=== PATIENT | male | born 1990 | race Caucasian/White ===

== ENCOUNTER 2016-12-12 10:23 | Inpatient (IN) | payer OTHER, SELFPAY ==
[2016-12-12] MEDS ORDERED: Ondansetron HCl/PF 4 MG/2 ML Vial ONE (10:32)
[2016-12-12 10:55] LABS: #Basophils 0.1 thou/uL (0.0-0.2); #Eosinphils 0.1 thou/uL (0.0-0.7); #Lymphocytes 2.8 thou/uL (1.20-3.40); #Monocytes 1.1 thou/uL (0.11-0.59); #Neutrophils 12.2 thou/uL (1.40-6.50); %Basophils 0.7 % (0.0-1.0); %Eosinophils 0.9 % (0.0-10.0); %Lymphocytes 17.1 % (21.0-51.0); %Monocytes 6.6 % (0.0-10.0); Hematocrit 51.8 % (42.0-52.0); Mean Platelet Volume 8.6 fL (7.4-10.4); Red Blood Cell (RBC) Count 5.68 mill/uL (4.70-6.10); White Blood Cell (WBC) Count 16.3 thou/uL (4.8-10.8)
[2016-12-12 11:18] LABS: ALT (SGPT) 25 U/L (8-55); AST (SGOT) 26 U/L (5-34); Alkaline Phosphatase 55 U/L (40-150); Anion Gap 21 mmol/L (10-20); BUN (Urea Nitrogen) 20 mg/dL (8.9-20.6); Calc. Creatinine Clearance 0 mL/min (70-130); Calcium 9.5 mg/dL (7.8-10.44); Carbon Dioxide 20 mmol/L (22-29); Chloride 98 mmol/L (98-107); Estimated GFR-MDRD 81; Globulin 3.1 g/dL (2.4-3.5); Protein, Total 7.7 g/dL (6.0-8.3)
[2016-12-12] MEDS ORDERED: Haloperidol Lactate 5 MG/ML VIAL ONE (11:38)
[2016-12-12] MEDS ORDERED: Morphine 10 MG/ML VIAL ONE (11:38)
[2016-12-12 11:50] LABS: Lactic Acid - Sepsis 1.8 mmol/L (0.5-2.2)
[2016-12-12] MEDS ORDERED: Insulin Regular 100 units/100 ml in NS IVPB SCH (12:45)
--- NOTE | 2016-12-12 12:45 | ULT ---
RIGHT UPPER QUADRANT ULTRASOUND: 12/12/2016 PROVIDED CLINICAL HISTORY: Nausea, vomiting, and abdominal pain. FINDINGS: The visualized abdominal aorta, IVC, and pancreas appear normal. The liver demonstrates no mass or intrahepatic biliary ductal dilatation. The common duct is not dilated. The gallbladder demonstrat es no stones, wall thickening, or pericholecystic fluid. The right kidney demonstrates no evidence for hydronephrosis or mass. The renal parenchyma appears echogenic which may reflect medical renal disease. IMPRESSION: 1. No evidence for an acute process. 2. Echogenic right kidney may reflect medical renal disease. POS: OFF
[2016-12-12] MEDS ORDERED: Insulin Regular 300 UNITS/3 ML VIAL ONE (13:15)
[2016-12-12] MEDS ORDERED: Calcium Carbonate 500 MG ChewTAB PO PRN (13:18)
[2016-12-12] MEDS ORDERED: Acetaminophen 325 MG TAB PO PRN (13:18)
[2016-12-12] MEDS ORDERED: hydrALAZINE 20 MG/ML VIAL SLOW IVP PRN (13:18)
[2016-12-12] MEDS ORDERED: Dextrose 5% in Water 1,000 ML IV PRN (13:18)
[2016-12-12] MEDS ORDERED: Dextrose 50% Abboject 50 ML SYRINGE SLOW IVP PRN (13:18)
--- NOTE | 2016-12-12 14:20 | HP ---
CHIEF COMPLAINT: Nausea, vomiting, and 2 episodes of blood in the vomitus. HISTORY OF PRESENT ILLNESS: This is a 26-year-old pleasant gentleman who has been nauseated and vom iting for the last 3 days. The patient denies any constipation or diarrhea. He reports that he can not eat and he has got severe abdominal pain associated with vomiting. He denies any fever, chills, diarrhea or dysuria. He admits that this has happened many times in the past. The last time was i june for which he had went to the emergency room and was given some IV fluids and pain medication a nd sent home. At that point, it resolved by itself. The patient also said that he has had multiple admits for this in the last couple of years and nobody is able to give him accurate diagnosis. He says that he does not take the Reglan, which was prescribed as one of his home medications. The tam pereira right now is going to be admitted for further evaluation and treatment of nausea, vomiting, and hematemesis. PAST MEDICAL HISTORY: Significant for diabetes mellitus, some vague history of irregular heartbeat, possibly paroxysmal atrial fibrillation. PAST SURGICAL HISTORY: None. SOCIAL HISTORY: Marijuana use, tobacco use, no alcohol use, former drug use. FAMILY HISTORY: Significant for no diabetes or high blood pressure. MEDICATIONS: Include Reglan, Lantus and Humalog, he takes about 27 units b.i.d. of Lantus. ALLERGIES: None. REVIEW OF SYSTEMS: Significant for nausea, vomiting, and hematemesis. Otherwise, fever, no chills, no headache, no appetite and latencies. No cough, no chest pain, no diarrhea, dysuria or polyuria. No memory or mood changes. No neck pain. Please note in HPI, the abdominal pain started along wi th nausea, vomiting, and is supposed to be quite severe at about 9/10 in intensity. It does not rad iate. It is generalized, not associated with food. PHYSICAL EXAMINATION: VITAL SIGNS: Blood pressure is 143/71, pulse is 72, respirations 19, satting well on room air. GENERAL: Patient is lying in bed in moderate distress because of the nausea, vomiting, abdominal pa in. HEENT: Atraumatic, normocephalic. Pupils equally round, react to light. Extraocular movements int act. Mucous membranes moist. NECK: Supple. No JVD. CHEST: Breath sounds. There are no rales or rhonchi. HEART: S1, S2. No murmurs or gallops. ABDOMEN: Soft, tenderness present, generalized. Bowel sounds are present. No rebound, no guarding . EXTREMITIES: No cyanosis, clubbing or edema. Distal pulses present. NEUROLOGIC: Alert, awake, oriented. No cranial deficits. No sensorimotor deficits. SKIN: Shows multiple tattoos. NEUROLOGICAL: Alert, awake, oriented. No cranial deficits. No sensorimotor deficits. LABORATORY DATA: Lactic acid is 1.8. Lipase is 4, potassium is 3.7, creatinine is 1.08. WBC count of 16.3, hemoglobin is 16. Gallbladder ultrasound was normal. UDS is pending. UA is pending. CT scan of the abdomen is pending. ASSESSMENT AND PLAN: 1. Nausea, vomiting with some episode of hematemesis. We will monitor H\T\H. IV Protonix b.i.d. Gastrointestinal consult and will transfuse if needed. 2. Elevated white count and hemoglobin possibly secondary to dehydration secondary to nausea, vomit ing, and poor oral intake. We will hydrate the patient and monitor the labs. 3. Nausea, vomiting, possible cause could be diabetic gastroparesis. We will follow CT scan result s. We will work with GI and further caring for that. 4. Tobacco use. The patient has been counseled marijuana use. The patient has been counseled. 5. History of drug use, stable. 6. Diabetes mellitus. We will do insulin sliding scale for now. 7. Sequential compression devices for deep venous thrombosis prophylaxis. I will work with consult ants further caring for the patient.
[2016-12-12 14:37] LABS: Prothrombin Time 14.3 SEC (12.0-14.7)
[2016-12-12 15:08] VITALS: BMI 21.8
[2016-12-12] MEDS: Sodium Chloride 0.9% 1,000 ML IV SCH (15:16)
[2016-12-12] MEDS: Ondansetron HCl/PF 4 MG/2 ML Vial IVP PRN ×2 (15:22→21:21)
[2016-12-12] MEDS: Nicotine 21 MG PATCH TD SCH (15:23)
[2016-12-12] MEDS: Morphine 10 MG/ML VIAL SLOW IVP PRN ×2 (15:27→21:21)
[2016-12-12] MEDS ORDERED: Iopamidol 370 76% 50 ML VIAL FS ONE (16:17)
[2016-12-12] MEDS ORDERED: ISOVUE-370 76%-LOCM 1 ML ONE (16:17)
--- NOTE | 2016-12-12 17:15 | CT ---
CT ABDOMEN AND PELVIS WITH IV AND ORAL CONTRAST: HISTORY: Abdominal pain. Nausea and vomiting. Constipation. FINDINGS: The lung bases are clear. The liver, spleen, kidneys, adrenal glands, and pancreas have a normal CT appearance. No enlarged lymph nodes or free fluid are apparent. Urinary bladder is incompletely d istended. 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 The appendix is not well-delineated although no inflammation is apparent. IMPRESSION: Chronic type findings are stable. No significant abnormalities are demonstrated. POS: [facility]
[2016-12-12] MEDS: HumaLOG 300 UNITS/3 ML VIAL SC PRN ×2 (17:37→20:06)
[2016-12-12 17:59] LABS: Bilirubin Negative (Negative); Blood, Urine Negative (Negative); Glucose, Urine (Dipstick) >=1000 mg/dL (Negative); Ketone, Urine 40 mg/dL (Negative); Nitrite Negative (Negative); Protein, Urine (Dipstick) Negative (Neg-Trace); Urobilinogen 0.2 mg/dL (0.2-1.0)
[2016-12-12 18:01] LABS: Bacteria/HPF None Seen HPF (None Seen); Hyaline Casts/LPF 0-3 HYALINE CAST LPF (0-3 Hyaline); RBC/HPF None Seen HPF (0-3); Squamous Epithelial None Seen HPF (0-3); WBC/HPF 0-3 HPF (0-3)
[2016-12-12 18:09] LABS: Amphetamine Not Detected (NotDetected); Methadone Not Detected (NotDetected); Methamphetamine Not Detected (NotDetected)
[2016-12-12] MEDS: Pantoprazole 40 MG VIAL IVP SCH (20:05)
[2016-12-12] MEDS ORDERED: Docusate 100 MG CAP PO SCH (21:00)
--- NOTE | 2016-12-12 21:07 | CON ---
DATE OF CONSULTATION: 12/12/2016 GI INPATIENT CONSULTATION NOTE REQUESTING PHYSICIAN: Mere Gonzalez MD REASON FOR CONSULTATION: Hematemesis. HISTORY OF PRESENT ILLNESS: Chaitanya Ross is a 26-year-old man with a history of diabetes who is on insulin. He reports multiple episodes of diabetic ketoacidosis in the past. He has had several hospital admissions here and [place] for recurrent nausea and vomiting. He reports having had EGD s in the past, unsure of the findings. I do not see any documentation of that in our system. He presented with about 3 days of nausea and vomiting, and what he thought was hematemesis. He says this came on fairly acutely after he went to a birthday and ate sushi for the first time. He start ed having severe epigastric pain and repeated emesis and has been unable to really keep anything [place] n over the past 3 days. Upon presentation, he was found to be in diabetic ketoacidosis with elevate d beta hydroxybutyrate, elevated glucose and elevated anion gap. He has been hemodynamically stable . He has had a couple more episodes of emesis and per nursing staff, there has been no evidence of hematemesis at all, no coffee grounds material, nothing red. The patient himself is really not sure whether there was blood before or not. His hemoglobin is 15.3. He was started on an IV PPI. Curr ently, he is feeling a bit better with rehydration. He had an abdominal ultrasound and a CT of the abdomen which are showing no acute processes. He denies any diarrhea or constipation, change in bow el habits, melena or hematochezia. REVIEW OF SYSTEMS: Full review of systems including constitutional, head, eyes, ears, nose, throat, GI, , cardiovascular, respiratory, musculoskeletal, and neurologic systems is negative except as noted in the HPI. PAST MEDICAL HISTORY: Diabetes type 1 with several episodes of diabetic ketoacidosis. ALLERGIES: No known drug allergies. OUTPATIENT MEDICATIONS: Lantus insulin, Humalog insulin. Reglan is on his medication list, but the patient does not take this. SOCIAL HISTORY: The patient does smoke tobacco. No alcohol abuse. He does use marijuana a few joanna es a week. FAMILY HISTORY: Noncontributory. PHYSICAL EXAMINATION: VITAL SIGNS: Temperature 97.1, pulse 92, blood pressure 108/67, 92% oxygen saturation on room air. GENERAL: A 26-year-old man lying in bed comfortably, in no acute distress. SKIN: No jaundice, no rash visible or palpable. EYES: No scleral icterus. Extraocular movements intact. ENT: Mucous membranes moist, no oral lesions. LYMPH: No submandibular, supraclavicular lymphadenopathy. THYROID: Nontender to palpation. HEART: Regular rate and rhythm. LUNGS: Clear to auscultation bilaterally. ABDOMEN: Bowel sounds present, soft, mild tenderness to the epigastrium, but no guarding, rebound t enderness, nondistended. EXTREMITIES: No peripheral edema. VESSELS: Radial pulses 2+ bilaterally. NEUROLOGICAL: Cranial nerves II-XII intact bilaterally. No focal deficits. LABORATORY STUDIES: WBC 16.3, hemoglobin 15.3, platelets 219. INR 1.1. Sodium 135, potassium 3.7, anion gap is 21, BUN 20, creatinine 1.08, glucose 278, lipase less than 4. Total bilirubin only 1. 0, alkaline phosphatase 55, AST 26, ALT 25, albumin 4.6. Lactic acid 1.8. Beta hydroxybutyrate 1.7 3. IMAGING STUDIES: Abdominal ultrasound shows normal liver, gallbladder, common bile duct and pancrea s. CT of the abdomen and pelvis demonstrates no acute findings. There are some chronic stable malr otation of the lower intestine, but again no acute findings, no bowel dilation, no inflammatory find ings, normal appearing liver and pancreas. ASSESSMENT AND PLAN: 1. Reported hematemesis. 2. Nausea and vomiting. 3. Epigastric pain. 4. Diabetic ketoacidosis. 5. Cannabis abuse. His presentation seems most consistent with diabetic ketoacidosis. This was likely set off after he probably had food poisoning a few days ago and then once he got dehydrated it became vicious cycle. It is unclear whether he really had hematemesis or not. His hemoglobin is certainly normal and th ere seems to be no evidence of that here. I do agree with the IV PPI for now. Would recommend we p roceed with EGD tomorrow to rule out peptic ulcer disease or other bleeding lesion. Other less like ly considerations would include diabetic gastroparesis versus cannabis hyperemesis syndrome. Thank you for the consultation. Please call with questions or concerns.
[2016-12-13] MEDS: Sodium Chloride 0.9% 1,000 ML IV SCH ×3 (00:41→17:29)
[2016-12-13 04:41] LABS: #Eosinphils 0.1 thou/uL (0.0-0.7); #Lymphocytes 3.7 thou/uL (1.20-3.40); #Neutrophils 7.1 thou/uL (1.40-6.50); %Basophils 0.3 % (0.0-1.0); %Eosinophils 0.7 % (0.0-10.0); %Lymphocytes 31.2 % (21.0-51.0); %Monocytes 8.1 % (0.0-10.0); Hematocrit 40.9 % (42.0-52.0); Mean Platelet Volume 9.5 fL (7.4-10.4); White Blood Cell (WBC) Count 11.8 thou/uL (4.8-10.8)
[2016-12-13 04:57] LABS: Anion Gap 9 mmol/L (10-20); BUN (Urea Nitrogen) 14 mg/dL (8.9-20.6); Calc. Creatinine Clearance 145 mL/min (70-130); Calcium 8.5 mg/dL (7.8-10.44); Carbon Dioxide 29 mmol/L (22-29); Chloride 101 mmol/L (98-107); Estimated GFR-MDRD Greater than 90
[2016-12-13] MEDS: Morphine 10 MG/ML VIAL SLOW IVP PRN ×2 (05:54→12:08)
[2016-12-13] MEDS: Ondansetron HCl/PF 4 MG/2 ML Vial IVP PRN (05:54)
[2016-12-13] MEDS: Pantoprazole 40 MG VIAL IVP SCH ×2 (07:52→20:15)
[2016-12-13] MEDS ORDERED: Morphine 4 MG/ML Carpuject ONE (09:35)
[2016-12-13] MEDS ORDERED: Insulin Regular 300 UNITS/3 ML VIAL ONE (09:56)
[2016-12-13] MEDS ORDERED: Propofol 200 MG/20 ML VIAL ONE (10:43)
--- NOTE | 2016-12-13 11:12 | OP ---
DATE OF PROCEDURE: 12/13/2016 GI ENDOSCOPY NOTE SURGEON: Peter Talbot M.D. APPRENTICESHIP REPRESENTATIVE SURGEON: None. PROCEDURE: Esophagogastroduodenoscopy, diagnostic. INDICATIONS: 1. Reported hematemesis. 2. Nausea and vomiting in the context of diabetic ketoacidosis. MEDICATIONS: See anesthesia record. FINDINGS: After discussion of the risks, benefits and alternatives of the procedure, informed conse nt was obtained and witnessed. Pre-endoscopic cardiopulmonary examination was satisfactory. DESCRIPTION OF PROCEDURE: Timeout was performed before sedation was achieved. Sedation was achieve d with anesthesia assistance in the endoscopy unit. A Pentax adult upper endoscope was placed into the oropharynx and passed through the cricopharyngeus under direct visualization. The esophageal mu cosa appeared normal throughout with a normal-appearing Z-line. There was no evidence of any Mallor y-Boyle tear or esophagitis. The endoscope was advanced into the stomach. Forward and retroflexed views of the entire gastric mucosa were obtained. The gastric mucosa appeared normal. No evidence of any old blood, active bleeding, or bleeding lesion. The endoscope was passed through the pylorus and into the first and second portions of the duodenum, which also appeared normal. The upper endo scope was then completely withdrawn and the patient allowed to recover. The patient tolerated the p rocedure well. There were no immediate post-procedure complications. IMPRESSION: Normal esophagogastroduodenoscopy. RECOMMENDATIONS: 1. Advance diet as tolerated. 2. Continue symptomatic treatment. 3. Continue with treatment of underlying metabolic disturbances. GI will sign off at this time, but please call back with questions or concerns.
--- NOTE | 2016-12-13 12:34 | PDOC.PN ---
- Subjective Encounter Start Date: 12/13/16 Encounter Start Time: 08:30 -: old records requested/rev Patient seen and examined. No new complaints. No overnight events - Objective MAR Reviewed: Yes Vital Signs & Weight: Vital Signs (12 hours) Temp Pulse Resp BP Pulse Ox 12/13/16 11:15 97.4 F L 70 16 111/64 99 12/13/16 08:00 97.9 F 76 16 96 12/13/16 07:26 97.9 F 76 16 111/64 96 12/13/16 04:09 97.8 F 63 18 98/58 L 96 I&O: 12/12/16 12/13/16 12/14/16 06:59 06:59 06:59 Intake Total 1.4 Balance 1.4 Result Diagrams: 12/13/16 03:31 12/13/16 03:31 Additional Labs: Accuchecks 12/13/16 12/13/16 12/13/16 11:25 10:58 10:28 POC Glucose 258 H 291 H 326 H 12/13/16 12/13/16 12/12/16 09:42 05:49 19:26 POC Glucose 324 H 323 H 311 H 12/12/16 12/12/16 16:19 13:19 POC Glucose 274 H 278 H Phys Exam - Physical Examination Constitutional: NAD HEENT: PERRLA, moist MMs, sclera anicteric Neck: no JVD, supple Respiratory: no wheezing, no rales, no rhonchi Cardiovascular: RRR, no significant murmur, no rub Gastrointestinal: soft, no distention, positive bowel sounds epigastric tenderness Musculoskeletal: no edema, pulses present Neurological: non-focal, normal sensation, moves all 4 limbs Psychiatric: normal affect, A&O x 3 Skin: no rash, normal turgor Dx/Plan (1) Epigastric abdominal pain Code(s): R10.13 - EPIGASTRIC PAIN Status: Acute (2) Hematemesis Code(s): K92.0 - HEMATEMESIS Status: Suspected Qualifiers: Nausea presence: with nausea Qualified Code(s): K92.0 - Hematemesis (3) Nausea & vomiting Code(s): R11.2 - NAUSEA WITH VOMITING, UNSPECIFIED Status: Acute (4) Cannabis abuse Code(s): F12.10 - CANNABIS ABUSE, UNCOMPLICATED Status: Chronic (5) Diabetes type 1, uncontrolled Code(s): E10.65 - TYPE 1 DIABETES MELLITUS WITH HYPERGLYCEMIA Status: Chronic - Plan cont current plan of care, plan discussed w/ family * egd is normal * continue advancing diet * medication reviewed as below * symptomatic treatment * consider discharge tomorrow. Review of Systems - Review of Systems Constitutional: negative: Fever, Chills, Sweats, Weakness, Malaise, Other Eyes: negative: Pain, Vision Change, Conjunctivae Inflammation, Eyelid Inflammation, Redness, Other ENT: negative: Ear Pain, Ear Discharge, Nose Pain, Nose Discharge, Nose Congestion, Mouth Pain, Mouth Swelling, Throat Pain, Throat Swelling, Other Respiratory: negative: Cough, Dry, Shortness of Breath, Hemoptysis, SOB with Excertion, Pleuritic Pain, Sputum, Wheezing Cardiovascular: negative: Chest Pain, Palpitations, Orthopnea, Paroxysmal Noc. Dyspnea, Edema, Light Headedness, Other Gastrointestinal: Nausea, Abdominal Pain. negative: Vomiting, Diarrhea, Constipation, Melena, Hematochezia, Other Genitourinary: negative: Dysuria, Frequency, Incontinence, Hematuria, Retention , Other Musculoskeletal: negative: Neck Pain, Shoulder Pain, Arm Pain, Back Pain, Hand Pain, Leg Pain, Foot Pain, Other Skin: negative: Rash, Lesions, Angelo, Bruising, Other - Medications/Allergies Allergies/Adverse Reactions: Allergies Allergy/AdvReac Type Severity Reaction Status Date / Time No Known Allergies Allergy Verified 12/12/16 15:07 Medications: Current Medications Acetaminophen (Tylenol) 650 mg PO Q4H PRN PRN Reason: Headache/Fever or Pain Calcium Carbonate (Tums) 1,000 mg PO Q4H PRN PRN Reason: Heartburn or Indigestion Dextrose/Water (Dextrose 50%) 25 gm SLOW IVP PRN PRN PRN Reason: Hypoglycemia Glucagon (Glucagon) 1 mg IM PRN PRN PRN Reason: Hypoglycemia Hydralazine HCl (Apresoline) 10 mg SLOW IVP Q4H PRN PRN Reason: Systolic BP > 180 Insulin Human Regular 100 (units/ Sodium Chloride) 101 mls @ 0 mls/hr IVPB INF CARLEE PRN Reason: Titrate Dextrose/Water (D5w) 1,000 mls @ 0 mls/hr IV .Q0M PRN; As Directed PRN Reason: Hypoglycemia Sodium Chloride (Normal Saline 0.9%) 1,000 mls @ 100 mls/hr IV .Q10H [facility] Stop: 12/14/16 13:31 Last Admin: 12/13/16 07:55 Dose: 1,000 mls Insulin Human Lispro (Humalog) 0 units SC .AGGRESSIVE SLIDING PRN PRN Reason: Aggressive Correctional Scale Last Admin: 12/12/16 20:06 Dose: 11 unit Metoclopramide HCl (Reglan) 5 mg IVP Q4H PRN PRN Reason: Nausea Morphine Sulfate (Morphine) 2 mg SLOW IVP Q4H PRN PRN Reason: Pain Stop: 12/13/16 13:54 Last Admin: 12/13/16 12:08 Dose: 2 mg Nicotine (Nicoderm Patch) 21 mg TD Q24HR [facility] Last Admin: 12/12/16 15:23 Dose: 21 mg Ondansetron HCl (Zofran) 4 mg IVP Q6H PRN PRN Reason: Nausea/Vomiting Last Admin: 12/13/16 05:54 Dose: 4 mg Pantoprazole Sodium (Protonix) 40 mg IVP BID [facility] Last Admin: 12/13/16 07:52 Dose: 40 mg Sodium Chloride (Flush - Normal Saline) 10 ml IVF PRN PRN PRN Reason: Saline Flush Last Admin: 12/12/16 20:05 Dose: 10 ml
[2016-12-13] MEDS: HumaLOG 300 UNITS/3 ML VIAL SC PRN ×2 (15:54→20:16)
[2016-12-13] MEDS: Nicotine 21 MG PATCH TD SCH (15:57)
[2016-12-13] MEDS: traMADol HCl 50 MG TAB PO PRN ×2 (16:48→22:46)
[2016-12-14] MEDS: Sodium Chloride 0.9% 1,000 ML IV SCH (01:59)
[2016-12-14 04:57] LABS: #Basophils 0.1 thou/uL (0.0-0.2); #Eosinphils 0.1 thou/uL (0.0-0.7); #Lymphocytes 2.8 thou/uL (1.20-3.40); #Monocytes 0.7 thou/uL (0.11-0.59); #Neutrophils 5.5 thou/uL (1.40-6.50); %Basophils 0.7 % (0.0-1.0); %Eosinophils 1.2 % (0.0-10.0); %Lymphocytes 30.4 % (21.0-51.0); %Monocytes 7.8 % (0.0-10.0); Hematocrit 41.7 % (42.0-52.0); Mean Platelet Volume 8.7 fL (7.4-10.4); Red Blood Cell (RBC) Count 4.53 mill/uL (4.70-6.10); White Blood Cell (WBC) Count 9.1 thou/uL (4.8-10.8)
[2016-12-14] MEDS: HumaLOG 300 UNITS/3 ML VIAL SC PRN ×2 (05:10→08:45)
[2016-12-14 05:11] LABS: Anion Gap 14 mmol/L (10-20); BUN (Urea Nitrogen) 18 mg/dL (8.9-20.6); Calc. Creatinine Clearance 120 mL/min (70-130); Calcium 8.4 mg/dL (7.8-10.44); Carbon Dioxide 22 mmol/L (22-29); Chloride 103 mmol/L (98-107); Estimated GFR-MDRD 89
[2016-12-14] MEDS: Ondansetron HCl/PF 4 MG/2 ML Vial IVP PRN ×2 (05:15→11:21)
[2016-12-14] MEDS: Metoclopramide HCl 10 MG/2 ML VIAL IVP PRN ×2 (06:19→09:32)
[2016-12-14 08:24] VITALS: BP 152/87
[2016-12-14] MEDS: Pantoprazole 40 MG VIAL IVP SCH (08:41)
[2016-12-14] MEDS ORDERED: INSULIN DETEMIR SC SCH (09:00)
[2016-12-14] MEDS ORDERED: PRE FILLED SC SCH (09:00)
[2016-12-14] MEDS ORDERED: INSULIN GLARGINE HUM REC ANLOG 27 UNIT SQ SCH (09:00)
--- NOTE | 2016-12-14 11:50 | PDOC.PN ---
- Subjective Encounter Start Date: 12/14/16 Encounter Start Time: 06:45 Subjective: c/o abd pain - Objective MAR Reviewed: Yes Vital Signs & Weight: Vital Signs (12 hours) Temp Pulse Resp BP Pulse Ox 12/14/16 08:00 99.0 F 74 16 152/87 H 99 12/14/16 04:00 98.2 F 97 20 113/63 98 12/14/16 00:00 98.5 F 77 20 115/66 95 I&O: 12/13/16 12/14/16 12/15/16 06:59 06:59 05:59 Intake Total 2031.4 4866 Output Total 600 Balance 2031.4 4266 Result Diagrams: 12/14/16 04:26 12/14/16 04:26 Additional Labs: Accuchecks 12/14/16 12/13/16 12/13/16 05:07 19:31 15:38 POC Glucose 393 H 356 H 390 H 12/13/16 11:25 POC Glucose 258 H Phys Exam - Physical Examination HEENT: PERRLA, moist MMs Neck: no JVD, supple Respiratory: no wheezing, no rales Cardiovascular: RRR, no significant murmur Gastrointestinal: soft, no distention, positive bowel sounds no rigidity or guarding Musculoskeletal: no edema, pulses present Neurological: non-focal, moves all 4 limbs Psychiatric: A&O x 3 Dx/Plan (1) Epigastric abdominal pain Code(s): R10.13 - EPIGASTRIC PAIN Status: Acute (2) Nausea & vomiting Code(s): R11.2 - NAUSEA WITH VOMITING, UNSPECIFIED Status: Acute Qualifiers: Vomiting type: unspecified (3) Cannabis abuse Code(s): F12.10 - CANNABIS ABUSE, UNCOMPLICATED Status: Chronic (4) Diabetes type 1, uncontrolled Code(s): E10.65 - TYPE 1 DIABETES MELLITUS WITH HYPERGLYCEMIA Status: Chronic Qualifiers: Diabetes mellitus complication status: with hyperglycemia Qualified Code(s) : E10.65 - Type 1 diabetes mellitus with hyperglycemia - Plan I have explained to patient that his CT and usg abdomen are normal -: EGD showed no ulcers/gastritis -: dc pt home -: pt to get his long acting insulin this am prior to dc -: has been off insulins due to npo status * .
[2016-12-14 11:55] VITALS: TEMP 98.9
--- NOTE | 2016-12-14 15:41 | DIS ---
DATE OF ADMISSION: 12/12/2016 DATE OF DISCHARGE: 12/14/2016 DISCHARGE DISPOSITION: To home. PRIMARY DISCHARGE DIAGNOSES: Hematemesis with esophagogastroduodenoscopy being normal. Epigastric pain. Multiple imaging studies, negative. Intractable nausea and vomiting. SECONDARY DISCHARGE DIAGNOSES: Diabetes mellitus type 1 and marijuana abuse. PROCEDURES DONE DURING HOSPITALIZATION: The patient has had a right upper quadrant ultrasound done, which showed no evidence of acute process. 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 No other significant abnormalities were seen. Upper endoscopy done by Dr. Peter Talbot on 12/13/2016 was normal and has had normal esophagogastroduodenoscopy. He had normal esophageal mucosa, normal appearing Z -line, gastric mucosa was normal. There was no old blood or active bleeding seen. Duodenum first and second portion appeared normal. Discharge hemoglobin and hematocrit 13 and 41, platelet count 151. PT/INR 14 and 1.1. Discharge BUN and creatinine is 18 and 1.0. Discharge serum bicarbonate is 22. Lipase was less than 4. Liver enzymes were within normal limits. Urine drug screen was positive for cannabinoids. Beta hydroxybutyrate levels were 0.46 on 2016. DISCHARGE MEDICATIONS: Patient to continue his Levemir 27 units subcu twice daily, Humalog 3 times daily before meals, Reglan p.r.n. twice daily before meals for nausea and vomiting. ALLERGIES: No known drug allergies. DISCHARGE PLAN: Patient to follow up with primary care physician in 1 week. BRIEF COURSE DURING HOSPITALIZATION: Patient initially came to ER with complaints of nausea, vomiting and 2 episodes of blood in his vomitus. He had also complained of epigastric abdominal pain. In view of this history, he was placed on Protonix and a GI consultation with Dr. Peter Talbot was requested. The patient has had upper endoscopy done, which did not reveal any acute abnormalities. He has had right upper quadrant ultrasound and a CT of the abdomen and pelvis done, none of which revealed any acute pathology to explain his epigastric pain, which was excruciating per patient. As all the imaging studies and upper endoscopy were negative with the patient's multiple hospitalizations for similar complaints, there was no organic cause found for his epigastric pain. He was counseled to stop abusing marijuana. He was also counseled regarding cessation of tobacco use. He is hemodynamically stable and will be shortly discharged home. Please see a [id number] documentation on [facility] for the day of discharge. ERMIASD
--- NOTE | 2016-12-21 16:40 | EKG ---
Test Reason : Blood Pressure : / mmHG Vent. Rate : 093 BPM Atrial Rate : 093 BPM P-R Int : 152 ms QRS Dur : 098 ms QT Int : 368 ms P-R-T Axes : 086 100 074 degrees QTc Int : 457 ms Normal sinus rhythm Biatrial enlargement Rightward axis Pulmonary disease pattern Abnormal ECG Confirmed by BRUNO COPPOLA, GABRIEL ([id number]), manager editorial YOEL PARKER ([id number]) on 12/21/2016 4:40:26 PM Referred By: Confirmed By:GABRIEL CARR MD
== END 2016-12-14 11:48 | disposition home or self-care (01) | DRG 638 ==
LOC: ERS 10:23 → T4-B 12:55
PROVIDERS: ADMIT Internal Medicine; ATTEND Internal Medicine
PROC: 0DJ08ZZ Inspection of Upper Intestinal Tract, Via Natural or Artificial Opening Endoscopic (ICD-10-PCS; principal; 2016-12-13)
DX: E10.10 Type 1 diabetes mellitus with ketoacidosis without coma (principal); K92.0 Hematemesis; I48.0 Paroxysmal atrial fibrillation; F17.210 Nicotine dependence, cigarettes, uncomplicated; E86.0 Dehydration; F12.10 Cannabis abuse, uncomplicated; R11.2 Nausea with vomiting, unspecified; Z79.4 Long term (current) use of insulin
CPT/HCPCS: 36415; 36416; 74177; 76705; 80048; 80053; 80306; 81001; 82010; 83605; 83690; 85025; 85610; 93005; 96361; 96372; 96374; 96375; A4216; C9113; J1630; J1815; J2270; J2405; J2704; J2765; J7050

== ENCOUNTER 2017-01-27 13:52 | Inpatient (IN) | payer SELFPAY ==
[2017-01-27 15:34] VITALS: BMI 21.3
[2017-01-27] MEDS ORDERED: Dextrose 5 %-0.45 % NaCl 1,000 ML IV PRN (16:35)
[2017-01-27] MEDS ORDERED: CCU Electrolyte Replacement 1 EACH IVPB ONE (16:35)
[2017-01-27] MEDS ORDERED: Ondansetron HCl/PF 4 MG/2 ML Vial IVP PRN (16:35)
[2017-01-27] MEDS ORDERED: Sodium Chloride 0.9% 1,000 ML IV PRN ×4 (16:35)
[2017-01-27] MEDS ORDERED: NS 0.9% w/ 20 MEQ KCL 1,000 ML IV PRN ×2 (16:35)
[2017-01-27] MEDS ORDERED: Metoclopramide HCl 10 MG/2 ML VIAL IVP PRN (16:35)
[2017-01-27] MEDS ORDERED: D5 1/2 NS w/20 mEq KCL 1,000 ML IV PRN (16:35)
[2017-01-27] MEDS ORDERED: cloNIDine 0.1 MG TAB PO PRN (16:35)
[2017-01-27] MEDS ORDERED: Potassium Chloride 40 MEQ in Sodium Chloride 0.9% 250 ML 250 ML IVPB PRN (17:15)
[2017-01-27] MEDS ORDERED: Potassium Chloride 40 MEQ in Premix Bag 1 BAG IVPB PRN (17:15)
[2017-01-27] MEDS ORDERED: Magnesium 2 GM/NS 0.9% 100 ML 2 GM in Premix Bag 1 BAG IVPB PRN (17:15)
[2017-01-27] MEDS ORDERED: Magnesium Oxide 400 MG TAB PO PRN ×2 (17:15)
[2017-01-27] MEDS ORDERED: Potassium Chloride 20 MEQ TAB PO PRN (17:15)
[2017-01-27] MEDS ORDERED: Potassium Phosphate 9 MMOL in Sodium Chloride 0.9% 100 ML IVPB PRN (17:15)
[2017-01-27] MEDS ORDERED: Potassium Phosphate 15 MMOL in Sodium Chloride 0.9% 250 ML 250 ML IV PRN (17:15)
[2017-01-27] MEDS ORDERED: Potassium Phosphate 12 MMOL in Sodium Chloride 0.9% 250 ML 250 ML IV PRN (17:15)
[2017-01-27] MEDS ORDERED: CCU ELECTROLYTE REPLACEMENT PROTOCOL FS PRN (17:15)
[2017-01-27 17:29] LABS: Anion Gap 13 mmol/L (10-20); BUN (Urea Nitrogen) 22 mg/dL (8.9-20.6); Calc. Creatinine Clearance 89 mL/min (70-130); Calcium 9.5 mg/dL (7.8-10.44); Carbon Dioxide 23 mmol/L (22-29); Chloride 108 mmol/L (98-107); Estimated GFR-MDRD 65
[2017-01-27 17:35] LABS: Phosphorus 1.5 mg/dL (2.3-4.7)
[2017-01-27] MEDS: Morphine 2 MG/ML SYRINGE SLOW IVP PRN ×2 (17:39→21:48)
--- NOTE | 2017-01-27 19:31 | HP ---
The patient is currently between primary care physicians and does not have one. CHIEF COMPLAINT: Nausea, vomiting, and abdominal pain. HISTORY OF PRESENT ILLNESS: Mr. Ross is a pleasant 26-year-old gentleman that has a history of fabián betes mellitus type 1. He has been diabetic for 10 years. He says that in the past 2 weeks he has b een feeling sick off and on having sweats and cold chills, but then yesterday it got extremely bad. He says that he was having severe abdominal pain and vomiting and he says that his entire body is ext remely sore to touch. He denies having any hematemesis or melena. The patient admits to vomiting a large volume. His says that it filled almost an entire trash can in almost 24 hours and his blo od sugars kept reading high and this is the reason that he came into the emergency room. He had gone to [facility] where his blood sugars were noted to be in the 700 range. He also had an elevated anion gap and he is being admitted for DKA. The patient is noted to have been in our [facility] back in December where he had an episode of abdominal pain and nausea and vomiting where he und erwent a CT scan as well as endoscopy without any significant findings. REVIEW OF SYSTEMS: Constitutional: There have been subjective fever and chills. No night sweats or weight loss. HEENT : He denies any headaches, no dizziness, no visual changes, no sore throat, rhinorrhea, neck pain, n o adenopathy. Pulmonary: No hemoptysis, no cough, no wheezing. Cardiovascular: He denies any ches t pain. There is no shortness of breath, no PND, no orthopnea. Gastrointestinal: As the history of present illness. Genitourinary: No urinary frequency, hematuria, no hesitancy. Neurologic: No fo jeffrey weakness, numbness, no seizures. Psychiatric: No symptoms of anxiety or depression. Skin and i ntegument: No skin changes, but he does say he is extremely sensitive to touch where he is basically hurting all over. PAST MEDICAL HISTORY: Significant for diabetes mellitus type 1 for 10 years. He has a history of wh at sounds like atrial fibrillation and also jumper's knee. PAST SURGICAL HISTORY: Negative. SOCIAL HISTORY: He is , has two children. He smokes about a pack of cigarettes daily. Denie s any alcohol use and occasionally uses marijuana. No other illicit drugs. FAMILY HISTORY: Significant for diabetes mellitus. ALLERGIES: No known drug allergies. CURRENT MEDICATIONS: Include NovoLog insulin on a sliding scale as well as NPH insulin 29 units twic e a day, Tylenol and tramadol. PHYSICAL EXAMINATION: GENERAL: He is alert and oriented. He appears to be in some distress. When I came into the room, t he patient was crying and his was at the bedside. HEENT: His pupils are equal, round, and reactive. Extraocular muscles are intact. Sclerae are anic teric. Throat: He has got poor dentition. NECK: There is no adenopathy, no bruits. LUNGS: Clear. There is no wheezing, no rales. CARDIOVASCULAR: He has a normal S1, S2. There is no S3 or S4. No murmurs, clicks, no rubs. ABDOMEN: Soft, it is nontender, nondistended. Positive for bowel sounds. No rebound or guarding. EXTREMITIES: There is no edema. NEUROLOGICALLY: The exam is nonfocal. LABORATORY RESULTS: The lab results from the [facility] were reviewed and he had a normal uri nalysis. The white blood cell count was 42.4, hemoglobin 14.5, hematocrit was 44.7, platelet count i s 273. Sodium was 135, potassium 3.8, chloride is 98, CO2 is 16, BUN of 32, creatinine 1.6, glucose was greater than 700. EKG was sinus tachycardia with right axis deviation, voltage criteria for LVH. Chest x-ray was reported as being negative. ASSESSMENT AND PLAN: This is a pleasant 26-year-old gentleman that presents with, 1. Acute episode of diabetic ketoacidosis. It is likely precipitated by a viral illness. He is analisa ng admitted to the [facility]. He has been placed on an insulin drip. We will place him on CCU electrolyt e replacement protocol as we expect his potassium to drop with the insulin therapy. We will also mon itor his chemistry panels periodically. Once his diabetic ketoacidosis has resolved, we will start h im back on his regular insulin dosage and titrate if needed. 2. Tobacco abuse. This was discussed here in the hospital. The need to discontinue smoking as this is extremely dangerous, especially in the setting of being diabetic, severe peripheral vascular dise ase, cancer etc., were discussed. 3. Depression. The patient says that he began becoming depressed once he was diagnosed with diabete s. There is no suicidal or homicidal ideation. We will give him a trial of Cymbalta since this may help with what appears to be some diabetic peripheral neuropathy. The potential adverse effects were described and explained to the patient and his who were at the bedside. 4. Vomiting, this could be related to cyclic vomiting from marijuana use or possibly diabetic gastro paresis and we will treat him with Reglan IV and he may benefit from a short course of Reglan orally as an outpatient. I also referred the patient in general to consider diabetic support groups, as it appears that he is not compensating well emotionally to this critical illness.
[2017-01-27] MEDS: Docusate 100 MG CAP PO SCH (20:17)
[2017-01-27] MEDS: Acetaminophen 325 MG TAB PO PRN (20:17)
[2017-01-27 21:10] LABS: Anion Gap 11 mmol/L (10-20); BUN (Urea Nitrogen) 19 mg/dL (8.9-20.6); Calc. Creatinine Clearance 108 mL/min (70-130); Calcium 8.7 mg/dL (7.8-10.44); Carbon Dioxide 24 mmol/L (22-29); Chloride 111 mmol/L (98-107); Estimated GFR-MDRD 81; Phosphorus 2.7 mg/dL (2.3-4.7)
[2017-01-28 00:54] LABS: Anion Gap 8 mmol/L (10-20); BUN (Urea Nitrogen) 17 mg/dL (8.9-20.6); Calc. Creatinine Clearance 115 mL/min (70-130); Carbon Dioxide 23 mmol/L (22-29); Chloride 110 mmol/L (98-107); Estimated GFR-MDRD 87; Phosphorus 1.9 mg/dL (2.3-4.7)
[2017-01-28] MEDS ORDERED: Metoprolol Tartrate 5 MG/5 ML VIAL IVP PRN (01:11)
[2017-01-28] MEDS ORDERED: Metoprolol Tartrate 5 MG/5 ML VIAL IVP SCH (01:15)
[2017-01-28] MEDS: Morphine 2 MG/ML SYRINGE SLOW IVP PRN ×2 (02:18→06:21)
[2017-01-28 04:55] LABS: Anion Gap 8 mmol/L (10-20); BUN (Urea Nitrogen) 15 mg/dL (8.9-20.6); Calc. Creatinine Clearance 138 mL/min (70-130); Calcium 8.6 mg/dL (7.8-10.44); Carbon Dioxide 24 mmol/L (22-29); Chloride 111 mmol/L (98-107); Estimated GFR-MDRD Greater than 90
[2017-01-28] MEDS ORDERED: Dextrose 5% in Water 1,000 ML IV PRN (08:03)
[2017-01-28] MEDS ORDERED: HumaLOG 300 UNITS/3 ML VIAL SC PRN (08:03)
[2017-01-28] MEDS ORDERED: Dextrose 50% Abboject 50 ML SYRINGE SLOW IVP PRN (08:03)
[2017-01-28] MEDS: Docusate 100 MG CAP PO SCH ×2 (08:58→20:56)
[2017-01-28] MEDS: Enoxaparin Sodium 40 MG/0.4 ML SYRINGE SC SCH (09:07)
[2017-01-28] MEDS ORDERED: NPH, Human Insulin Isophane 300 UNIT/3 ML VIAL SC SCH ×2 (10:00→16:30)
[2017-01-28] MEDS: Metoclopramide HCl 10 MG/10 ML UDCUP PO SCH ×3 (10:03→21:25)
[2017-01-28] MEDS: HumaLOG 300 UNITS/3 ML VIAL SC PRN (11:18)
[2017-01-28] MEDS: traMADol HCl 50 MG TAB PO PRN ×2 (12:08→21:56)
[2017-01-28] MEDS ORDERED: Nicotine 14 MG PATCH TOP SCH (16:00)
[2017-01-28] MEDS ORDERED: Pantoprazole 40 MG VIAL IVP SCH (17:45)
[2017-01-28] MEDS: Acetaminophen 325 MG TAB PO PRN (21:56)
[2017-01-28] MEDS: Lorazepam 0.5 MG TAB PO PRN (21:57)
[2017-01-29] MEDS: traMADol HCl 50 MG TAB PO PRN (03:55)
[2017-01-29] MEDS: Acetaminophen 325 MG TAB PO PRN ×2 (03:55→11:01)
[2017-01-29] MEDS: Lorazepam 0.5 MG TAB PO PRN ×2 (03:56→11:01)
[2017-01-29 05:40] LABS: Anion Gap 10 mmol/L (10-20); BUN (Urea Nitrogen) 10 mg/dL (8.9-20.6); Calc. Creatinine Clearance 138 mL/min (70-130); Calcium 9.2 mg/dL (7.8-10.44); Carbon Dioxide 29 mmol/L (22-29); Chloride 105 mmol/L (98-107); Estimated GFR-MDRD Greater than 90
--- NOTE | 2017-01-29 07:25 | PDOC.PN ---
- Subjective Encounter Start Date: 01/29/17 Encounter Start Time: 07:24 Mr. Garcia was seen today in follow-up for DKA. He says he feels much better today. He was able to sleep through the night Ok. He has less abdominal pain. - Objective Resuscitation Status: Resuscitation Status FULL:Full Resuscitation MAR Reviewed: Yes Vital Signs & Weight: Vital Signs (12 hours) Temp Pulse Resp BP Pulse Ox 01/29/17 04:00 98.7 F 84 20 104/62 96 01/29/17 00:40 98.7 F 97 18 117/80 94 L Weight Weight 166 lb I&O: 01/28/17 01/29/17 01/30/17 06:59 06:59 06:59 Intake Total 3902 Output Total 1450 1200 Balance 2452 -1200 Result Diagrams: 01/29/17 04:59 Additional Labs: Accuchecks 01/29/17 01/28/17 01/28/17 05:39 20:40 16:33 POC Glucose 133 H 214 H 254 H 01/28/17 01/28/17 01/28/17 15:32 11:01 10:00 POC Glucose 252 H 367 H 349 H 01/28/17 01/28/17 09:00 08:01 POC Glucose 286 H 226 H Phys Exam - Physical Examination HEENT: PERRLA Respiratory: no wheezing, no rales, no rhonchi, clear to auscultation bilateral Cardiovascular: RRR, no significant murmur, no rub Gastrointestinal: soft, non-tender, positive bowel sounds Musculoskeletal: no edema Dx/Plan (1) DKA, type 1 Code(s): E10.10 - TYPE 1 DIABETES MELLITUS WITH KETOACIDOSIS WITHOUT COMA Status: Acute (2) Cannabis abuse Code(s): F12.10 - CANNABIS ABUSE, UNCOMPLICATED Status: Chronic - Plan * DKA- Resolved * Will try to advance his diet * Blood glucose has bee stable * Possibly home later today.
--- NOTE | 2017-01-29 07:28 | PDOC.PN ---
- Subjective Encounter Start Date: 01/28/17 Encounter Start Time: 08:00 LATE ENTRY: Patient was seen in follow-up on 01/28/2017. He is feeling a little better. Still has some abdominal pain and nausea. - Objective Resuscitation Status: Resuscitation Status FULL:Full Resuscitation MAR Reviewed: Yes Vital Signs & Weight: Vital Signs (12 hours) Temp Pulse Resp BP Pulse Ox 01/29/17 04:00 98.7 F 84 20 104/62 96 01/29/17 00:40 98.7 F 97 18 117/80 94 L Weight Weight 166 lb I&O: 01/28/17 01/29/17 01/30/17 06:59 06:59 06:59 Intake Total 3902 Output Total 1450 1200 Balance 2452 -1200 Result Diagrams: 01/29/17 04:59 Additional Labs: Accuchecks 01/29/17 01/28/17 01/28/17 05:39 20:40 16:33 POC Glucose 133 H 214 H 254 H 01/28/17 01/28/17 01/28/17 15:32 11:01 10:00 POC Glucose 252 H 367 H 349 H 01/28/17 01/28/17 09:00 08:01 POC Glucose 286 H 226 H Phys Exam - Physical Examination HEENT: PERRLA Respiratory: no wheezing, no rales, no rhonchi, clear to auscultation bilateral Cardiovascular: RRR, no significant murmur, no rub Gastrointestinal: soft + epigastric tenderness no rebound or guarding Musculoskeletal: no edema Dx/Plan (1) DKA, type 1 Code(s): E10.10 - TYPE 1 DIABETES MELLITUS WITH KETOACIDOSIS WITHOUT COMA Status: Acute (2) Cannabis abuse Code(s): F12.10 - CANNABIS ABUSE, UNCOMPLICATED Status: Chronic - Plan * DKA- resolving- he will be transitioned off the Insulin drip * Advance his diet as tolerated * Smoking cessation was discussed and a nicotine patch was ordered.
[2017-01-29] MEDS ORDERED: NPH, Human Insulin Isophane 300 UNIT/3 ML VIAL SC SCH (07:30)
[2017-01-29] MEDS ORDERED: Pantoprazole 40 MG VIAL IVP SCH ×2 (09:00→21:00)
[2017-01-29] MEDS: Metoclopramide HCl 10 MG/10 ML UDCUP PO SCH ×2 (09:11→10:29)
[2017-01-29] MEDS: Docusate 100 MG CAP PO SCH (09:11)
[2017-01-29] MEDS: Enoxaparin Sodium 40 MG/0.4 ML SYRINGE SC SCH (09:12)
[2017-01-29] MEDS: HumaLOG 300 UNITS/3 ML VIAL SC PRN (12:16)
[2017-01-29 13:07] VITALS: BP 106/84; TEMP 98.6
--- NOTE | 2017-01-29 23:33 | DIS ---
DATE OF ADMISSION: 01/27/2017 DATE OF DISCHARGE: 01/29/2017 The patient currently does not have a primary care physician. DISCHARGE DISPOSITION: Home. PRIMARY DISCHARGE DIAGNOSES: 1. Diabetic ketoacidosis. 2. Diabetes mellitus type 1. 3. Nausea and vomiting, possibly from either diabetic gastroparesis or possibly cyclic vomiting synd lloyd from cannabis use. 4. Marijuana use. 5. Anxiety. 6. Depression. DISCHARGE MEDICATIONS: Include Levemir insulin 29 units twice a day, Reglan 5 mg t.i.d. as needed, N ovoLog insulin as directed, and Cymbalta 30 mg daily. CODE STATUS: FULL CODE. ALLERGIES: No known drug allergies. HOSPITAL COURSE: Mr. Ross is a pleasant 26-year-old gentleman who presented to the emergency room with nausea and vomiting and blood glucose over 700. He was found to be acidotic and was in DKA. He was admitted to the [facility] [place], started on an insulin drip and the DKA resolved overnight. He was started back on long-acting insulin as well as a sliding scale. His nausea and vomiting resolved. He also had significant degree of anxiety and depression, likely as a result of his chronic illness. This wa s discussed in detail and he was started on Cymbalta for this and this was also to help with some maida ropathic symptoms that he described as well, and after being medically stabilized, he was able to be discharged home and encouraged to have a close outpatient followup with his primary care physician.
== END 2017-01-29 17:02 | disposition home or self-care (01) | DRG 639 ==
LOC: IMCU/EMU 14:54
PROVIDERS: ADMIT Internal Medicine; ATTEND Internal Medicine
DX: E10.10 Type 1 diabetes mellitus with ketoacidosis without coma (principal); K31.84 Gastroparesis; E11.42 Type 2 diabetes mellitus with diabetic polyneuropathy; E10.43 Type 1 diabetes mellitus with diabetic autonomic (poly)neuropathy; Z79.4 Long term (current) use of insulin; R11.2 Nausea with vomiting, unspecified; F12.188 Cannabis abuse with other cannabis-induced disorder; F41.9 Anxiety disorder, unspecified; F32.9 Major depressive disorder, single episode, unspecified; F17.210 Nicotine dependence, cigarettes, uncomplicated
CPT/HCPCS: 36415; 36416; 80048; 84100; 90471; 90732; C9113; G0009; J1815; J7050

== ENCOUNTER 2017-01-30 11:21 | Emergency (ER) | payer SELFPAY ==
[2017-01-30] MEDS ORDERED: Ondansetron HCl/PF 4 MG/2 ML Vial ONE (11:34)
[2017-01-30] MEDS ORDERED: Morphine 4 MG/ML VIAL ONE (11:45)
[2017-01-30 11:47] LABS: #Basophils 0.1 thou/uL (0.0-0.2); #Eosinphils 0.1 thou/uL (0.0-0.7); #Lymphocytes 1.7 thou/uL (1.20-3.40); #Monocytes 0.7 thou/uL (0.11-0.59); #Neutrophils 8.7 thou/uL (1.40-6.50); %Basophils 0.5 % (0.0-1.0); %Eosinophils 0.6 % (0.0-10.0); %Monocytes 5.8 % (0.0-10.0); Hematocrit 45.1 % (42.0-52.0); Mean Platelet Volume 7.6 fL (7.4-10.4); Red Blood Cell (RBC) Count 4.89 mill/uL (4.70-6.10); White Blood Cell (WBC) Count 11.2 thou/uL (4.8-10.8)
[2017-01-30 12:15] LABS: Troponin I 0.022 ng/mL (< 0.028)
[2017-01-30 12:37] LABS: ALT (SGPT) 14 U/L (8-55); AST (SGOT) 12 U/L (5-34); Alkaline Phosphatase 61 U/L (40-150); Anion Gap 15 mmol/L (10-20); BUN (Urea Nitrogen) 9 mg/dL (8.9-20.6); Bilirubin, Total 1.6 mg/dL (0.2-1.2); Calc. Creatinine Clearance 0 mL/min (70-130); Calcium 10.6 mg/dL (7.8-10.44); Carbon Dioxide 25 mmol/L (22-29); Chloride 107 mmol/L (98-107); Estimated GFR-MDRD Greater than 90; Globulin 2.4 g/dL (2.4-3.5); Protein, Total 6.6 g/dL (6.0-8.3)
[2017-01-30 15:07] LABS: Bilirubin Negative (Negative); Blood, Urine Negative (Negative); Glucose, Urine (Dipstick) >=1000 mg/dL (Negative); Ketone, Urine 80 mg/dL (Negative); Nitrite Negative (Negative); Protein, Urine (Dipstick) Negative (Neg-Trace)
== END 2017-01-30 14:50 | disposition home or self-care (01) ==
LOC: ERS 11:21
DX: R07.2 Precordial pain (principal); R11.10 Vomiting, unspecified; I48.91 Unspecified atrial fibrillation; E10.9 Type 1 diabetes mellitus without complications; F41.9 Anxiety disorder, unspecified; F32.9 Major depressive disorder, single episode, unspecified; F17.210 Nicotine dependence, cigarettes, uncomplicated
CPT/HCPCS: 36416; 80053; 81003; 82010; 82553; 84484; 85025; 93005; 94760; 96361; 96374; 96375; 99406; J2270; J2405

== ENCOUNTER 2017-03-26 09:57 | Inpatient (IN) | payer SELFPAY ==
[2017-03-26 10:27] LABS: Bilirubin Negative (Negative); Blood, Urine Negative (Negative); Clarity CLEAR (Clear); Glucose, Urine (Dipstick) >=1000 mg/dL (Negative); Leukocyte Negative (Negative); Nitrite Negative (Negative); Protein, Urine (Dipstick) 30 mg/dL (Neg-Trace); Specific Gravity, Urine 1.028 (1.002-1.036); Urobilinogen 0.2 mg/dL (0.2-1.0); pH, Urine 5.5 (5.0-9.0)
[2017-03-26 10:29] LABS: Bacteria/HPF None Seen HPF (None Seen); Hyaline Casts/LPF 0-3 HYALINE CAST LPF (0-3 Hyaline); Squamous Epithelial None Seen HPF (0-3); WBC/HPF 0-3 HPF (0-3)
[2017-03-26] MEDS ORDERED: Ondansetron HCl/PF 4 MG/2 ML Vial ONE ×2 (10:31→12:02)
[2017-03-26 10:35] LABS: Hemoglobin 16.8 g/dL (14.0-18.0); Mean Corpuscular HGB CONC 33.2 g/dL (32.0-36.0); Mean Corpuscular Hemoglobin 31.1 pg (27.0-31.0); Mean Corpuscular Volume 93.5 fl (80.0-94.0); Platelet Count 260 thou/uL (130-400); RBC Distribution Width 12.7 % (11.5-14.5); Red Blood Cell (RBC) Count 5.41 mill/uL (4.70-6.10); White Blood Cell (WBC) Count 22.8 thou/uL (4.8-10.8)
[2017-03-26 10:50] LABS: Lymphocytes 5 % (21-51); MDiff Complete? YES; Monocytes 4 % (0-10); Neutrophil 85 % (42-75); Reactive Lymphocytes 6 % (0-10)
--- NOTE | 2017-03-26 10:57 | RAD ---
PORTABLE CHEST ONE VIEW: Date: 03-26-17 Time: 10:53 a.m. History: Nausea, vomiting. FINDINGS: Comparison is made with exam of 06-14-16. The heart size is normal. The lungs are expanded and clear. The bony thorax is normal. IMPRESSION: Normal exam. POS: TASHIA
[2017-03-26 10:58] LABS: ALT (SGPT) 20 U/L (8-55); AST (SGOT) 16 U/L (5-34); Albumin 5.6 g/dL (3.5-5.0); Alkaline Phosphatase 102 U/L (40-150); BUN (Urea Nitrogen) 29 mg/dL (8.9-20.6); Calc. Creatinine Clearance 0 mL/min (70-130); Chloride 90 mmol/L (98-107); Estimated GFR-MDRD 37; Globulin 3.6 g/dL (2.4-3.5); Lipase 9 U/L (8-78); Magnesium 2.8 mg/dL (1.6-2.6); Phosphorus 4.1 mg/dL (2.3-4.7); Potassium 4.6 mmol/L (3.5-5.1); Protein, Total 9.2 g/dL (6.0-8.3); Sodium 130 mmol/L (136-145)
[2017-03-26 11:03] LABS: Carbon Dioxide Less than 8 mmol/L (22-29); Glucose 578 mg/dL (70-105)
[2017-03-26] MEDS ORDERED: Insulin Regular (Human) 100 UNITS, Admixture Fee 1 EACH in Sodium Chloride 0.9% 100 ML IVPB SCH (11:15)
[2017-03-26] MEDS ORDERED: ADMIXTURE FEE IVPB SCH (11:15)
[2017-03-26] MEDS ORDERED: POTASSIUM CHLORIDE IVPB SCH (11:15)
[2017-03-26] MEDS ORDERED: SODIUM CHLORIDE IVPB SCH (11:15)
[2017-03-26] MEDS ORDERED: Insulin Regular 300 UNITS/3 ML VIAL ONE (11:32)
[2017-03-26] MEDS ORDERED: Sodium Chloride 0.9% 1,000 ML IV SCH (14:16)
[2017-03-26] MEDS ORDERED: Ondansetron HCl/PF 4 MG/2 ML Vial IVP PRN ×2 (14:16→14:22)
[2017-03-26] MEDS ORDERED: Ondansetron ODT 4 MG TAB SL PRN (14:16)
[2017-03-26] MEDS ORDERED: Acetaminophen 325 MG TAB PO PRN ×2 (14:16→14:22)
[2017-03-26] MEDS ORDERED: Nitroglycerin 0.4 MG TAB (25 Tab Bottle) SL PRN (14:22)
[2017-03-26] MEDS ORDERED: Dextrose 5 %-0.45 % NaCl 1,000 ML IV PRN (14:22)
[2017-03-26] MEDS ORDERED: NS 0.9% w/ 20 MEQ KCL 1,000 ML IV PRN ×2 (14:22)
[2017-03-26] MEDS ORDERED: Benzonatate 100 MG CAP PO PRN (14:22)
[2017-03-26] MEDS ORDERED: Diabetic Tussin 200 MG/10 ML UDCUP PO PRN (14:22)
[2017-03-26] MEDS ORDERED: Senokot 8.6 MG TAB PO PRN (14:22)
[2017-03-26] MEDS ORDERED: Mag-Al 1200 mg/1200 mg/30 ML UDCUP PO PRN (14:22)
[2017-03-26] MEDS ORDERED: cloNIDine 0.1 MG TAB PO PRN (14:22)
[2017-03-26] MEDS ORDERED: hydrALAZINE 20 MG/ML VIAL SLOW IVP PRN (14:22)
[2017-03-26] MEDS ORDERED: Sodium Chloride 0.9% 1,000 ML IV PRN ×4 (14:22)
[2017-03-26] MEDS ORDERED: Bisacodyl 5 MG TAB PO PRN (14:22)
[2017-03-26] MEDS ORDERED: Loratadine 10 MG TAB PO PRN (14:22)
[2017-03-26] MEDS ORDERED: Lorazepam 1 MG TAB PO PRN (14:22)
[2017-03-26] MEDS ORDERED: CCU Electrolyte Replacement 1 EACH IVPB SCH (14:22)
[2017-03-26 15:07] LABS: Anion Gap 25 mmol/L (10-20); BUN (Urea Nitrogen) 25 mg/dL (8.9-20.6); Calc. Creatinine Clearance 70 mL/min (70-130); Calcium 8.8 mg/dL (7.8-10.44); Carbon Dioxide 10 mmol/L (22-29); Chloride 104 mmol/L (98-107); Estimated GFR-MDRD 52; Glucose 230 mg/dL (70-105); Potassium 3.8 mmol/L (3.5-5.1); Sodium 135 mmol/L (136-145)
[2017-03-26] MEDS: D5 1/2 NS w/20 mEq KCL 1,000 ML IV PRN ×2 (15:09→23:06)
[2017-03-26] MEDS ORDERED: Sodium Bicarb 50 MEQ/50 ML Abboject 8.4% SYRINGE IVP SCH (15:15)
[2017-03-26] MEDS ORDERED: Mag-Al Plus 1200 MG/1200 MG/120 MG/30 ML UDCUP PO PRN (15:18)
[2017-03-26] MEDS ORDERED: Sodium Bicarbonate 50 MEQ in Sodium Chloride 0.45% 1,000 ML IV SCH (15:30)
[2017-03-26 16:15] LABS: Magnesium 2.5 mg/dL (1.6-2.6)
--- NOTE | 2017-03-26 16:28 | HP ---
DATE OF ADMISSION: 03/26/2017 PRIMARY CARE PHYSICIAN: Hiro Torres M.D. CHIEF COMPLAINT: Excessive vomiting, abdominal pain and generalized weakness and achiness. HISTORY OF PRESENTING ILLNESS: Mr. Ross is a 26-year-old male with known history of diabetes melli tus type 1 and episodes of DKA as recently as 01/2017, presented to the emergency room with the above -mentioned complaint. History is mainly obtained by the patient himself and electronic medical recor ds have been reviewed. The patient was admitted multiple times last year. Most recently in 01/2017 with DKA and prior to that in 12/2016 with DKA, nausea, vomiting. He actually went an EGD at that ti wi, which was unremarkable. He came to the emergency room today complaining of feeling worse for the last 6 days. He could not d escribe any inciting factors to his illness. He started to feel nauseous and then shortly after that started to vomit 6 days ago and it has progressively gotten worse. It is associated with significan t abdominal pain for the last 2 days. Unfortunately, he ran out of his short-acting insulin 2 days a go, but he was still able to use his long-acting Lantus as of last night. He also endorses some chil ls. He denies any headache, vision changes. He denies any shortness of breath or cough. He denies any fever, rhinorrhea, or sore throat. He denies any diarrhea. He denies any dysuria, frequency or urgency. He has no recent travel history. He is not sedentary. Upon presentation to the emergency room, he was quite tachycardic with a heart rate of 146. His work up showed significant anion gap metabolic acidosis as well as leukocytosis. His beta hydroxybutyrate is elevated to 15.23. His blood sugar was elevated to 576 and he has evidence of acute renal insuff iciency with BUN of 29, creatinine 2.12. Presumptive diagnosis of diabetic ketoacidosis was made and he was started on insulin drip and received 2 liters of IV fluids. Rapid swab of influenza done in the emergency room is negative. Chest x-ray does not show any evidence to suggest infiltrates. He i s now being admitted to [facility] with DKA protocol. PAST MEDICAL HISTORY: 1. Diabetes mellitus, type 1. 2. History of diabetic ketoacidosis. 3. History of atrial fibrillation in the past. 4. History of jumper's knee. PAST SURGICAL HISTORY: None. SOCIAL HISTORY: He is and has 2 children and his takes care of him. He has history of marijuana abuse, but denies any illicit drugs. He is still smoking, but he used to smoke a pack of c igarettes daily. FAMILY HISTORY: Significant for diabetes. ALLERGIES: No known medication allergies. HOME MEDICATIONS: As follows: Reglan 5 mg p.o. t.i.d. p.r.n., Levemir 29 units subcu b.i.d., Cymbal ta 30 mg daily and NovoLog 100 units as per the sliding scale. REVIEW OF SYSTEMS: The patient is complaining of significant substernal pain in the chest, which is tender to palpation. He reports that it feels like a burning sensation. It started just few minutes ago. It is not associated with any shortness of breath. The following complete review of systems w as negative, unless otherwise mentioned in the HPI or below: Constitutional: Weight loss or gain, ability to conduct usual activities. Skin: Rash, itching. Eyes: Double vision, pain. ENT/Mouth: Nose bleeding, neck stiffness, pain, tenderness. Cardiovascular: Palpitations, dyspnea on exertion, orthopnea. Respiratory: Shortness of breath, wheezing, cough, hemoptysis, fever or night sweats. Gastrointestinal: Poor appetite, abdominal pain, heartburn, nausea, vomiting, constipation, or diarr hea. Genitourinary: Urgency, frequency, dysuria, nocturia. Musculoskeletal: Pain, swelling. Neurologic/Psychiatric: Anxiety, depression. Allergy/Immunologic: Skin rash, bleeding tendency. It is negative except for those mentioned in the history and physical. LABORATORY DATA: His CBC shows WBCs 22.8 with 85% neutrophils, otherwise unremarkable. Serum chemis tries: Sodium 130, chloride 90, bicarbonate less than 8, BUN 29, creatinine 2.12, blood sugar of 578 . Magnesium high at 2.8, lipase is normal at 9, liver enzymes within normal limits, phosphorus 4.1, serum osmolality is 311. His repeat serum chemistries in about 4 hours show sodium of 135, improveme nt in bicarbonate to 10, anion gap 25, BUN 25, creatinine 1.59 with a blood sugar of 230. Urine has glucosuria, ketonuria and proteinuria. Beta hydroxybutyrate 15.23. Chest x-ray by my review has no evidence to suggest pulmonary effusion, edema or infiltrate. A 12-lead EKG by my review showed sinus tachycardia at 136 beats per minute. Normal ST segment, normal T waves, biatrial enlargement notice d. PHYSICAL EXAMINATION: VITAL SIGNS: Most recent vital signs include temperature 99.6, pulse of 124, respirations 20, satura ting 100% on room air, blood pressure 156/86. GENERAL: He appears very anxious and started to cry shortly after it started to discuss his care wit h him. He appears very cachectic and obviously uncomfortable. Complains of burning sensation in the chest. HEENT: Mucous membrane is slightly dry. No oropharyngeal exudate or erythema. Head is normocephali c, atraumatic. Pupils are equal, reactive to light and accommodation. Extraocular movements are int act. NECK: Supple without any lymphadenopathy, JVD or bruit. CHEST: Clear to auscultation without any wheezing, rales or rhonchi. He is tender to palpation in t he substernal area without any obvious signs of trauma. He has regular rhythm with tachycardia witho ut any murmur, rubs or gallops. ABDOMEN: Tender to palpation diffusely. EXTREMITIES: Free of any cyanosis, clubbing, or edema. No calf tenderness. NEUROLOGIC: Nonfocal. SKIN: Free of any rashes or bruises. PSYCHIATRIC: Anxiety noticed. IMPRESSION AND PLAN: 1. Diabetic ketoacidosis. He has significant amount of acidosis at this time. He will be treated i n IMCU with diabetic ketoacidosis protocol. He is on insulin drip and we will continue the IV fluids per the protocol. We will add bicarbonate to improve his tachypnea that is secondary to increased r espiratory drive due to metabolic acidosis. We will consult Pulmonary Medicine to follow along while he stays in the IMCU. CCU electrolyte replacement protocol will be started and we will check BMP ev kath 4 hours along with beta hydroxybutyrate and blood sugars every one hour. There is no obvious perico rce of infection as an inciting factor. His rapid influenza swab was negative, but because of his sy mptoms of achiness and prevalence of the influenza in the community at this time, we will obtain a PC R respiratory viral pathogen. Continue supportive care for now. 2. Chest pain. He is tender to palpation and most likely his symptoms are from acid reflux or anxie ty. Ativan and Protonix have been ordered for him. We will also use Maalox as needed. At this time , there is no evidence to suggest ACS or pulmonary embolism. The patient is not hypoxic and his EKG does not have any acute changes. If his symptoms do not improve, we will obtain cardiac enzymes. 3. Leukocytosis, likely reactive to ongoing acidosis. There is no obvious source of infection. We will recheck labs in the morning. 4. Intractable nausea and vomiting. Treat with symptomatic and supportive care with p.r.n. medicati ons. 5. Monitor magnesium, phosphorus, and potassium among with other parameters. 6. Add deep venous thrombosis and gastrointestinal prophylaxis. 7. Malnutrition with a BMI of 20.2. The patient will be started on diabetic diet as soon as his DKA resolved. He will be started on Glucerna if he tolerates. He will be n.p.o. for now. DISPOSITION: Mr. Ross is quite ill at this time with severe diabetic ketoacidosis. He will be adm itted to IMCU. Estimated length of stay at this time is at least 2-3 midnight. Further management w ill depend upon his clinical course.
[2017-03-26] MEDS ORDERED: Sodium Phosphate 30 MMOL in Sodium Chloride 0.9% 250 ML 250 ML IVPB ONE (16:45)
[2017-03-26] MEDS: traMADol HCl 50 MG TAB PO PRN (18:12)
[2017-03-26 18:59] LABS: Anion Gap 13 mmol/L (10-20); BUN (Urea Nitrogen) 22 mg/dL (8.9-20.6); Calc. Creatinine Clearance 77 mL/min (70-130); Calcium 8.6 mg/dL (7.8-10.44); Carbon Dioxide 17 mmol/L (22-29); Chloride 106 mmol/L (98-107); Estimated GFR-MDRD 58; Glucose 160 mg/dL (70-105); Potassium 3.4 mmol/L (3.5-5.1); Sodium 133 mmol/L (136-145)
[2017-03-26] MEDS: Potassium Chloride 20 MEQ TAB PO SCH (20:53)
[2017-03-26] MEDS ORDERED: Famotidine/PF 20 mg/2ml Vial SLOW IVP SCH (21:00)
[2017-03-27] MEDS: Potassium Chloride 20 MEQ TAB PO SCH (00:38)
[2017-03-27] MEDS: Ondansetron HCl/PF 4 MG/2 ML Vial IVP PRN ×3 (00:47→15:49)
--- NOTE | 2017-03-27 01:37 | CON ---
DATE OF CONSULTATION: 03/26/2017 SERVICE: Pulmonary Medicine. REASON FOR CONSULTATION: DKA. HISTORY OF PRESENT ILLNESS: The patient is a 26-year-old white male with past medical history significant for type 1 diabetes mellitus. He typically takes 28 units of insulin twice daily. He also takes rapid-acting insulin before meals. He has a difficult time affording his medication and try to make his medication last. Roughly 4 days prior to admission, he actually ran out of his rapid-acting insulin was relying solely on his long-acting insulin. He started having nausea, vomiting. He presented to the emergency department feeling very ill. He was found to be in DKA. He was initiated on insulin drip. His gap is starting to close a little bit. He currently is a little somnolent. That being said, he wakes up and is breathing comfortably. He denies any current fevers or chills or infectious profile that precipitated this event. PAST MEDICAL HISTORY: 1. Diabetic ketoacidosis. 2. Type 1 diabetes mellitus. 3. History of atrial fibrillation, remote. PAST SURGICAL HISTORY: None. SOCIAL HISTORY: He is with 2 children. He has a history of marijuana abuse, but denies any significant illegal drugs. He smokes half pack of cigarettes on a daily basis. He has roughly [id number] history of smoking. Denies any exposure to chemicals, dust asbestos or tuberculosis. FAMILY HISTORY: Noncontributory. ALLERGIES: No known drug allergies. MEDICATIONS: List of his inpatient medications were reviewed. No specific updates were made at this time. REVIEW OF SYSTEMS: General, head, ears, eyes, nose, throat, cardiovascular, respiratory, GI, , musculoskeletal, neurologic and skin is negative except as mentioned in the HPI. PHYSICAL EXAMINATION: VITAL SIGNS: Afebrile with a T-max of 99.6. Pulse 119 and improving. Blood pressure 143/83, respirations 16, saturation 99% on room air. GENERAL: The patient is awake and alert, in no apparent distress. LUNGS: Decent air entry with no prolonged expiratory phase, wheezing, rhonchi or crackles. HEART: Tachycardic. Regular. ABDOMEN: Soft, nontender, nondistended. Bowel sounds are positive. MUSCULOSKELETAL: No cyanosis or clubbing. There is no pitting in the bilateral lower extremities. NEUROLOGIC: Grossly nonfocal. LABORATORY DATA: WBC 22.8. CBC is otherwise unremarkable. Potassium is 3.4 and gently down trending. Sodium 133, bicarbonate has improved from below assay limit to 17. Anion gap has dropped all the way to 13. BUN 22 and down trending, creatinine 1.45 and roughly stable/improving. Blood sugars ranged from 160 to 128. Urinalysis is positive for urine glucose, and ketonuria as well as some small hematuria. Beta hydroxybutyric acid has essentially resolved. Influenza A and B are currently unremarkable. IMAGING: Chest x-ray demonstrates no acute cardiopulmonary abnormality. ASSESSMENT: 1. Diabetic ketoacidosis. 2. Metabolic encephalopathy. 3. Hypokalemia. 4. Acute kidney injury. PLAN: We will replace the patient's potassium and continue his insulin drip. We will try to leave him up at 6 units per hour and try not to titrate below this is his basal rate is roughly 5 units per hour. We will continue D5 half NS at a current rate until the patient's tachycardia improves. Once this does improve, we can back off on a rate ever so slightly. My hope is that he will be close by the morning. We will continue watching for signs of sepsis. If we discover anything, yu culture and empiric antibiotics will be considered. For the time being, it appears as though the patient has developed diabetic ketoacidosis secondary to medication noncompliance/trying to stretch his medications out. 70 minutes have been devoted to this patient in various activities. I personally reviewed all imaging studies and laboratory data noted within this document. For at least half of this time, I was interacting with the patient at the bedside or coordinating care with the care team. For the remainder of the time I was immediately available to the patient in the hospital unit. AISHA
[2017-03-27] MEDS: D5 1/2 NS w/20 mEq KCL 1,000 ML IV PRN ×2 (03:17→07:33)
[2017-03-27 06:05] LABS: Anion Gap 7 mmol/L (10-20); BUN (Urea Nitrogen) 15 mg/dL (8.9-20.6); Calc. Creatinine Clearance 93 mL/min (70-130); Calcium 8.4 mg/dL (7.8-10.44); Carbon Dioxide 22 mmol/L (22-29); Chloride 109 mmol/L (98-107); Estimated GFR-MDRD 72; Glucose 180 mg/dL (70-105); Magnesium 2.3 mg/dL (1.6-2.6); Phosphorus Less than 1.0 mg/dL (2.3-4.7); Potassium 3.6 mmol/L (3.5-5.1); Sodium 134 mmol/L (136-145)
[2017-03-27 06:08] LABS: #Lymphocytes 1.5 thou/uL (1.20-3.40); #Monocytes 1.4 thou/uL (0.11-0.59); #Neutrophils 9.3 thou/uL (1.40-6.50); %Basophils 0.1 % (0.0-1.0); %Eosinophils 0.3 % (0.0-10.0); %Lymphocytes 11.9 % (21.0-51.0); %Monocytes 11.3 % (0.0-10.0); %Neutrophils 76.4 % (42.0-75.0); Hemoglobin 12.9 g/dL (14.0-18.0); Mean Corpuscular HGB CONC 33.6 g/dL (32.0-36.0); Mean Corpuscular Hemoglobin 30.8 pg (27.0-31.0); Mean Corpuscular Volume 91.8 fl (80.0-94.0); Mean Platelet Volume 7.8 fL (7.4-10.4); Platelet Count 169 thou/uL (130-400); RBC Distribution Width 12.3 % (11.5-14.5); Red Blood Cell (RBC) Count 4.18 mill/uL (4.70-6.10); White Blood Cell (WBC) Count 12.2 thou/uL (4.8-10.8)
[2017-03-27] MEDS: traMADol HCl 50 MG TAB PO PRN ×3 (08:25→23:07)
[2017-03-27] MEDS ORDERED: Potassium Chloride 20 MEQ TAB PO SCH (08:30)
[2017-03-27] MEDS ORDERED: Potassium Phosphate 30 MMOL in Sodium Chloride 0.9% 500 ML IVPB SCH (09:00)
[2017-03-27] MEDS: Enoxaparin Sodium 40 MG/0.4 ML SYRINGE SC SCH (09:32)
--- NOTE | 2017-03-27 12:44 | PRG ---
DATE OF SERVICE: 03/27/2017 SERVICE: Pulmonary Medicine. INTERVAL HISTORY: The patient is doing fine from a respiratory standpoint. He is a little bit more awake today. Today, he has complaints of some epigastric discomfort. He had a little bit of nausea without vomiting overnight. He denies any constipation or diarrhea. He is passing some gas. Otherw ise, there was no events overnight and his tachycardia is resolving. PHYSICAL EXAMINATION: VITAL SIGNS: Afebrile, pulse 95, blood pressure 133/79, respirations 16, saturation 98% on room air. GENERAL: Patient is awake, alert, in no apparent distress. LUNGS: Decent air entry. There is no prolonged expiratory phase. Crackles are present dependently. HEART: Normal rate and regular. ABDOMEN: Soft, nontender, nondistended. Bowel sounds are positive. MUSCULOSKELETAL: No cyanosis or clubbing. No pitting in the bilateral lower extremities. NEUROLOGIC: Grossly nonfocal. LABORATORY DATA: WBC 12.2, hemoglobin 12.9, and platelets 169,000. Neutrophil count is 76%, which i s down trending. Blood sugars ranged from 158-182. Chloride 109, sodium 134. Basic metabolic profi le is otherwise unremarkable with a normal anion gap and normal bicarbonate at this time. Creatinine is improved to 1.20. Phosphorus remains below the assay limit. Magnesium is 2.3. Beta hydroxybuty rate acid has resolved. Influenza A and B are negative. ASSESSMENT: 1. Diabetic ketoacidosis. 2. Metabolic encephalopathy. 3. Hypokalemia, resolved. 4. Hypophosphatemia. 5. Acute kidney injury, resolving. PLAN: We will continue giving him more potassium. I will be very aggressive with phosphorus replace ment. We will repeat both of those levels in the morning. I will drop his IV fluid rate down 125 of D5 half NS per hour. He has cleared his acidosis, but has yet to develop an appetite. As such, we will hold off on providing him with p.o. nutrition. He will need to remain on IV insulin until his a ppetite perks up a little bit. I will continue to follow while he remains in the [facility].
[2017-03-27] MEDS: Dextrose 5 %-0.45 % NaCl 1,000 ML IV SCH ×2 (13:52→20:12)
--- NOTE | 2017-03-27 15:42 | PDOC.PN ---
- Subjective Encounter Start Date: 03/27/17 Encounter Start Time: 14:26 Subjective: Seen and examined feeling better but c/o abdominal discomfort - Objective Vital Signs & Weight: Vital Signs (12 hours) Temp Pulse Resp BP Pulse Ox 03/27/17 11:00 97.9 F 95 16 133/79 98 03/27/17 08:34 98.3 F 96 18 145/80 H 98 03/27/17 08:00 98.3 F 96 18 98 03/27/17 06:20 97 03/27/17 04:00 98.5 F 88 16 127/62 98 Weight Admit Weight 157 lb 9.6 oz Weight 161 lb 3.2 oz I&O: 03/26/17 03/27/17 03/28/17 06:59 06:59 06:59 Intake Total 3281 410 Output Total 1500 1125 Balance 1781 -715 Result Diagrams: 03/27/17 04:54 03/27/17 04:54 Additional Labs: Accuchecks 03/27/17 03/27/17 03/27/17 13:50 12:32 11:46 POC Glucose 190 H 187 H 158 H 03/27/17 03/27/17 03/27/17 10:51 09:39 08:14 POC Glucose 172 H 215 H 181 H 03/27/17 03/27/17 03/27/17 07:11 06:07 05:03 POC Glucose 197 H 177 H 183 H 03/27/17 03/27/17 03/27/17 04:12 03:13 02:20 POC Glucose 165 H 160 H 163 H 03/27/17 03/27/17 03/26/17 01:13 00:12 23:09 POC Glucose 175 H 155 H 117 H 03/26/17 03/26/17 03/26/17 22:01 20:58 20:01 POC Glucose 100 105 133 H 03/26/17 03/26/17 03/26/17 19:07 18:05 16:59 POC Glucose 128 H 163 H 202 H 03/26/17 03/26/17 03/26/17 16:10 15:06 14:25 POC Glucose 201 H 211 H 251 H Phys Exam - Physical Examination Constitutional: NAD HEENT: PERRLA, moist MMs, sclera anicteric, TM's clear Neck: no nodes, no JVD, supple, full ROM Respiratory: no wheezing, no rales, no rhonchi, clear to auscultation bilateral Cardiovascular: RRR, no significant murmur, no rub Gastrointestinal: soft, non-tender, no distention, positive bowel sounds Dx/Plan (1) DKA, type 1 Code(s): E10.10 - TYPE 1 DIABETES MELLITUS WITH KETOACIDOSIS WITHOUT COMA Status: Acute (2) Epigastric abdominal pain Code(s): R10.13 - EPIGASTRIC PAIN Status: Acute (3) Nausea & vomiting Code(s): R11.2 - NAUSEA WITH VOMITING, UNSPECIFIED Status: Acute Qualifiers: Vomiting type: unspecified (4) Diabetes type 1, uncontrolled Code(s): E10.65 - TYPE 1 DIABETES MELLITUS WITH HYPERGLYCEMIA Status: Chronic Qualifiers: Diabetes mellitus complication status: with hyperglycemia Qualified Code(s) : E10.65 - Type 1 diabetes mellitus with hyperglycemia - Plan PT/OT, licensed master social worker Continue insulin gtt--patient not eating well yet -: Continue IVF -: Counselling on compliance * .
[2017-03-27] MEDS: Lorazepam 1 MG TAB PO PRN ×2 (18:35→23:08)
[2017-03-28] MEDS: Dextrose 5 %-0.45 % NaCl 1,000 ML IV SCH ×3 (05:22→20:41)
[2017-03-28 06:34] LABS: Anion Gap 7 mmol/L (10-20); BUN (Urea Nitrogen) 9 mg/dL (8.9-20.6); Calc. Creatinine Clearance 155 mL/min (70-130); Calcium 8.4 mg/dL (7.8-10.44); Carbon Dioxide 28 mmol/L (22-29); Chloride 107 mmol/L (98-107); Estimated GFR-MDRD Greater than 90; Glucose 132 mg/dL (70-105); Potassium 2.8 mmol/L (3.5-5.1); Sodium 139 mmol/L (136-145)
[2017-03-28] MEDS: Ondansetron HCl/PF 4 MG/2 ML Vial IVP PRN ×3 (08:24→19:35)
[2017-03-28] MEDS: DULoxetine 30 MG CAP PO SCH (08:24)
[2017-03-28] MEDS: Enoxaparin Sodium 40 MG/0.4 ML SYRINGE SC SCH (08:24)
[2017-03-28] MEDS: Lorazepam 1 MG TAB PO PRN ×3 (08:24→20:41)
[2017-03-28] MEDS ORDERED: INSULIN DETEMIR SC SCH (10:15)
[2017-03-28] MEDS ORDERED: PRE FILLED SC SCH (10:15)
[2017-03-28] MEDS: Potassium Chloride 20 MEQ TAB PO SCH ×2 (10:41→14:56)
[2017-03-28 11:19] VITALS: BMI 21.7
[2017-03-28] MEDS ORDERED: Potassium Chloride 20 MEQ TAB PO SCH (18:00)
[2017-03-28] MEDS: traMADol HCl 50 MG TAB PO PRN (19:25)
[2017-03-28] MEDS: INSULIN DETEMIR SC SCH (20:41)
[2017-03-28] MEDS: PRE FILLED SC SCH (20:41)
--- NOTE | 2017-03-28 21:14 | PRG ---
DATE OF SERVICE: 03/28/2017 SERVICE: Pulmonary Medicine. INTERVAL HISTORY: The patient is doing great from a respiratory standpoint. He is breathing comfort ably. He has been up walking around all day long. He is tolerating most of his p.o. That being teresa d, he still has a tinge of nausea that he is not vomiting at all. Otherwise, he is pretty happy with the way things have been moving. PHYSICAL EXAMINATION: VITAL SIGNS: Afebrile, pulse 87, blood pressure 128/82, respirations 16, saturation 95% on room air. GENERAL: The patient is awake, alert, in no apparent distress. LUNGS: Decent air entry. There is no prolonged expiratory phase, wheezing, rhonchi or crackles. HEART: Normal rate, regular. ABDOMEN: Soft, nontender, nondistended. Bowel sounds are positive. MUSCULOSKELETAL: No cyanosis or clubbing. No pitting in the bilateral lower extremities. NEUROLOGIC: Grossly nonfocal. LABORATORY DATA: Potassium 2.8. Basic metabolic profile is otherwise unremarkable. Phosphorus has improved to 2.0. ASSESSMENT: 1. Diabetic ketoacidosis. 2. Metabolic encephalopathy, resolved. 3. Hypokalemia. 4. Hypophosphatemia. 5. Acute kidney injury, resolved. PLAN: We will replace the potassium and phosphorus once again. We will continue his IV fluids at 12 5 an hour, but once he returns to full p.o., these will be discontinued. At this point, he has no fu rther requirement for inpatient Pulmonary Critical Care opinion and I will sign off. Please call wit h additional questions or concerns.
[2017-03-29] MEDS: Lorazepam 1 MG TAB PO PRN ×3 (00:45→19:21)
[2017-03-29] MEDS: traMADol HCl 50 MG TAB PO PRN ×3 (00:45→15:19)
[2017-03-29 05:35] LABS: Anion Gap 6 mmol/L (10-20); BUN (Urea Nitrogen) 10 mg/dL (8.9-20.6); Calc. Creatinine Clearance 179 mL/min (70-130); Calcium 8.5 mg/dL (7.8-10.44); Carbon Dioxide 29 mmol/L (22-29); Chloride 107 mmol/L (98-107); Estimated GFR-MDRD Greater than 90; Glucose 131 mg/dL (70-105); Phosphorus 2.8 mg/dL (2.3-4.7); Potassium 3.2 mmol/L (3.5-5.1); Sodium 139 mmol/L (136-145)
[2017-03-29] MEDS: Dextrose 5 %-0.45 % NaCl 1,000 ML IV SCH ×2 (05:55→08:57)
[2017-03-29] MEDS: DULoxetine 30 MG CAP PO SCH (08:59)
[2017-03-29] MEDS: Enoxaparin Sodium 40 MG/0.4 ML SYRINGE SC SCH (08:59)
[2017-03-29] MEDS: Ondansetron HCl/PF 4 MG/2 ML Vial IVP PRN ×2 (09:07→19:21)
[2017-03-29] MEDS: PRE FILLED SC SCH ×2 (09:08→20:27)
[2017-03-29] MEDS: INSULIN DETEMIR SC SCH ×2 (09:08→20:27)
--- NOTE | 2017-03-29 15:22 | PDOC.PN ---
- Subjective Encounter Start Date: 03/29/17 Encounter Start Time: 14:20 Subjective: feeling better - Objective Vital Signs & Weight: Vital Signs (12 hours) Temp Pulse Resp BP Pulse Ox 03/29/17 08:00 97.8 F 70 16 97 03/29/17 07:06 97.8 F 70 16 112/73 97 03/29/17 06:00 97.8 F 67 18 109/69 99 Weight Admit Weight 157 lb 9.6 oz Weight 169 lb 9.6 oz I&O: 03/28/17 03/29/17 03/30/17 06:59 06:59 06:59 Intake Total 4999 3334 Output Total 2500 350 Balance 2499 2984 Result Diagrams: 03/27/17 04:54 03/29/17 04:29 Additional Labs: Accuchecks 03/29/17 03/29/17 03/28/17 11:12 04:55 19:53 POC Glucose 168 H 121 H 205 H 03/28/17 03/28/17 17:09 15:14 POC Glucose 122 H 124 H Phys Exam - Physical Examination Constitutional: NAD HEENT: PERRLA, moist MMs, sclera anicteric, TM's clear, oral pharynx no lesions Neck: no nodes, no JVD, supple, full ROM Respiratory: no wheezing, no rales, no rhonchi, clear to auscultation bilateral Cardiovascular: RRR, no significant murmur, no rub Gastrointestinal: soft, non-tender, no distention, positive bowel sounds Musculoskeletal: no edema, pulses present Dx/Plan (1) DKA, type 1 Code(s): E10.10 - TYPE 1 DIABETES MELLITUS WITH KETOACIDOSIS WITHOUT COMA Status: Acute (2) Epigastric abdominal pain Code(s): R10.13 - EPIGASTRIC PAIN Status: Acute (3) Nausea & vomiting Code(s): R11.2 - NAUSEA WITH VOMITING, UNSPECIFIED Status: Acute Qualifiers: Vomiting type: unspecified (4) Diabetes type 1, uncontrolled Code(s): E10.65 - TYPE 1 DIABETES MELLITUS WITH HYPERGLYCEMIA Status: Chronic Qualifiers: Diabetes mellitus complication status: with hyperglycemia Qualified Code(s) : E10.65 - Type 1 diabetes mellitus with hyperglycemia - Plan PT/OT, community mental health social worker, respiratory therapy D/c IVF -: May be able to d/c in am -: Off insulin gtt--encourage ambulation and po intake * .
[2017-03-29] MEDS ORDERED: Potassium Chloride 20 MEQ TAB PO SCH (17:00)
[2017-03-30] MEDS: Lorazepam 1 MG TAB PO PRN ×3 (00:52→17:23)
[2017-03-30] MEDS: traMADol HCl 50 MG TAB PO PRN ×2 (00:52→17:23)
[2017-03-30 06:44] LABS: Anion Gap 10 mmol/L (10-20); BUN (Urea Nitrogen) 8 mg/dL (8.9-20.6); Calc. Creatinine Clearance 164 mL/min (70-130); Calcium 9.1 mg/dL (7.8-10.44); Carbon Dioxide 32 mmol/L (22-29); Chloride 103 mmol/L (98-107); Estimated GFR-MDRD Greater than 90; Glucose 88 mg/dL (70-105); Phosphorus 4.2 mg/dL (2.3-4.7); Potassium 3.2 mmol/L (3.5-5.1); Sodium 142 mmol/L (136-145)
[2017-03-30] MEDS: PRE FILLED SC SCH (10:48)
[2017-03-30] MEDS: INSULIN DETEMIR SC SCH (10:48)
[2017-03-30] MEDS: DULoxetine 30 MG CAP PO SCH (10:48)
[2017-03-30] MEDS: Enoxaparin Sodium 40 MG/0.4 ML SYRINGE SC SCH (10:49)
[2017-03-30] MEDS ORDERED: Potassium Chloride 20 MEQ TAB PO SCH (17:00)
[2017-03-30 17:02] VITALS: BP 123/83; TEMP 98.2
[2017-04-01 14:29] LABS: Base Excess-Venous -18.6 mmol/L (-30.0-30.0); Bicarbonate (HCO3v) 5.8 mmol/L (1.0-85.0); Hemoglobin - Calc 18.3 g/dL (12.0-18.0); O2 Tension (PvO2) 54.6 mmHg (35.0-45.0); Potassium 4.3 mmol/L (3.4-4.7); pH (Venous) 7.224 (7.35-7.45); vO2 Saturation-calc 83.1 % (0.0-100.0)
[2017-04-01 14:30] LABS: Calcium, Ionized 0.94 mmol/L (1.12-1.32); T. Carbon Dioxide 6.2 mmol/L (1.0-85.0)
== END 2017-03-30 18:00 | disposition home or self-care (01) | DRG 637 ==
LOC: ERS 09:57 → IMCU/EMU 11:15 → T4-A 03-28 17:19
PROVIDERS: ADMIT Student in an Organized Health Care Education/Training Program; ATTEND Student in an Organized Health Care Education/Training Program
DX: E10.10 Type 1 diabetes mellitus with ketoacidosis without coma (principal); G93.41 Metabolic encephalopathy; E46 Unspecified protein-calorie malnutrition; N17.9 Acute kidney failure, unspecified; F17.210 Nicotine dependence, cigarettes, uncomplicated; R00.0 Tachycardia, unspecified; D72.829 Elevated white blood cell count, unspecified; Z68.20 Body mass index [BMI] 20.0-20.9, adult; E87.6 Hypokalemia; E83.39 Other disorders of phosphorus metabolism; F12.11 Cannabis abuse, in remission
CPT/HCPCS: 36415; 36416; 71045; 80048; 80053; 81003; 81015; 82010; 82330; 82435; 82803; 83690; 83735; 83930; 84100; 84132; 84295; 85014; 85025; 87633; 93005; 96361; 96365; 96366; 96374; 96375; 96376; A4216; J1650; J1815; J2405; J3480; J7050

== ENCOUNTER 2017-05-07 14:27 | Emergency (ER) | payer SELFPAY ==
[2017-05-07] MEDS ORDERED: Ketorolac Tromethamine 30 MG/ML VIAL ONE (16:04)
[2017-05-07] MEDS ORDERED: Ondansetron HCl/PF 4 MG/2 ML Vial ONE (16:07)
[2017-05-07 16:14] LABS: Bilirubin Moderate (Negative); Blood, Urine Negative (Negative); Clarity CLEAR (Clear); Glucose, Urine (Dipstick) 250 mg/dL (Negative); Leukocyte Negative (Negative); Nitrite Negative (Negative); Protein, Urine (Dipstick) 30 mg/dL (Neg-Trace); Specific Gravity, Urine 1.028 (1.002-1.036); Urobilinogen 0.2 mg/dL (0.2-1.0); pH, Urine 6.5 (5.0-9.0)
[2017-05-07 16:16] LABS: Bacteria/HPF None Seen HPF (None Seen); Hyaline Casts/LPF 0-3 HYALINE CAST LPF (0-3 Hyaline); Pathc Cast-AUWi Flag 0.14 (0-2.49); RBC/HPF 0-3 HPF (0-3); Squamous Epithelial 0-3 HPF (0-3); WBC/HPF 0-3 HPF (0-3)
[2017-05-07 16:22] LABS: Medtox Reader # READER 1; THC/Cannabinoid Screen Detected (NotDetected)
[2017-05-07 16:23] LABS: Amphetamine Not Detected (NotDetected); Barbiturates Screen Not Detected (NotDetected); Benzodiazepine Screen Not Detected (NotDetected); Cocaine Metabolite Screen Not Detected (NotDetected); Medtox Control Line Valid? VALID (VALID); Methadone Not Detected (NotDetected); Methamphetamine Not Detected (NotDetected); Opiate Screen Not Detected (NotDetected); Oxycodone Screen Not Detected (NotDetected); Phencyclidine (PCP) Not Detected (NotDetected); Tricyclic Screen Not Detected (NotDetected)
[2017-05-07 16:30] LABS: #Eosinphils 0.1 thou/uL (0.0-0.7); #Lymphocytes 2.1 thou/uL (1.20-3.40); #Monocytes 1.5 thou/uL (0.11-0.59); #Neutrophils 13.6 thou/uL (1.40-6.50); %Basophils 0.3 % (0.0-1.0); %Eosinophils 0.4 % (0.0-10.0); %Lymphocytes 12.1 % (21.0-51.0); %Monocytes 8.4 % (0.0-10.0); %Neutrophils 78.8 % (42.0-75.0); Hemoglobin 16.5 g/dL (14.0-18.0); Mean Corpuscular HGB CONC 34.2 g/dL (32.0-36.0); Mean Corpuscular Hemoglobin 31.1 pg (27.0-31.0); Platelet Count 221 thou/uL (130-400); RBC Distribution Width 12.5 % (11.5-14.5); White Blood Cell (WBC) Count 17.3 thou/uL (4.8-10.8)
[2017-05-07 16:49] LABS: ALT (SGPT) 16 U/L (8-55); AST (SGOT) 14 U/L (5-34); Albumin 5.1 g/dL (3.5-5.0); Alkaline Phosphatase 63 U/L (40-150); Anion Gap 18 mmol/L (10-20); BUN (Urea Nitrogen) 19 mg/dL (8.9-20.6); Bilirubin, Total 1.1 mg/dL (0.2-1.2); Calc. Creatinine Clearance 0 mL/min (70-130); Calcium 10.1 mg/dL (7.8-10.44); Carbon Dioxide 27 mmol/L (22-29); Chloride 96 mmol/L (98-107); Estimated GFR-MDRD 65; Globulin 2.9 g/dL (2.4-3.5); Glucose 253 mg/dL (70-105); Potassium 3.7 mmol/L (3.5-5.1); Sodium 137 mmol/L (136-145)
== END 2017-05-07 19:08 | disposition home or self-care (01) ==
LOC: ERS 14:27
DX: E10.65 Type 1 diabetes mellitus with hyperglycemia (principal); E86.0 Dehydration; F12.188 Cannabis abuse with other cannabis-induced disorder; I48.91 Unspecified atrial fibrillation; F41.9 Anxiety disorder, unspecified; F32.9 Major depressive disorder, single episode, unspecified; F17.210 Nicotine dependence, cigarettes, uncomplicated
CPT/HCPCS: 36415; 36416; 80053; 80306; 81003; 81015; 85025; 93005; 96361; 96374; 96375; J1885; J2405

== ENCOUNTER 2017-05-11 15:17 | Emergency (ER) | payer SELFPAY ==
[~2017-05-11 15:17] MED LIST: ISOVUE-370 76%-LOCM 1 ML ONE
[2017-05-11] MEDS ORDERED: Ondansetron HCl/PF 4 MG/2 ML Vial ONE (15:37)
[2017-05-11 15:56] LABS: #Lymphocytes 1.6 thou/uL (1.20-3.40); #Monocytes 0.7 thou/uL (0.11-0.59); #Neutrophils 8.9 thou/uL (1.40-6.50); %Basophils 0.3 % (0.0-1.0); %Eosinophils 0.3 % (0.0-10.0); %Lymphocytes 14.3 % (21.0-51.0); %Monocytes 6.2 % (0.0-10.0); %Neutrophils 78.9 % (42.0-75.0); Hemoglobin 15.7 g/dL (14.0-18.0); Mean Corpuscular HGB CONC 33.5 g/dL (32.0-36.0); Mean Corpuscular Volume 92.7 fl (80.0-94.0); Mean Platelet Volume 8.5 fL (7.4-10.4); Platelet Count 195 thou/uL (130-400); RBC Distribution Width 12.3 % (11.5-14.5); Red Blood Cell (RBC) Count 5.06 mill/uL (4.70-6.10); White Blood Cell (WBC) Count 11.3 thou/uL (4.8-10.8)
[2017-05-11] MEDS ORDERED: Morphine 4 MG/ML VIAL ONE (15:59)
[2017-05-11 16:16] LABS: ALT (SGPT) 19 U/L (8-55); AST (SGOT) 14 U/L (5-34); Albumin 4.7 g/dL (3.5-5.0); Alkaline Phosphatase 54 U/L (40-150); Anion Gap 14 mmol/L (10-20); BUN (Urea Nitrogen) 11 mg/dL (8.9-20.6); Bilirubin, Total 0.7 mg/dL (0.2-1.2); CK (CPK) 42 U/L (30-200); Calc. Creatinine Clearance 0 mL/min (70-130); Calcium 9.6 mg/dL (7.8-10.44); Carbon Dioxide 27 mmol/L (22-29); Chloride 100 mmol/L (98-107); Estimated GFR-MDRD Greater than 90; Globulin 2.5 g/dL (2.4-3.5); Glucose 304 mg/dL (70-105); Lipase 17 U/L (8-78); Magnesium 1.9 mg/dL (1.6-2.6); Potassium 3.8 mmol/L (3.5-5.1); Protein, Total 7.2 g/dL (6.0-8.3); Sodium 137 mmol/L (136-145)
[2017-05-11 16:19] LABS: CKMB 0.3 ng/mL (0-6.6); Troponin I Less than 0.010 ng/mL (< 0.028)
--- NOTE | 2017-05-11 16:20 | RAD ---
CHEST ONE VIEW: History: Chest pain. Comparison: 03-26-17 FINDINGS: Lungs are clear. No pneumothorax or effusion. Cardiac silhouette and mediastinal contours are within normal limits. IMPRESSION: No acute intrathoracic abnormality. POS: [facility]
--- NOTE | 2017-05-11 17:07 | CT ---
CTA AORTIC DISSECTION PROTOCOL WITH IV CONTRAST AND 3D REFORMATTED IMAGING: Comparison: CT abdomen/pelvis dated 12-12-16. FINDINGS: No acute aortic dissection, occlusion, or aneurysmal formation is evident. The visualized lungs are c lear. No definite central pulmonary embolis is evident. 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 This is stable to the prior exam. There is suggested wall thicke checo involving loops of jejunum within the right upper quadrant of the abdomen and right mid abdomen which can be seen with enteritis. No drainable fluid collection is evident. Liver, spleen, pancreas a nd adrenal glands appear within normal limits. Stable cysts involves the inferior pole of the left ki dney. No definite acute osseous abnormality is evident. IMPRESSION: 1. No acute aortic dissection, occlusion, or aneurysmal formation. 2. Mild atherosclerotic plaque as seen involving the right common iliac artery, stable to the compari son dated 12-12-16. 3. Wall thickening involving loops of jejunum within the right abdomen suspicious for changes of ente ritis. 4. 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 5. Stable left renal cyst. POS: [facility]
[2017-05-11 18:35] LABS: Bilirubin Negative (Negative); Blood, Urine Negative (Negative); Clarity CLEAR (Clear); Glucose, Urine (Dipstick) 500 mg/dL (Negative); Leukocyte Negative (Negative); Nitrite Negative (Negative); Protein, Urine (Dipstick) Negative (Neg-Trace); Urobilinogen 0.2 mg/dL (0.2-1.0)
--- NOTE | 2017-05-17 20:14 | EKG ---
Test Reason : CP Blood Pressure : / mmHG Vent. Rate : 060 BPM Atrial Rate : 060 BPM P-R Int : 154 ms QRS Dur : 084 ms QT Int : 408 ms P-R-T Axes : 050 086 068 degrees QTc Int : 408 ms Sinus rhythm with marked sinus arrhythmia T wave inversion V2 Otherwise normal ECG Confirmed by FERN MCKEON ([id number]), purchase request editor YOEL PARKER ([id number]) on 05/17/2017 8:14:07 PM Referred By: Confirmed By:FERN MCKEON
== END 2017-05-11 15:43 | disposition home or self-care (01) ==
LOC: ERS 15:17
DX: E10.43 Type 1 diabetes mellitus with diabetic autonomic (poly)neuropathy (principal); E10.65 Type 1 diabetes mellitus with hyperglycemia; K31.84 Gastroparesis; R07.2 Precordial pain; I48.91 Unspecified atrial fibrillation; F41.9 Anxiety disorder, unspecified; F32.9 Major depressive disorder, single episode, unspecified; F17.210 Nicotine dependence, cigarettes, uncomplicated; Z71.6 Tobacco abuse counseling; Z79.4 Long term (current) use of insulin
CPT/HCPCS: 36416; 71045; 71275; 80053; 81003; 82010; 82553; 83690; 83735; 84484; 85025; 93005; 96361; 96374; 96375; 99406; J2270; J2405

== ENCOUNTER 2017-08-11 16:07 | Inpatient (IN) | payer SELFPAY ==
[2017-08-11] MEDS ORDERED: Ondansetron ODT 4 MG TAB ONE (16:37)
--- NOTE | 2017-08-11 16:55 | RAD ---
PORTABLE CHEST ONE VIEW: 08/11/2017 3:50 p.m. HISTORY: Nausea. Vomiting. Chest pain. COMPARISON: 05/11/2017 FINDINGS: The heart size is normal. The lungs are well expanded without focal areas of consolidation, pneumoth orax, or pleural effusions. IMPRESSION: No radiographic evidence of acute cardiopulmonary process. POS: [facility]
[2017-08-11 16:58] LABS: Base Excess-Venous -13.4 mmol/L (0 (+/- 2.5)); Bicarbonate (HCO3v) 11.1 mmol/L (1.0-85.0); CO2 Tension (PvCO2) 23.5 mmHg (41.0-51.0); Calcium, Ionized 0.99 mmol/L (1.12-1.32); Hemoglobin - Calc 16.3 g/dL (12.0-18.0); Potassium 4.6 mmol/L (3.4-4.7); T. Carbon Dioxide 11.8 mmol/L (1.0-85.0); pH (Venous) 7.282 (7.35-7.45); vO2 Saturation-calc 75.2 % (94-98)
[2017-08-11 16:58] LABS: Bilirubin Negative (Negative); Blood, Urine Negative (Negative); Clarity CLEAR (Clear); Glucose, Urine (Dipstick) >=1000 mg/dL (Negative); Leukocyte Negative (Negative); Nitrite Negative (Negative); Protein, Urine (Dipstick) Negative (Neg-Trace); Urobilinogen 0.2 mg/dL (0.2-1.0)
[2017-08-11 16:59] LABS: Hemoglobin 14.8 g/dL (14.0-18.0); Mean Corpuscular HGB CONC 33.1 g/dL (32.0-36.0); Mean Corpuscular Hemoglobin 30.2 pg (27.0-31.0); Mean Corpuscular Volume 91.2 fL (78.0-98.0); Mean Platelet Volume 8.3 fL (7.4-10.4); Platelet Count 214 thou/uL (130-400); RBC Distribution Width 12.1 % (11.5-14.5); White Blood Cell (WBC) Count 27.9 thou/uL (4.8-10.8)
[2017-08-11 17:21] LABS: ALT (SGPT) 20 U/L (8-55); AST (SGOT) 14 U/L (5-34); Albumin 4.6 g/dL (3.5-5.0); Alkaline Phosphatase 68 U/L (40-150); Anion Gap 29 mmol/L (10-20); BUN (Urea Nitrogen) 25 mg/dL (8.9-20.6); Bilirubin, Total 1.3 mg/dL (0.2-1.2); Calc. Creatinine Clearance 0 mL/min (70-130); Calcium 9.5 mg/dL (7.8-10.44); Carbon Dioxide 13 mmol/L (22-29); Chloride 99 mmol/L (98-107); Estimated GFR-MDRD 46; Globulin 2.7 g/dL (2.4-3.5); Lipase 4 U/L (8-78); Magnesium 2.2 mg/dL (1.6-2.6); Phosphorus 3.9 mg/dL (2.3-4.7); Protein, Total 7.3 g/dL (6.0-8.3); Sodium 136 mmol/L (136-145)
[2017-08-11 17:27] LABS: Glucose 593 mg/dL (70-105)
[2017-08-11 17:29] LABS: Band 6 % (5-11); Lymphocytes 3 % (21-51); MDiff Complete? YES; Monocytes 8 % (0-10); Neutrophil 83 % (42-75); PLT Morphology Comment Appears Adequate; RBC Morphology Normal
[2017-08-11] MEDS ORDERED: Insulin Regular 100 units/100 ml in NS IVPB SCH (18:15)
[2017-08-11 21:05] VITALS: BMI 20.8
[2017-08-11] MEDS ORDERED: Dextrose 5% in Water 1,000 ML IV PRN (21:43)
[2017-08-11] MEDS ORDERED: Dextrose 5 %-0.45 % NaCl 1,000 ML IV PRN ×2 (21:43→22:00)
[2017-08-11] MEDS ORDERED: Sodium Chloride 0.9% 1,000 ML IV PRN ×8 (21:43→22:00)
[2017-08-11] MEDS ORDERED: D5 1/2 NS w/20 mEq KCL 1,000 ML IV PRN (21:43)
[2017-08-11] MEDS ORDERED: NS 0.9% w/ 20 MEQ KCL 1,000 ML/1,000 ML BAG IV PRN ×2 (21:43)
[2017-08-11] MEDS ORDERED: Magnesium 2 GM/NS 0.9% 100 ML 2 GM in Premix Bag 1 BAG IVPB PRN ×2 (21:45→22:10)
[2017-08-11] MEDS ORDERED: Dextrose 50% Abboject 50 ML SYRINGE SLOW IVP PRN (21:45)
[2017-08-11] MEDS ORDERED: Potassium Phosphate 9 MMOL in Sodium Chloride 0.9% 100 ML IVPB PRN ×2 (21:45→22:10)
[2017-08-11] MEDS ORDERED: Magnesium Oxide 400 MG TAB PO PRN ×4 (21:45→22:10)
[2017-08-11] MEDS ORDERED: Potassium Phosphate 15 MMOL in Sodium Chloride 0.9% 250 ML 250 ML IV PRN ×2 (21:45→22:10)
[2017-08-11] MEDS ORDERED: ADD ELECTROLYTE REPLACEMENT SET TO PROFILE FS SCH (21:45)
[2017-08-11] MEDS ORDERED: Potassium Chloride 40 MEQ in Premix Bag 1 BAG IVPB PRN ×2 (21:45→22:10)
[2017-08-11] MEDS ORDERED: Potassium Phosphate 12 MMOL in Sodium Chloride 0.9% 250 ML 250 ML IV PRN ×2 (21:45→22:10)
[2017-08-11] MEDS ORDERED: CCU ELECTROLYTE REPLACEMENT PROTOCOL FS PRN ×2 (21:45→22:10)
[2017-08-11] MEDS ORDERED: Potassium Chloride 20 MEQ TAB PO PRN ×2 (21:45→22:10)
[2017-08-11] MEDS ORDERED: Potassium Chloride 40 MEQ in Sodium Chloride 0.9% 250 ML 250 ML IVPB PRN ×2 (21:45→22:10)
[2017-08-11] MEDS ORDERED: NS 0.9% w/ 20 MEQ KCL 1,000 ML IV PRN ×2 (22:00)
[2017-08-11] MEDS ORDERED: Aluminum & Magnesium Hydroxide 60 ML, Lidocaine 2% Viscous Solution 30 ML, diphenhydrAM... SSW PRN (22:00)
[2017-08-11] MEDS ORDERED: Lorazepam 2 MG/ML VIAL SLOW IVP PRN (22:00)
[2017-08-11] MEDS ORDERED: hydrALAZINE 20 MG/ML VIAL SLOW IVP PRN (22:00)
[2017-08-11] MEDS ORDERED: CCU Electrolyte Replacement 1 EACH IVPB SCH (22:00)
[2017-08-11] MEDS ORDERED: Ondansetron HCl/PF 4 MG/2 ML Vial IVP PRN (22:00)
[2017-08-11] MEDS ORDERED: CCU Electrolyte Replacement 1 EACH FS SCH (22:01)
[2017-08-11] MEDS: Acetaminophen 500 MG TAB PO PRN (22:38)
[2017-08-11 22:44] LABS: Anion Gap 12 mmol/L (10-20); BUN (Urea Nitrogen) 20 mg/dL (8.9-20.6); Calc. Creatinine Clearance 83 mL/min (70-130); Calcium 9.1 mg/dL (7.8-10.44); Carbon Dioxide 24 mmol/L (22-29); Chloride 107 mmol/L (98-107); Estimated GFR-MDRD 61; Glucose 225 mg/dL (70-105); Potassium 3.6 mmol/L (3.5-5.1); Sodium 139 mmol/L (136-145)
[2017-08-11] MEDS: D5 1/2 NS w/20 mEq KCL 1,000 ML IV PRN (23:02)
[2017-08-11] MEDS: Ondansetron ODT 4 MG TAB PO PRN (23:06)
[2017-08-12 02:53] LABS: Band 11 % (5-11); Hemoglobin 13.3 g/dL (14.0-18.0); Lymphocytes 17 % (21-51); MDiff Complete? YES; Mean Corpuscular HGB CONC 33.4 g/dL (32.0-36.0); Mean Corpuscular Hemoglobin 30.2 pg (27.0-31.0); Mean Corpuscular Volume 90.6 fL (78.0-98.0); Mean Platelet Volume 8.9 fL (7.4-10.4); Monocytes 1 % (0-10); Neutrophil 71 % (42-75); PLT Morphology Comment Appears Decreased; Platelet Count 57 thou/uL (130-400); Red Blood Cell (RBC) Count 4.38 mill/uL (4.70-6.10); White Blood Cell (WBC) Count 16.9 thou/uL (4.8-10.8)
[2017-08-12 02:58] LABS: Hemoglobin A1c 10.6 % (4.0-6.0)
[2017-08-12] MEDS: D5 1/2 NS w/20 mEq KCL 1,000 ML IV PRN ×5 (03:21→23:51)
--- NOTE | 2017-08-12 03:50 | HP ---
DATE OF ADMISSION: 08/11/2017 PRIMARY CARE PROVIDER: Chacho fairchild. CHIEF COMPLAINT: Nausea, vomiting, and abdominal pain. HISTORY OF PRESENT ILLNESS: This is a 26-year-old male who presents to [facility] Emergency Department, complaining of persistent nausea, vomiting, abdominal pain, and decreased oral intake over the last 48 hours. The patient states the pain began approximately 3 days prior to this evaluation with abdominal pain and vomiting similar to prior episodes of gastroparesis and diabetic ketoacidosis. The patient with longstanding history of diabetes mellitus type 1, it di agnosed at age 15 on current insulin therapy to include short-acting Humulin R as well as NPH insulin 20-25 units b.i.d. The patient states he has had some difficulty continuing to obtain the insulin d ue to monetary difficulties and being consistent with control. The patient recently admitted to [facility] after a similar presentation and diagnosed with DKA. The patient biju ed any specific sick contact exposure history or change to his medication regimen. The patient state s he began the symptoms approximately 72 hours prior to this evaluation as stated previously. The tom vines tried no specific alleviating factors. The patient did take his regular insulin of 20 units pr ior to arrival. In the emergency room, the patient underwent evaluation for diabetic ketoacidosis wi th initial venous blood gas showing a pH of 7.28 and a beta hydroxybutyrate level of 8.58. The patie nt was noted with glucose of approximately 590 and placed on aggressive IV fluid hydration in additio n to insulin infusion with Novolin R at 6 units per hour. Patient also received Zofran and morphine sulfate. The patient continues to complain of heartburn and painful swallowing after multiple episod es of emesis. The patient was transferred to the Critical Care Unit for further evaluation. PAST MEDICAL HISTORY: 1. Diabetes mellitus type 1 diagnosed at 15 years of age. 2. Multiple hospitalizations for diabetic ketoacidosis. 3. Question of atrial fibrillation. PAST SURGICAL HISTORY: Reviewed and negative. CURRENT MEDICATIONS: 1. Humulin R. 2. NPH 20-25 units subcutaneously b.i.d. ALLERGIES: No known drug allergies. FAMILY HISTORY: Positive for diabetes mellitus. SOCIAL HISTORY: with 2 children, accompanied by his in the hospital. History of mariju analisa use. Half a pack of cigarettes daily. No alcohol use. Functional of all activities of daily li ving. REVIEW OF SYSTEMS: The following complete review of systems was negative, unless otherwise mentioned in the HPI or below: Constitutional: Weight loss or gain, ability to conduct usual activities. Sk in: Rash, itching. Eyes: Double vision, pain. ENT/Mouth: Nose bleeding, neck stiffness, pain, te nderness. Cardiovascular: Palpitations, dyspnea on exertion, orthopnea. Respiratory: Shortness of breath, wheezing, cough, hemoptysis, fever or night sweats. Gastrointestinal: Poor appetite, abdom inal pain, heartburn, nausea, vomiting, constipation, or diarrhea. Genitourinary: Urgency, frequenc y, dysuria, nocturia. Musculoskeletal: Pain, swelling. Neurologic/Psychiatric: Anxiety, depressio n. Allergy/Immunologic: Skin rash, bleeding tendency. PHYSICAL EXAMINATION: VITAL SIGNS: On admission, blood pressure 128/76, pulse 115, respiratory rate 20, temperature 98.5 d egrees Fahrenheit, O2 saturation 96% on room air. GENERAL APPEARANCE: This is a 26-year-old male, alert and responsive to direct questions, in moderate distress. HEENT: Pupils are equal, round, and reactive to light and accommodation. Extraocular muscles are in tact. Mild conjunctival injection bilaterally. Nares patent. OP is clear with dry oral mucosa. NECK: Supple. No cervical adenopathy, no thyromegaly, no carotid bruits, no JVD appreciated. Cervi jeffrey spine with full active and passive range of motion. No meningeal signs appreciated. CHEST: Lungs are clear to auscultation bilaterally. CARDIOVASCULAR: S1, S2 with tachycardia. No murmur, rub, or gallop appreciated. ABDOMEN: Flat with mild tenderness to palpation in bilateral upper quadrants. No rebound or guardin g noted. Bowel sounds are positive but diminished. No palpable mass. No hepatosplenomegaly. EXTREMITIES: Warm and dry with poor skin turgor. Capillary refill less than 2 seconds. No clubbing , cyanosis, or asymmetric edema of the lower extremities. NEUROLOGIC: Cranial nerves II through XII are grossly intact. No focal or lateralizing signs apprec iated. PERTINENT LABORATORY AND X-RAY FINDINGS: Sodium 133, potassium 4.6, chloride 108, CO2 of 13, anion g ap 29, BUN 25, creatinine 1.78, estimated GFR 46, glucose initially 593, calcium 9.5, phosphorus 3.9, magnesium 2.2, total bilirubin 1.3, AST 14, ALT of 20, alkaline phosphatase 68, albumin 4.6, lipase 4. CBC showed a white blood cell count of 27.9, hemoglobin 14.8, hematocrit 44.7, platelet count 214 with 83% neutrophilia. Venous blood gas dated 08/11/2017, showed a pH of 7.28, pCO2 of 24, pO2 of 4 4. Urinalysis greater than 1000 glucose and positive ketones. Beta hydroxybutyrate level 8.58. Por table chest x-ray dated 08/11/2017, showed no acute cardiopulmonary process. color television console monitor shows a sinus tachycardia with heart rates in the 110s. ASSESSMENT AND PLAN: 1. Diabetic ketoacidosis. The patient will be admitted to the critical care unit. We will continue diabetic ketoacidosis protocol. Continue regular insulin at 6 units per hour. We will continue agg ressive IV fluid hydration and monitor clinical response. Repeat beta hydroxybutyrate level in the a .m. No current evidence of focal infectious process. 2. Nausea and vomiting secondary to #1. We will continue antiemetics with Zofran 4 mg IV q.6 hours p.r.n. Continue IV fluids as stated previously. May consider trial of Reglan. 3. Acute kidney injury. Suspect secondary to dehydration and #1. We will continue aggressive IV fl uid hydration and avoid nephrotoxic agents and limit contrast exposure. Repeat creatinine in the a.m . 4. Gastroesophageal reflux. We will initiate trial of Magic Mouthwash. Pepcid 20 mg IV q.12 hours. Clear liquids as tolerated. 5. Diabetic gastroparesis. We will initiate trial of Reglan when tolerating regular oral intake. 6. Prophylaxis. Sequential compression devices while in bed. Pepcid 20 mg IV q.12 hours. Dietary consult for comprehensive diabetic education. Case management consult for disease management [facility]. 7. Code status is FULL. Surrogate medical decision maker is patient's spouse.
[2017-08-12 05:16] LABS: Albumin 3.7 g/dL (3.5-5.0)
[2017-08-12 05:17] LABS: Chloride 110 mmol/L (98-107); Potassium 3.9 mmol/L (3.5-5.1); Sodium 139 mmol/L (136-145)
[2017-08-12 05:18] LABS: Calcium 8.8 mg/dL (7.8-10.44); Glucose 188 mg/dL (70-105); Protein, Total 5.7 g/dL (6.0-8.3)
[2017-08-12 05:20] LABS: Anion Gap 11 mmol/L (10-20); Bilirubin, Total 1.3 mg/dL (0.2-1.2); Carbon Dioxide 22 mmol/L (22-29)
[2017-08-12 05:21] LABS: Alkaline Phosphatase 51 U/L (40-150); Calc. Creatinine Clearance 97 mL/min (70-130); Estimated GFR-MDRD 74
[2017-08-12 05:22] LABS: BUN (Urea Nitrogen) 17 mg/dL (8.9-20.6)
[2017-08-12 05:23] LABS: AST (SGOT) 13 U/L (5-34)
[2017-08-12 05:24] LABS: ALT (SGPT) 14 U/L (8-55)
[2017-08-12 05:41] LABS: Anion Gap 12 mmol/L (10-20); BUN (Urea Nitrogen) 17 mg/dL (8.9-20.6); Calc. Creatinine Clearance 94 mL/min (70-130); Calcium 8.7 mg/dL (7.8-10.44); Carbon Dioxide 21 mmol/L (22-29); Chloride 109 mmol/L (98-107); Estimated GFR-MDRD 71; Glucose 184 mg/dL (70-105); Potassium 3.7 mmol/L (3.5-5.1); Sodium 138 mmol/L (136-145)
[2017-08-12] MEDS: Ondansetron ODT 4 MG TAB PO PRN (07:21)
--- NOTE | 2017-08-12 08:21 | CON ---
DATE OF CONSULTATION: 08/12/2017 CONSULTING PHYSICIAN: Mariella zavala. REASON FOR CONSULTATION: ICU admission for DKA. HISTORY OF PRESENT ILLNESS: This is a 26-year-old male who came to the emergency room last night wit h nausea, vomiting, and abdominal pain that had been occurring 2 days prior to admission. He has a l ongstanding history of diabetes mellitus. It was first diagnosed about 11 years ago. He states that he is not seeing any physician in town. He basically uses his grandmother's insulin to try to keep his diabetes under control. PAST MEDICAL HISTORY: 1. Diabetes mellitus type 1. 2. Diabetic ketoacidosis. 3. Questionable history of atrial fibrillation. PAST SURGICAL HISTORY: Negative. MEDICATIONS PRIOR TO ADMISSION: Humulin R insulin. He borrows some NPH. ALLERGIES: None. FAMILY MEDICAL HISTORY: Remarkable for diabetes. SOCIAL HISTORY: Uses marijuana, smokes half pack daily, does not consume alcohol. REVIEW OF SYSTEMS: Twelve point review of systems otherwise negative. PHYSICAL EXAMINATION: VITAL SIGNS: Temperature 98.5, pulse 63, blood pressure 140/78, O2 sat 97% room air. GENERAL: He is awake, alert, in no distress. HEENT: Unremarkable. NECK: No JVD. LUNGS: Clear without wheezing or rhonchi. CARDIAC: S1, S2 regular, without murmur. ABDOMEN: Soft, nontender, nondistended. EXTREMITIES: No clubbing, cyanosis, or edema. LABORATORY DATA: Sodium 138, potassium 3.7, chloride 109, CO2 21, anion gap 12, BUN 17, creatinine 1 .2, glucose 170. White blood cell count 16.9, hematocrit 39.7, platelet count 57. Chest x-ray shows no mass, effusion or infiltrate. ASSESSMENT: Diabetic ketoacidosis with closed anion gap. RECOMMENDATIONS: The patient can be transferred out to the floor and converted over to long-acting i nsulin. He probably needs to be involved with [facility] or some entity at the time of discharge , so that he can get proper care for his diabetes mellitus. Dr. Nelson has seen the patient passed all forms of the patient's admission. Seventy minutes devoted to this consultation, of the time, greater than 50% of the time was spent wit h the patient and/or on the patient's unit in the hospital.
[2017-08-12] MEDS: Famotidine/PF 20 mg/2ml Vial SLOW IVP SCH ×2 (08:49→20:07)
--- NOTE | 2017-08-12 10:41 | PDOC.PN ---
- Subjective Encounter Start Date: 08/12/17 Encounter Start Time: 10:25 Subjective: f/u for DKA, N/V and dehydration. Feels a little better this am but some -: residual nausea. Voiding ok. Some abd pain but improved. - Objective Resuscitation Status: Resuscitation Status FULL:Full Resuscitation MAR Reviewed: Yes Vital Signs & Weight: Vital Signs (12 hours) Temp Pulse Resp Pulse Ox 08/12/17 08:00 98.3 F 60 17 96 08/12/17 03:00 98.5 F 08/12/17 00:00 98.7 F Weight Admit Weight 162 lb 7.691 oz Weight 162 lb 7.691 oz Most Recent Monitor Data Heart Rate from ECG 59 NIBP 136/77 NIBP BP-Mean 92 Respiration from ECG 14 SpO2 96 I&O: 08/11/17 08/12/17 08/13/17 06:59 06:59 06:59 Intake Total 2849 50 Output Total 1300 Balance 2849 -1250 Result Diagrams: 08/12/17 02:25 08/12/17 04:31 Additional Labs: Accuchecks 08/12/17 08/12/17 08/12/17 10:14 09:16 08:15 POC Glucose 241 H 244 H 198 H 08/12/17 08/12/17 08/12/17 07:25 06:11 05:34 POC Glucose 167 H 147 H 177 H 08/12/17 08/12/17 08/12/17 04:29 03:25 02:22 POC Glucose 170 H 176 H 162 H 08/12/17 08/12/17 08/11/17 01:31 00:17 22:55 POC Glucose 180 H 161 H 165 H 08/11/17 08/11/17 08/11/17 22:07 20:50 20:02 POC Glucose 198 H Greater than 550 H* 291 H 08/11/17 18:55 POC Glucose 374 H Laboratory Tests 08/11/17 08/11/17 08/11/17 16:49 16:49 22:13 WBC 27.9 H Neutrophils % (Manual) 83 H Hemoglobin A1c B-Hydroxybutyrate 8.58 H 1.68 H 08/12/17 08/12/17 08/12/17 02:25 02:25 02:37 WBC Neutrophils % (Manual) 71 Hemoglobin A1c 10.6 H B-Hydroxybutyrate 0.75 H EKG Reviewed by me: Yes (Tele - SR in 70's) Phys Exam - Physical Examination Constitutional: NAD HEENT: PERRLA, sclera anicteric, oral pharynx no lesions Neck: no nodes, no JVD, supple, full ROM Respiratory: no wheezing, no rales, no rhonchi, clear to auscultation bilateral S1, S2 Cardiovascular: RRR, no significant murmur, no rub, gallop Gastrointestinal: soft, non-tender, no distention, positive bowel sounds Musculoskeletal: no edema, pulses present Neurological: non-focal, normal sensation, moves all 4 limbs Psychiatric: normal affect, A&O x 3 Skin: no rash, normal turgor, cap refill <2 seconds Dx/Plan (1) DKA (diabetic ketoacidosis) Code(s): E13.10 - OTH DIABETES MELLITUS WITH KETOACIDOSIS WITHOUT COMA Status : Acute Qualifiers: Diabetes mellitus type: type 1 Comment: Slow recovery with current DKA protocol, continue current Insulin gtt and slow IVF rate, clear liquids as tolerated (2) Severe dehydration Code(s): E86.0 - DEHYDRATION Status: Acute Comment: Secondary to #1, continue IVF's, encourage free H2O intake po as tolerated (3) Nausea & vomiting Code(s): R11.2 - NAUSEA WITH VOMITING, UNSPECIFIED Status: Acute Qualifiers: Vomiting type: unspecified Comment: Continue tx as outlined above, Zofran IV prn (4) ANANT (acute kidney injury) Code(s): N17.9 - ACUTE KIDNEY FAILURE, UNSPECIFIED Status: Acute Comment: Continue IVF's, avoid nephrotoxic meds and limit contrast exposure, serial monitoring (5) DM gastroparesis Code(s): 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
[2017-08-12] MEDS: Metoclopramide HCl 10 MG/2 ML VIAL IVP SCH ×2 (13:24→20:59)
[2017-08-12] MEDS: Acetaminophen 500 MG TAB PO PRN (17:33)
[2017-08-13] MEDS: Metoclopramide HCl 10 MG/2 ML VIAL IVP SCH (05:21)
[2017-08-13 05:25] LABS: Band 13 % (5-11); Hemoglobin 12.8 g/dL (14.0-18.0); Lymphocytes 23 % (21-51); MDiff Complete? YES; Mean Corpuscular HGB CONC 33.7 g/dL (32.0-36.0); Mean Corpuscular Hemoglobin 30.4 pg (27.0-31.0); Mean Corpuscular Volume 90.2 fL (78.0-98.0); Mean Platelet Volume 8.3 fL (7.4-10.4); Monocytes 5 % (0-10); Neutrophil 59 % (42-75); PLT Morphology Comment Appears Adequate; Platelet Count 129 thou/uL (130-400); RBC Distribution Width 11.7 % (11.5-14.5); Red Blood Cell (RBC) Count 4.22 mill/uL (4.70-6.10); White Blood Cell (WBC) Count 9.1 thou/uL (4.8-10.8)
[2017-08-13 05:26] LABS: Anion Gap 9 mmol/L (10-20); BUN (Urea Nitrogen) 8 mg/dL (8.9-20.6); Calc. Creatinine Clearance 123 mL/min (70-130); Calcium 8.5 mg/dL (7.8-10.44); Carbon Dioxide 24 mmol/L (22-29); Chloride 107 mmol/L (98-107); Estimated GFR-MDRD Greater than 90; Glucose 254 mg/dL (70-105); Magnesium 1.8 mg/dL (1.6-2.6); Phosphorus 1.4 mg/dL (2.3-4.7); Potassium 3.3 mmol/L (3.5-5.1); Sodium 137 mmol/L (136-145)
[2017-08-13] MEDS: Famotidine/PF 20 mg/2ml Vial SLOW IVP SCH (09:23)
[2017-08-13] MEDS ORDERED: Dextrose 50% Abboject 50 ML SYRINGE SLOW IVP PRN (10:04)
[2017-08-13] MEDS ORDERED: Dextrose 5% in Water 1,000 ML IV PRN (10:04)
--- NOTE | 2017-08-13 10:12 | PRG ---
DATE OF SERVICE: 08/13/2017 SERVICE: Pulmonary Medicine. INTERVAL HISTORY: The patient is doing fine from a respiratory standpoint. He denies any current ch est pain, nausea, vomiting, fevers or chills. He is not having any infectious symptoms. He essentia lly has returned to his usual state of health and his appetite has gotten better. He only takes rapi d-acting insulin. He only takes on an as needed basis. He frequently misses doses. As such, it do es not surprise us that he is going to frequent episodes of DKA. He understands how important it is for him to be on long-acting medication which he frequently does not take. His big issue here is john t he does not have access to these medications. That being said, he also has told me that he does no t make much of an effort to getting it. PHYSICAL EXAMINATION: VITAL SIGNS: Afebrile, pulse 53, blood pressure 101/60, respirations 16, saturation 96% on room air. GENERAL: The patient is awake, alert, no apparent distress. LUNGS: Decent air entry. There is no prolonged expiratory phase, wheezing, rhonchi or crackles. HEART: Normal rate and regular. ABDOMEN: Soft, nontender and nondistended. Bowel sounds are positive. MUSCULOSKELETAL: No cyanosis or clubbing. No pitting in the bilateral lower extremities. NEUROLOGIC: Grossly nonfocal. LABORATORY DATA: WBC 9.1, hemoglobin 12.8 and platelets 129,000. Band count 13%. Basic metabolic p rofile is essentially unremarkable except for phosphorus of 1.4 and potassium 3.3. Magnesium falls w ithin the normal limits. Beta hydroxybutyrate previously cleared. ASSESSMENT: 1. Diabetic ketoacidosis. 2. Type 1 diabetes mellitus. 3. Medication noncompliance. DISCUSSION AND PLAN: I will switch him over to long-acting medication. In an hour, we will disconti nue insulin drip. I will replace potassium, phosphorus, and magnesium. I will give him a diet. If he tolerates p.o., he can be transitioned out of the ICU to the medical unit. Pulmonary will continu e to follow for the time being.
[2017-08-13] MEDS ORDERED: Magnesium Sulfate 2 GM in Sodium Chloride 0.9% 100 ML IVPB SCH (10:15)
[2017-08-13] MEDS ORDERED: Potassium Phosphate 30 MMOL in Sodium Chloride 0.9% 500 ML IVPB SCH (10:15)
[2017-08-13] MEDS ORDERED: Insulin Glargine 25 UNITS in Pre-Filled Syringe 1 EACH SC SCH (10:15)
[2017-08-13] MEDS ORDERED: Potassium Chloride 20 MEQ TAB PO SCH (10:15)
[2017-08-13] MEDS: Lorazepam 1 MG TAB PO PRN ×2 (11:09→19:37)
[2017-08-13] MEDS: HumaLOG 300 UNITS/3 ML VIAL SC SCH ×2 (11:56→17:40)
--- NOTE | 2017-08-13 12:28 | PDOC.PN ---
- Subjective Encounter Start Date: 08/13/17 Encounter Start Time: 10:00 Subjective: f/y for DKA on insulin gtt. Overall feeling better. No N/V. Tolerating -: po intake. - Objective Resuscitation Status: Resuscitation Status FULL:Full Resuscitation MAR Reviewed: Yes Vital Signs & Weight: Vital Signs (12 hours) Temp Pulse Resp Pulse Ox 08/13/17 12:00 99.0 F 08/13/17 08:00 98.4 F 53 L 16 96 08/13/17 07:00 98.4 F 08/13/17 03:00 98.3 F Weight Admit Weight 162 lb 7.691 oz Weight 162 lb 7.691 oz Most Recent Monitor Data Heart Rate from ECG 78 NIBP 112/68 NIBP BP-Mean 80 Respiration from ECG 15 SpO2 97 I&O: 08/12/17 08/13/17 08/14/17 06:59 06:59 06:59 Intake Total 2849 5524.8 1429 Output Total 2750 450 Balance 2849 2774.8 979 Result Diagrams: 08/13/17 04:33 08/13/17 04:33 Additional Labs: Accuchecks 08/13/17 08/13/17 08/13/17 11:57 10:17 09:12 POC Glucose 141 H 127 H 117 H 08/13/17 08/13/17 08/13/17 08:13 07:01 05:59 POC Glucose 163 H 220 H 246 H 08/13/17 08/13/17 08/13/17 05:14 04:07 03:13 POC Glucose 255 H 196 H 178 H 08/13/17 08/13/17 08/12/17 02:09 01:14 23:55 POC Glucose 118 H 120 H 134 H 08/12/17 08/12/17 08/12/17 22:59 22:24 20:59 POC Glucose 171 H 174 H 223 H 08/12/17 08/12/17 08/12/17 20:04 19:02 18:07 POC Glucose 236 H 200 H 164 H 08/12/17 08/12/17 08/12/17 17:21 16:17 15:03 POC Glucose 147 H 136 H 166 H 08/12/17 08/12/17 08/12/17 14:16 13:23 12:09 POC Glucose 186 H 213 H 211 H 07/03/18 11:30 POC Glucose 273 H Laboratory Tests 08/11/17 08/11/17 08/11/17 16:49 16:49 22:13 WBC 27.9 H Neutrophils % (Manual) 83 H Hemoglobin A1c B-Hydroxybutyrate 8.58 H 1.68 H 08/12/17 08/12/17 08/12/17 02:25 02:25 02:37 WBC Neutrophils % (Manual) 71 Hemoglobin A1c 10.6 H B-Hydroxybutyrate 0.75 H EKG Reviewed by me: Yes (Tele - SR) Phys Exam - Physical Examination Constitutional: NAD HEENT: PERRLA, sclera anicteric, oral pharynx no lesions Neck: no nodes, no JVD, supple, full ROM Respiratory: no wheezing, no rales, no rhonchi, clear to auscultation bilateral S1, S2 Cardiovascular: RRR, no significant murmur, no rub, gallop Gastrointestinal: soft, non-tender, no distention, positive bowel sounds Musculoskeletal: no edema, pulses present Neurological: non-focal, normal sensation, moves all 4 limbs Psychiatric: normal affect, A&O x 3 Skin: no rash, normal turgor, cap refill <2 seconds Dx/Plan (1) DKA (diabetic ketoacidosis) Code(s): E13.10 - OTH DIABETES MELLITUS WITH KETOACIDOSIS WITHOUT COMA Status : Acute Qualifiers: Diabetes mellitus type: type 1 Comment: Resolving, Start Lantus 25u sc qam, ISS, ADA diet, d/c insulin gtt (2) Severe dehydration Code(s): E86.0 - DEHYDRATION Status: Acute Comment: Resolving, encourage routine po free H2O intake (3) Nausea & vomiting Code(s): R11.2 - NAUSEA WITH VOMITING, UNSPECIFIED Status: Acute Qualifiers: Vomiting type: unspecified Comment: Resolved, Zofran prn (4) ANANT (acute kidney injury) Code(s): N17.9 - ACUTE KIDNEY FAILURE, UNSPECIFIED Status: Acute Comment: Resolved, avoid nephrotoxic meds and limit contrast exposure (5) DM gastroparesis Code(s): E11.43 - TYPE 2 DIABETES W DIABETIC AUTONOMIC (POLY)NEUROPATHY; K31.84 - GASTROPARESIS Status: Chronic Comment: Reglan 10mg ACHS - Plan plan discussed w/ family, social work associate, out of bed/ambulate, DVT proph w/SCDs Stable overall -: D/C Insulin gtt -: Start Lantus 25u sc daily -: ISS, ADA diet -: Ativan 1mg po q8h prn * Diabetic education * AM lab: BMP * Transfer to medical floor, likely home 08/14/17
[2017-08-13] MEDS: Metoclopramide 10 MG/10 ML UDCUP PO SCH ×2 (17:38→20:54)
[2017-08-13] MEDS: HumaLOG 300 UNITS/3 ML VIAL SC PRN (17:48)
[2017-08-14] MEDS: HumaLOG 300 UNITS/3 ML VIAL SC PRN ×2 (05:44→11:51)
[2017-08-14 05:56] VITALS: BP 122/72
[2017-08-14 06:04] LABS: Anion Gap 11 mmol/L (10-20); BUN (Urea Nitrogen) 12 mg/dL (8.9-20.6); Calc. Creatinine Clearance 125 mL/min (70-130); Calcium 9.4 mg/dL (7.8-10.44); Carbon Dioxide 26 mmol/L (22-29); Chloride 102 mmol/L (98-107); Estimated GFR-MDRD Greater than 90; Glucose 444 mg/dL (70-105); Potassium 4.8 mmol/L (3.5-5.1); Sodium 134 mmol/L (136-145)
[2017-08-14] MEDS: HumaLOG 300 UNITS/3 ML VIAL SC SCH ×2 (08:45→11:43)
[2017-08-14] MEDS: Metoclopramide 10 MG/10 ML UDCUP PO SCH ×2 (08:45→11:43)
[2017-08-14] MEDS: Lorazepam 1 MG TAB PO PRN (08:45)
[2017-08-14] MEDS ORDERED: Insulin Glargine 25 UNITS in Pre-Filled Syringe 1 EACH SC SCH (09:00)
--- NOTE | 2017-08-14 12:21 | PRG ---
DATE OF SERVICE: 08/14/2017 SERVICE: Pulmonary Medicine. INTERVAL HISTORY: The patient is doing fine from a respiratory standpoint. He denies any current ch est pain, nausea, vomiting, fevers or chills. His belly pain is better. He is tolerating p.o. He i s looking forward to going home today. We are working on finding him some resources so that he can h ave access to insulin without missing out on any longer. PHYSICAL EXAMINATION: VITAL SIGNS: Afebrile, pulse 61, blood pressure 122/72, respirations 16, saturation 99% on room air. GENERAL: The patient is awake, alert, no apparent distress. LUNGS: Excellent air entry with no prolonged expiratory phase, wheezing, rhonchi or crackles. HEART: Normal rate and regular. ABDOMEN: Soft, nontender, nondistended. Bowel sounds are positive. MUSCULOSKELETAL: No cyanosis or clubbing. There is no pitting in the bilateral lower extremities. NEUROLOGIC: Grossly nonfocal. LABORATORY DATA: WBC 9.1, hemoglobin 12.8, platelets 129,000 and rebounding very nicely. Basic meta bolic profile is essentially unremarkable with normal anion gap. Bicarbonate is normal. Blood sugar s ranged from 199-348. ASSESSMENT: 1. Diabetic ketoacidosis. 2. Type 1 diabetes mellitus. 3. Medical noncompliance. DISCUSSION AND PLAN: The patient is doing fine from a respiratory and cardiovascular standpoint. At this point, he has no further requirements for inpatient Pulmonary or Critical Care opinion. Jovanni mccarthy work with case management to make certain the patient has access to these medications. Magy y, I have counseled the patient to setup a followup appointment with an established care with a prima care physician so that they can coordinate his insulin moving forward. If his condition deteriora david, please give me a phone call.
--- NOTE | 2017-08-14 12:40 | DIS ---
DATE OF ADMISSION: 08/11/2017 DATE OF DISCHARGE: 08/14/2017 DISCHARGE DIAGNOSES: 1. Diabetic ketoacidosis, resolving. 2. Severe dehydration secondary to #1, resolved. 3. Nausea and vomiting secondary to #1, resolved. 4. Acute kidney injury, resolved. 5. Diabetic gastroparesis. CONSULTATIONS: Dr. Nelson and Dr. Isabel with Pulmonology and Critical Care service. PERTINENT LABORATORY DATA AND X-RAY FINDINGS: Creatinine ranged between 0.92-1.78, estimated GFR ran ged between 46 to greater than 90. Hemoglobin A1c 10.6, phosphorus 3.9, magnesium 2.2, lipase 4. CB C showed white blood cell count ranging between 9.1-27.9, hemoglobin ranged between 12.8-14.8. Venou s blood gas at the time of admission on 08/11/2017 showed a pH of 7.28. Beta hydroxybutyrate level r anged between 0.75-8.58. Portable chest x-ray dated 08/11/2017 showed no acute cardiopulmonary proce ss. HOSPITAL COURSE: Patient was admitted to the critical care unit after initially presenting with checo re nausea, vomiting, abdominal pain, and diabetic ketoacidosis. The patient was placed on DKA protoc ol and given aggressive IV fluid hydration. The patient was continued on insulin infusion for approx imately 48 hours, transitioning to subcutaneous insulin. The patient with protracted nausea and vomi ting improved with IV fluid hydration as well as antiemetics. The patient was transitioned to clear liquids and advanced to regular ADA diet, tolerating without difficulty. The patient's overall acido sis had corrected with insulin therapy and aggressive IV fluid hydration. The patient was evaluated by the case management service as well as dietary services due to history of recurrent admissions for DKA and noncompliance with medication regimen. The patient received extensive diabetic education an d resources for discharge planning and followup. The patient was transitioned to the medical floor a fter stabilization of initial DKA, tolerating regular oral intake, voiding appropriately, ambulating without assistance or difficulty with stable vital signs. I have examined the patient at the time of discharge and discussed followup instructions as well as reinforced diabetic education and resources available. The patient verbalized understanding and agreement and ready for discharge on 08/14/2017 . DISCHARGE MEDICATIONS: 1. Novolin 70/30 25 units subcutaneously b.i.d. 2. Reglan 10 mg p.o. q.i.d. 3. Cymbalta 30 mg p.o. daily. FOLLOWUP: Patient to follow up with [facility] in [place], [place]. CONDITION ON DISCHARGE: Stable. ACTIVITY: Ad hiram. DIET: ADA. CODE STATUS: FULL. DISPOSITION: Home 08/14/2017. Total time in preparing and coordinating discharge is 35 minutes.
[2017-08-14 14:17] VITALS: TEMP 99
== END 2017-08-14 14:05 | disposition home or self-care (01) | DRG 638 ==
LOC: ERS 16:07 → ERHOLD 18:51 → CCU 20:42 → ONC 08-13 14:50
PROVIDERS: ADMIT Family Medicine; ATTEND Family Medicine
DX: E10.10 Type 1 diabetes mellitus with ketoacidosis without coma (principal); N17.9 Acute kidney failure, unspecified; K21.9 Gastro-esophageal reflux disease without esophagitis; K31.84 Gastroparesis; E10.43 Type 1 diabetes mellitus with diabetic autonomic (poly)neuropathy; E86.0 Dehydration; F17.210 Nicotine dependence, cigarettes, uncomplicated; Z79.4 Long term (current) use of insulin; Z91.14 Patient's other noncompliance with medication regimen
CPT/HCPCS: 36415; 36416; 71045; 80048; 80053; 81003; 82010; 82330; 82803; 83036; 83690; 83735; 84100; 85007; 85025; 85027; 93005; 96360; 96361; 96365; 96366; 96375; A4216; J1815; J2060; J2270; J2765; J3475; J7050; Q0162; S0028

== ENCOUNTER 2017-10-18 18:34 | Inpatient (IN) | payer SELFPAY ==
[2017-10-18 19:13] LABS: Hemoglobin 16.7 g/dL (14.0-18.0); Mean Corpuscular HGB CONC 34.4 g/dL (32.0-36.0); Mean Corpuscular Hemoglobin 31.1 pg (27.0-31.0); Mean Corpuscular Volume 90.5 fL (78.0-98.0); Mean Platelet Volume 8.9 fL (7.4-10.4); Platelet Count 228 thou/uL (130-400); RBC Distribution Width 12.7 % (11.5-14.5); Red Blood Cell (RBC) Count 5.38 mill/uL (4.70-6.10); White Blood Cell (WBC) Count 20.2 thou/uL (4.8-10.8)
[2017-10-18 19:27] LABS: Band 2 % (5-11); Lymphocytes 5 % (21-51); MDiff Complete? YES; Monocytes 6 % (0-10); Neutrophil 86 % (42-75); PLT Morphology Comment Appears Adequate; RBC Morphology Normal; Reactive Lymphocytes 1 % (0-10)
[2017-10-18 19:33] LABS: ALT (SGPT) 23 U/L (8-55); AST (SGOT) 20 U/L (5-34); Albumin 5.4 g/dL (3.5-5.0); Alkaline Phosphatase 78 U/L (40-150); Anion Gap 34 mmol/L (10-20); BUN (Urea Nitrogen) 22 mg/dL (8.9-20.6); Bilirubin, Total 1.3 mg/dL (0.2-1.2); Calc. Creatinine Clearance 0 mL/min (70-130); Carbon Dioxide 12 mmol/L (22-29); Chloride 96 mmol/L (98-107); Estimated GFR-MDRD 41; Globulin 3.7 g/dL (2.4-3.5); Potassium 5.3 mmol/L (3.5-5.1); Protein, Total 9.1 g/dL (6.0-8.3); Sodium 137 mmol/L (136-145)
[2017-10-18] MEDS ORDERED: Ondansetron HCl/PF 4 MG/2 ML Vial ONE (19:37)
[2017-10-18 19:38] LABS: Magnesium 2.4 mg/dL (1.6-2.6); Phosphorus 5.2 mg/dL (2.3-4.7)
[2017-10-18 19:39] LABS: Glucose 584 mg/dL (70-105)
[2017-10-18] MEDS ORDERED: Insulin Regular 300 UNITS/3 ML VIAL ONE (19:53)
[2017-10-18] MEDS ORDERED: Pantoprazole 40 MG VIAL ONE (19:53)
--- NOTE | 2017-10-18 19:57 | RAD ---
CHEST ONE VIEW: 10/18/17 HISTORY: Ketoacidosis. Dyspnea. COMPARISON: 08/11/17. FINDINGS: The cardiac silhouette is magnified by projection. Pulmonary vasculature is unremarkable. mediastinum is midline. There is no confluent air space consolidation or evidence of pneumothorax. IMPRESSION: No active cardiopulmonary abnormalities are demonstrated. POS: [facility]
[2017-10-18] MEDS ORDERED: Glycopyrrolate 0.2 MG/ML 5 ML SYRINGE SLOW IVP SCH (20:00)
[2017-10-18] MEDS ORDERED: Insulin Regular 100 units/100 ml in NS IVPB SCH (20:00)
[2017-10-18 20:10] LABS: Base Excess-Venous -10.8 mmol/L (0 (+/- 2.5)); Bicarbonate (HCO3v) 13.9 mmol/L (1.0-85.0); CO2 Tension (PvCO2) 29.2 mmHg (41.0-51.0); Calcium, Ionized 1.12 mmol/L (1.12-1.32); Hemoglobin - Calc 20.5 g/dL (12.0-18.0); O2 Tension (PvO2) 66.6 mmHg (35.0-45.0); Potassium 5.1 mmol/L (3.4-4.7); T. Carbon Dioxide 14.8 mmol/L (1.0-85.0); pH (Venous) 7.285 (7.35-7.45); vO2 Saturation-calc 90.9 % (94-98)
[2017-10-18 21:23] LABS: Bilirubin Negative (Negative); Blood, Urine Negative (Negative); Clarity CLEAR (Clear); Glucose, Urine (Dipstick) >=1000 mg/dL (Negative); Leukocyte Negative (Negative); Nitrite Negative (Negative); Protein, Urine (Dipstick) Negative (Neg-Trace); Specific Gravity, Urine 1.034 (1.002-1.036); Urobilinogen 0.2 mg/dL (0.2-1.0)
[2017-10-18] MEDS ORDERED: Ondansetron HCl/PF 4 MG/2 ML Vial IVP PRN (22:06)
[2017-10-18] MEDS ORDERED: Acetaminophen 325 MG TAB PO PRN (22:06)
[2017-10-18] MEDS ORDERED: Ondansetron ODT 4 MG TAB SL PRN (22:06)
[2017-10-18] MEDS ORDERED: Dextrose 5% in Water 1,000 ML IV PRN (22:08)
[2017-10-18] MEDS ORDERED: Sodium Chloride 0.9% 1,000 ML IV PRN ×3 (22:08)
[2017-10-18] MEDS ORDERED: NS 0.9% w/ 20 MEQ KCL 1,000 ML/1,000 ML BAG IV PRN ×2 (22:08)
[2017-10-18] MEDS ORDERED: Dextrose 5 %-0.45 % NaCl 1,000 ML IV PRN (22:08)
[2017-10-18] MEDS ORDERED: D5 1/2 NS w/20 mEq KCL 1,000 ML IV PRN (22:08)
[2017-10-18] MEDS ORDERED: Dextrose 50% Abboject 50 ML SYRINGE SLOW IVP PRN (22:09)
[2017-10-18] MEDS: Sodium Chloride 0.9% 1,000 ML IV PRN (22:18)
[2017-10-18 22:21] VITALS: BMI 20.6
[2017-10-18] MEDS ORDERED: Potassium Chloride 40 MEQ in Sodium Chloride 0.9% 250 ML 250 ML IVPB PRN (22:30)
[2017-10-18] MEDS ORDERED: CCU ELECTROLYTE REPLACEMENT PROTOCOL FS PRN (22:30)
[2017-10-18] MEDS ORDERED: Magnesium 2 GM/NS 0.9% 100 ML 2 GM in Premix Bag 1 BAG IVPB PRN (22:30)
[2017-10-18] MEDS ORDERED: Potassium Phosphate 12 MMOL in Sodium Chloride 0.9% 250 ML 250 ML IV PRN (22:30)
[2017-10-18] MEDS ORDERED: Potassium Chloride 20 MEQ TAB PO PRN (22:30)
[2017-10-18] MEDS ORDERED: Potassium Chloride 40 MEQ in Premix Bag 1 BAG IVPB PRN (22:30)
[2017-10-18] MEDS ORDERED: Potassium Phosphate 9 MMOL in Sodium Chloride 0.9% 100 ML IVPB PRN (22:30)
[2017-10-18] MEDS ORDERED: Magnesium Oxide 400 MG TAB PO PRN ×2 (22:30)
[2017-10-18] MEDS ORDERED: Potassium Phosphate 15 MMOL in Sodium Chloride 0.9% 250 ML 250 ML IV PRN (22:30)
[2017-10-18] MEDS ORDERED: Calcium Carbonate 500 MG ChewTAB PO PRN (22:31)
[2017-10-18] MEDS ORDERED: Metoclopramide HCl 10 MG/2 ML VIAL IVP PRN (22:32)
[2017-10-18] MEDS: Lactated Ringer's 1,000 ML IV SCH (23:25)
[2017-10-18] MEDS ORDERED: Bisacodyl 5 MG TAB PO PRN (23:50)
[2017-10-18] MEDS ORDERED: CCU Electrolyte Replacement 1 EACH FS ONE (23:57)
[2017-10-19] MEDS: Sodium Chloride 0.9% 1,000 ML IV PRN (00:20)
[2017-10-19 01:05] LABS: Anion Gap 16 mmol/L (10-20); BUN (Urea Nitrogen) 19 mg/dL (8.9-20.6); Calc. Creatinine Clearance 86 mL/min (70-130); Calcium 9.6 mg/dL (7.8-10.44); Carbon Dioxide 21 mmol/L (22-29); Chloride 111 mmol/L (98-107); Estimated GFR-MDRD 65; Glucose 190 mg/dL (70-105); Potassium 3.9 mmol/L (3.5-5.1); Sodium 144 mmol/L (136-145)
--- NOTE | 2017-10-19 02:10 | HP ---
CHIEF COMPLAINT: Generalized weakness, nausea, and vomiting. HISTORY OF PRESENT ILLNESS: This is a 27-year-old male with past medical history of diabetes mellitus type 1, atrial fibrillation, gastroparesis, presenting to the hospital with chief complains of generalized weakness, which started on . Patient stated that he took his case to go to school after it was coming back, he started feeling very sick. Patient stated that he was drinking coffee and after sipping on the coffee, he vomited x3 and since then he has been vomiting ever since. The patient states that he has had similar episodes in the past. Patient really think that the coffee must have __ ___ into the DKA and causes stomach upset as well. Patient at this point admits to having some headaches, generalized weakness, chills, cold sweats. Patient states that I am using a heating pad, helps him with these pains. REVIEW OF SYSTEMS: Positive for headaches, generalized weakness, chills, cold sweats, and otherwise was documented in the HPI. All other systems were reviewed and are negative. PAST MEDICAL HISTORY: Diabetes mellitus type 1, gastroparesis, atrial fibrillation. PAST SURGICAL HISTORY: Patient has no surgical history. PSYCHIATRIC HISTORY: No previous psychiatric history. FAMILY HISTORY: Mom and dad of patient had diabetes. SOCIAL HISTORY: Patient currently uses tobacco, smokes cigarettes daily. Patient has been smoking for over 50 years. Patient smokes 1 pack per day and patient also occasionally uses marijuana. Patient is an occasional alcohol drinker, does not use any illicit drugs except for marijuana. ALLERGIES: No known drug allergies. CURRENT MEDICATIONS: Patient uses Novolin 150 unit/1.5 mL, patient used 20 units subcutaneously twice a daily. PHYSICAL EXAMINATION: VITAL SIGNS: Blood pressure is 135/83, pulse is 128, respiratory rate of 24, temperature is 99.4, O2 sat is 96. GENERAL: Patient is lying in bed, patient appears very somnolent and weak; however, patient is not in any acute distress. Patient is speaking full sentences. HEENT: Normocephalic, atraumatic. Pupils are equal, round, and reactive to light. Extraocular movements intact. Patient's mucous membranes are dry. NECK: No JVD. Trachea is midline. No cervical lymphadenopathy is appreciated. RESPIRATORY: Clear to auscultation bilaterally. No wheezing, no rales, no rhonchi is appreciated. CARDIAC: Sinus tachycardia. ABDOMEN: No tenderness noted. Positive bowel sounds, nondistended. EXTREMITIES: Upper extremity and lower extremities are within normal limits. NEUROLOGIC: Cranial nerves II-XII grossly intact. No focal neurologic deficits noted. SKIN: Warm, dry, and intact. PSYCHIATRIC: Alert and oriented x3, normal affect. ED COURSE: Patient received normal saline, Novolin R, Robinul, Protonix IV, Zofran, Ofirmev in the ED. Chest x-ray showed no active cardiopulmonary process. LABORATORY DATA: WBC is 22.2, hemoglobin is 16.7, hematocrit is 48.7, MCV of 90.5, RDW 12.7, platelet count is 228. pH is 7.2, pCO2 of 29.2, pO2 is 66.6. Electrolytes: Sodium 137, potassium 5.3, chloride 96, carbon dioxide is 12, anion gap of 34, BUN is 22, creatinine is 1.93, glucose is 584, lactic acid of 2.9, calcium 11.0. Total bilirubin is 1.3, magnesium 2.4, phosphorus is 5.2. Urinalysis significant for glucose greater than 1000, urine ketones with 80, beta hydroxybutyrate is 8.55. ASSESSMENT AND PLAN: This is a 27-year-old male with past medical history of diabetes mellitus type 1, being admitted for diabetic ketoacidosis. Patient meets the criteria for diabetic ketoacidosis. At this point, we have insulin sliding scale, we have fluids. We are going to admit the patient to IMCU. We will continue the patient on the insulin protocol. We will replete sodium electrolytes as needed. History of gastroparesis. At this point, patient is not having any vomiting at this time. We will continue the patient on his home dose of metoclopramide and we will continue to watch patient very closely. DISPOSITION: Patient needs to stay in the ICU be managed and then patient needs case management team help to set up process for him to get insurance. Patient also will need insulin pump. AISHA
[2017-10-19] MEDS: Lactated Ringer's 1,000 ML IV SCH (05:36)
[2017-10-19 06:04] LABS: Anion Gap 10 mmol/L (10-20); BUN (Urea Nitrogen) 16 mg/dL (8.9-20.6); Calc. Creatinine Clearance 105 mL/min (70-130); Calcium 8.6 mg/dL (7.8-10.44); Carbon Dioxide 22 mmol/L (22-29); Chloride 109 mmol/L (98-107); Estimated GFR-MDRD 82; Glucose 194 mg/dL (70-105); Potassium 3.9 mmol/L (3.5-5.1); Sodium 137 mmol/L (136-145)
[2017-10-19 06:14] LABS: #Lymphocytes 2.6 thou/uL (1.20-3.40); #Monocytes 1.8 thou/uL (0.11-0.59); #Neutrophils 13.1 thou/uL (1.40-6.50); %Basophils 0.2 % (0.0-1.0); %Eosinophils 0.1 % (0.0-10.0); %Lymphocytes 14.8 % (21.0-51.0); %Monocytes 10.3 % (0.0-10.0); %Neutrophils 74.6 % (42.0-75.0); Hemoglobin 12.6 g/dL (14.0-18.0); Mean Corpuscular HGB CONC 33.9 g/dL (32.0-36.0); Mean Corpuscular Hemoglobin 30.5 pg (27.0-31.0); Mean Corpuscular Volume 89.8 fL (78.0-98.0); Mean Platelet Volume 8.2 fL (7.4-10.4); Platelet Count 178 thou/uL (130-400); RBC Distribution Width 12.2 % (11.5-14.5); Red Blood Cell (RBC) Count 4.14 mill/uL (4.70-6.10); White Blood Cell (WBC) Count 17.6 thou/uL (4.8-10.8)
[2017-10-19] MEDS ORDERED: Dextrose 50% Abboject 50 ML SYRINGE SLOW IVP PRN (08:18)
[2017-10-19] MEDS ORDERED: Dextrose 5% in Water 1,000 ML IV PRN (08:18)
[2017-10-19] MEDS ORDERED: HumaLOG 300 UNITS/3 ML VIAL SC PRN (08:18)
[2017-10-19] MEDS ORDERED: Calcium Carbonate 500 MG ChewTAB PO PRN (08:19)
[2017-10-19] MEDS ORDERED: Insulin NPH/Reg Insulin Hm 300 UNITS/3 ML VIAL SC SCH (09:00)
[2017-10-19] MEDS: Metoclopramide HCl 10 MG TAB PO SCH ×4 (09:37→20:12)
[2017-10-19] MEDS: Famotidine/PF 20 mg/2ml Vial SLOW IVP SCH ×2 (09:37→20:12)
[2017-10-19] MEDS: Acetaminophen 325 MG TAB PO PRN ×2 (09:37→16:47)
--- NOTE | 2017-10-19 12:37 | PDOC.PN ---
- Subjective Encounter Start Date: 10/19/17 Encounter Start Time: 12:35 Subjective: c/o epigastric pain,but better than yesterday.no vomiting - Objective Resuscitation Status: Resuscitation Status FULL:Full Resuscitation MAR Reviewed: Yes Vital Signs & Weight: Vital Signs (12 hours) Temp Pulse Resp BP Pulse Ox 10/19/17 10:53 98.5 F 67 15 115/71 97 10/19/17 08:45 98.5 F 67 15 97 10/19/17 08:14 96 10/19/17 07:42 98.9 F 93 16 115/68 97 10/19/17 04:00 99.2 F 81 18 109/63 96 Weight Weight 160 lb 7.944 oz I&O: 10/18/17 10/19/17 10/20/17 06:59 06:59 06:59 Intake Total 3886 Output Total 800 Balance 3086 Result Diagrams: 10/19/17 05:40 10/19/17 05:40 Additional Labs: Accuchecks 10/19/17 10/19/17 10/19/17 11:09 08:57 08:02 POC Glucose 159 H 218 H 202 H 10/19/17 10/19/17 10/19/17 07:15 06:09 04:09 POC Glucose 207 H 208 H 153 H 10/19/17 10/19/17 10/19/17 03:03 02:07 01:08 POC Glucose 123 H 121 H 144 H 10/18/17 10/18/17 10/18/17 23:59 23:03 22:02 POC Glucose 199 H 261 H 278 H 10/18/17 10/18/17 20:57 18:52 POC Glucose 403 H 524 H Phys Exam - Physical Examination Constitutional: NAD HEENT: PERRLA, moist MMs, sclera anicteric, oral pharynx no lesions Neck: no nodes, no JVD, supple, full ROM Respiratory: no wheezing, no rales, no rhonchi, clear to auscultation bilateral Cardiovascular: RRR, no significant murmur, no rub Gastrointestinal: soft, no distention, positive bowel sounds Epigastric tenderness Musculoskeletal: no edema, pulses present Neurological: non-focal, normal sensation, moves all 4 limbs Psychiatric: normal affect, A&O x 3 Skin: no rash Dx/Plan (1) DKA, type 1 Code(s): E10.10 - TYPE 1 DIABETES MELLITUS WITH KETOACIDOSIS WITHOUT COMA Status: Acute Qualifiers: Diabetes mellitus complication detail: without coma Qualified Code(s): E10.10 - Type 1 diabetes mellitus with ketoacidosis without coma Comment: Improved.AG closed (2) Epigastric abdominal pain Code(s): R10.13 - EPIGASTRIC PAIN Status: Acute (3) Nausea & vomiting Code(s): R11.2 - NAUSEA WITH VOMITING, UNSPECIFIED Status: Acute Comment: Resolved, Zofran prn (4) DM gastroparesis Code(s): E11.43 - TYPE 2 DIABETES W DIABETIC AUTONOMIC (POLY)NEUROPATHY; K31.84 - GASTROPARESIS Status: Chronic Comment: Reglan 10mg ACHS - Plan out of bed/ambulate, DVT proph w/SCDs start ISS and 70/30.stop insulin drip 1 hr after SubQ insulin -: advanced diet as tolerated. -: supportiv ecare -: OK to tranbsfer to medical.Hd stable -: am labs * . Review of Systems - Review of Systems Constitutional: weakness, malaise. negative: fever, chills, sweats, other Eyes: negative: Pain, Vision Change, Conjunctivae Inflammation, Eyelid Inflammation, Redness, Other ENT: negative: Ear Pain, Ear Discharge, Nose Pain, Nose Discharge, Nose Congestion, Mouth Pain, Mouth Swelling, Throat Pain, Throat Swelling, Other Respiratory: negative: Cough, Dry, Shortness of Breath, Hemoptysis, SOB with Excertion, Pleuritic Pain, Sputum, Wheezing Cardiovascular: negative: chest pain, palpitations, orthopnea, paroxysmal nocturnal dyspnea, edema, light headedness, other Gastrointestinal: Nausea, Abdominal Pain. negative: Vomiting, Diarrhea, Constipation, Melena, Hematochezia, Other Genitourinary: negative: Dysuria, Frequency, Incontinence, Hematuria, Retention , Other Musculoskeletal: negative: Neck Pain, Shoulder Pain, Arm Pain, Back Pain, Hand Pain, Leg Pain, Foot Pain, Other Skin: negative: Rash, Lesions, Angelo, Bruising, Other Neurological: negative: Weakness, Numbness, Incoordination, Change in Speech, Confusion, Seizures, Other - Medications/Allergies Allergies/Adverse Reactions: Allergies Allergy/AdvReac Type Severity Reaction Status Date / Time No Known Allergies Allergy Verified 10/18/17 22:23 Medications: Current Medications Acetaminophen (Tylenol) 650 mg PO Q6H PRN PRN Reason: Pain Last Admin: 10/19/17 09:37 Dose: 650 mg Bisacodyl (Dulcolax) 10 mg PO DAILYPRN PRN PRN Reason: Constipation Calcium Carbonate (Tums) 1,000 mg PO QID PRN PRN Reason: heartburn Dextrose/Water (Dextrose 50%) 25 gm SLOW IVP PRN PRN PRN Reason: Hypoglycemia Famotidine (Pepcid) 20 mg SLOW IVP Q12HR [facility] Last Admin: 10/19/17 09:37 Dose: 20 mg Glucagon (Glucagon) 1 mg IM PRN PRN PRN Reason: Hypoglycemia Dextrose/Water (D5w) 1,000 mls @ 0 mls/hr IV .Q0M PRN PRN Reason: Hypoglycemia Insulin Human Isoph/Insulin Regular (Humulin 70/30) 20 units SC BID [facility] Last Admin: 10/19/17 09:37 Dose: 20 unit Insulin Human Lispro (Humalog) 0 units SC .MODERATE SLIDING SC PRN PRN Reason: Moderate Correctional Scale Insulin Human Lispro (Humalog) 0 units SC .BEDTIME SLIDING SC PRN PRN Reason: Bedtime Correctional Scale Metoclopramide HCl (Reglan) 10 mg PO QID [facility] Last Admin: 10/19/17 09:37 Dose: 10 mg Sodium Chloride (Flush - Normal Saline) 10 ml IVF Q12HR [facility] Last Admin: 10/19/17 09:39 Dose: 10 ml Sodium Chloride (Flush - Normal Saline) 10 ml IVF PRN PRN PRN Reason: Saline Flush
[2017-10-19] MEDS: Insulin NPH/Reg Insulin Hm 300 UNITS/3 ML VIAL SC SCH (18:17)
[2017-10-20 05:28] LABS: Anion Gap 13 mmol/L (10-20); BUN (Urea Nitrogen) 15 mg/dL (8.9-20.6); Calc. Creatinine Clearance 109 mL/min (70-130); Calcium 8.9 mg/dL (7.8-10.44); Carbon Dioxide 23 mmol/L (22-29); Chloride 101 mmol/L (98-107); Estimated GFR-MDRD 85; Glucose 363 mg/dL (70-105); Potassium 4.1 mmol/L (3.5-5.1); Sodium 133 mmol/L (136-145)
[2017-10-20] MEDS: HumaLOG 300 UNITS/3 ML VIAL SC PRN ×2 (05:40→11:58)
[2017-10-20 07:11] VITALS: BP 129/72; TEMP 98.3
[2017-10-20] MEDS: Metoclopramide HCl 10 MG TAB PO SCH ×2 (08:19→12:01)
[2017-10-20] MEDS: Insulin NPH/Reg Insulin Hm 300 UNITS/3 ML VIAL SC SCH ×2 (08:20→12:00)
[2017-10-20] MEDS: Famotidine/PF 20 mg/2ml Vial SLOW IVP SCH (08:20)
--- NOTE | 2017-10-21 01:01 | DIS ---
DATE OF ADMISSION: 10/19/2017 DATE OF DISCHARGE: 10/20/2017 CONDITION AT THE TIME OF DISCHARGE: Stable and improved. DISCHARGE DIAGNOSES: 1. Diabetic ketoacidosis. 2. Diabetes mellitus type 1. 3. Dehydration. 4. Metabolic acidosis due to diabetic ketoacidosis. 5. History of gastroparesis. 6. History of atrial fibrillation, unclear if this is sure or not. DISCHARGE MEDICATIONS: Novolin 70/30 20 units 3 times a day with meals, regular insulin sliding scal e and resume Reglan 10 mg p.o. q.i.d. p.r.n. PRIMARY CARE PHYSICIAN: None. The patient is encouraged to follow up with Dr. Hiro Torres he has seen in the outpatient setting pr eviously. HOSPITAL COURSE: Mr. Ross is a 27-year-old male with known history of diabetes mellitus type 2 wit h multiple hospitalizations for DKA, presented to emergency room once again with complaints of genera lized weakness, nausea and vomiting. He was found to be in DKA and was admitted to CCU with the DKA protocol. Please see admission history and physical for further detail. HOSPITAL COURSE: When I picked up the patient's care, he was already out of DKA, so he was transitio alejandrina to subcutaneous insulin. The drip was turned off an hour after that. He was continued on IV flu ids and diet was advanced. His sugars were rather uncontrolled in the hospital, but his insulin medi cations were adjusted. I did offer him to monitor his blood sugars for 1 more day, but he really wan fabiano to go home. I did emphasize that this dose of insulin would need to be titrated and he needs to follow up with a primary care physician. He was provided with all the scripts and the case managemen t was consulted with medication help. PHYSICAL EXAMINATION: GENERAL APPEARANCE: He was seen and examined prior to discharge and is in no acute distress. VITAL SIGNS: Stable, heart rate 59, blood pressure 129/72. CHEST: Clear to auscultation bilaterally. Rate and rhythm is regular. LABORATORY DATA: Serum chemistry shows sodium 133, otherwise unremarkable. Blood sugar 275. He is instructed once again to follow up with PCP.
== END 2017-10-20 15:22 | disposition home or self-care (01) | DRG 639 ==
LOC: ERS 18:34 → IMCU/EMU 20:15 → T4-A 10-19 17:10
PROVIDERS: ADMIT Internal Medicine; ATTEND Internal Medicine
DX: E10.10 Type 1 diabetes mellitus with ketoacidosis without coma (principal); I48.91 Unspecified atrial fibrillation; E86.0 Dehydration; E10.43 Type 1 diabetes mellitus with diabetic autonomic (poly)neuropathy; K31.84 Gastroparesis; F17.210 Nicotine dependence, cigarettes, uncomplicated; Z79.4 Long term (current) use of insulin
CPT/HCPCS: 36415; 36416; 71045; 80048; 80053; 81003; 82010; 82330; 82803; 83605; 83735; 84100; 85025; 93005; 94760; 96361; 96365; 96374; 96375; A4216; C9113; J0131; J1815; J2405; J2765; J7050; S0028

== ENCOUNTER 2017-12-04 20:01 | Emergency (ER) | payer SELFPAY ==
[2017-12-04] MEDS ORDERED: Ondansetron HCl/PF 4 MG/2 ML Vial ONE ×2 (20:20→22:05)
[2017-12-04 20:26] LABS: #Basophils 0.1 thou/uL (0.0-0.2); #Lymphocytes 1.7 thou/uL (1.20-3.40); #Monocytes 0.8 thou/uL (0.11-0.59); #Neutrophils 5.2 thou/uL (1.40-6.50); %Basophils 1.6 % (0.0-1.0); %Eosinophils 0.4 % (0.0-10.0); %Lymphocytes 21.5 % (21.0-51.0); %Monocytes 9.6 % (0.0-10.0); %Neutrophils 66.9 % (42.0-75.0); Hemoglobin 16.1 g/dL (14.0-18.0); Mean Corpuscular HGB CONC 32.6 g/dL (32.0-36.0); Mean Corpuscular Hemoglobin 28.3 pg (27.0-31.0); Mean Corpuscular Volume 86.8 fL (78.0-98.0); Platelet Count 163 thou/uL (130-400); RBC Distribution Width 11.6 % (11.5-14.5); Red Blood Cell (RBC) Count 5.68 mill/uL (4.70-6.10); White Blood Cell (WBC) Count 7.8 thou/uL (4.8-10.8)
[2017-12-04] MEDS ORDERED: Lorazepam 2 MG/ML VIAL ONE (20:30)
[2017-12-04 20:44] LABS: ALT (SGPT) 19 U/L (8-55); AST (SGOT) 13 U/L (5-34); Albumin 5.1 g/dL (3.5-5.0); Alkaline Phosphatase 64 U/L (40-150); Anion Gap 18 mmol/L (10-20); BUN (Urea Nitrogen) 15 mg/dL (8.9-20.6); Bilirubin, Total 0.9 mg/dL (0.2-1.2); CK (CPK) 52 U/L (30-200); Calc. Creatinine Clearance 0 mL/min (70-130); Calcium 10.6 mg/dL (7.8-10.44); Carbon Dioxide 25 mmol/L (22-29); Chloride 95 mmol/L (98-107); Estimated GFR-MDRD 60; Globulin 3.1 g/dL (2.4-3.5); Potassium 4.3 mmol/L (3.5-5.1); Protein, Total 8.2 g/dL (6.0-8.3); Sodium 134 mmol/L (136-145)
[2017-12-04 20:45] LABS: CKMB 0.6 ng/mL (0-6.6); Troponin I Less than 0.010 ng/mL (< 0.028)
[2017-12-04 20:47] LABS: Glucose 585 mg/dL (70-105)
--- NOTE | 2017-12-04 21:11 | RAD ---
PORTABLE AP CHEST X-RAY 12/04/17 HISTORY: Chest pain and back pain. COMPARISON: 10/18/17. FINDINGS: The most inferior aspect of each lateral costophrenic angle is excluded from view. The lungs are othe rwise clear. The cardiac silhouette and pulmonary vasculature are within normal limits. There has bee n no interval change from prior exam. IMPRESSION: No acute cardiopulmonary process. POS: [facility]
[2017-12-04] MEDS ORDERED: Insulin Regular 300 UNITS/3 ML VIAL ONE (21:19)
[2017-12-04 22:06] LABS: Amphetamine Not Detected (NotDetected); Barbiturates Screen Not Detected (NotDetected); Benzodiazepine Screen Not Detected (NotDetected); Cocaine Metabolite Screen Not Detected (NotDetected); Medtox Control Line Valid? VALID (VALID); Methadone Not Detected (NotDetected); Methamphetamine Not Detected (NotDetected); Opiate Screen Not Detected (NotDetected); Oxycodone Screen Not Detected (NotDetected); Phencyclidine (PCP) Not Detected (NotDetected); THC/Cannabinoid Screen Detected (NotDetected); Tricyclic Screen Not Detected (NotDetected)
== END 2017-12-04 23:15 | disposition home or self-care (01) ==
LOC: SCSER 20:01
DX: E10.65 Type 1 diabetes mellitus with hyperglycemia (principal); R07.9 Chest pain, unspecified; E86.0 Dehydration; E10.43 Type 1 diabetes mellitus with diabetic autonomic (poly)neuropathy; K31.84 Gastroparesis; E10.10 Type 1 diabetes mellitus with ketoacidosis without coma; F32.9 Major depressive disorder, single episode, unspecified; F17.210 Nicotine dependence, cigarettes, uncomplicated
CPT/HCPCS: 36416; 71045; 80053; 80306; 82010; 82550; 82553; 84484; 85025; 93005; 96361; 96374; 96375; 96376; 99406; J1815; J2060; J2405

== ENCOUNTER 2017-12-05 19:54 | Inpatient (IN) | payer SELFPAY ==
[2017-12-05] MEDS ORDERED: Insulin Regular 100 units/100 ml in NS IVPB SCH (20:30)
[2017-12-05 20:55] LABS: Hemoglobin 14.5 g/dL (14.0-18.0); Mean Corpuscular Hemoglobin 29.6 pg (27.0-31.0); Red Blood Cell (RBC) Count 4.89 mill/uL (4.70-6.10); White Blood Cell (WBC) Count 39.7 thou/uL (4.8-10.8)
[2017-12-05 21:01] LABS: Bilirubin Negative (Negative); Blood, Urine Trace (Negative); Clarity CLEAR (Clear); Glucose, Urine (Dipstick) >=1000 mg/dL (Negative); Leukocyte Negative (Negative); Nitrite Negative (Negative); Protein, Urine (Dipstick) Trace mg/dL (Neg-Trace); Specific Gravity, Urine 1.021 (1.002-1.036); Urobilinogen 0.2 mg/dL (0.2-1.0)
[2017-12-05 21:03] LABS: Bacteria/HPF None Seen HPF (None Seen); Hyaline Casts/LPF 0-3 HYALINE CAST LPF (0-3 Hyaline); Pathc Cast-AUWi Flag 0.14 (0-2.49); RBC/HPF None Seen HPF (0-3); Squamous Epithelial None Seen HPF (0-3); WBC/HPF 0-3 HPF (0-3)
--- NOTE | 2017-12-05 21:03 | RAD ---
CHEST ONE VIEW: 12/05/17 HISTORY: Chest pain. COMPARISON: 12/04/17. FINDINGS: The cardiac silhouette and pulmonary vasculature are unremarkable. Mediastinum is midline. No lobar c onsolidation or evidence of pneumothorax. hospital monitor leads overlie the chest. IMPRESSION: No active cardiopulmonary abnormalities are demonstrated. POS: [facility]
[2017-12-05 21:12] LABS: CKMB 1.6 ng/mL (0-6.6); Troponin I Less than 0.010 ng/mL (< 0.028)
[2017-12-05 21:16] LABS: ALT (SGPT) 20 U/L (8-55); AST (SGOT) 21 U/L (5-34); Albumin 4.6 g/dL (3.5-5.0); Alkaline Phosphatase 70 U/L (40-150); BUN (Urea Nitrogen) 37 mg/dL (8.9-20.6); Bilirubin, Total 0.2 mg/dL (0.2-1.2); Calc. Creatinine Clearance 0 mL/min (70-130); Carbon Dioxide Less than 8 mmol/L (22-29); Chloride 99 mmol/L (98-107); Estimated GFR-MDRD 28; Glucose 971 mg/dL (70-105); Lipase 11 U/L (8-78); Magnesium 2.5 mg/dL (1.6-2.6); Phosphorus 7.1 mg/dL (2.3-4.7); Potassium 7.6 mmol/L (3.5-5.1); Protein, Total 7.6 g/dL (6.0-8.3); Sodium 135 mmol/L (136-145)
[2017-12-05 21:17] LABS: Band 16 % (5-11); Lymphocytes 6 % (21-51); MDiff Complete? YES; Mean Corpuscular HGB CONC 28.6 g/dL (32.0-36.0); Mean Platelet Volume 9.8 fL (7.4-10.4); Metamyelocyte 3 % (0-0); Monocytes 6 % (0-10); Myelocyte 1 % (0-0); Neutrophil 68 % (42-75); PLT Morphology Comment Appears Adequate; Platelet Count 254 thou/uL (130-400); RBC Distribution Width 12.2 % (11.5-14.5)
[2017-12-05] MEDS ORDERED: Sodium Chloride 0.9% 100 ML ONE (21:48)
[2017-12-05] MEDS ORDERED: Sodium Bicarb 50 MEQ/50 ML Abboject 8.4% SYRINGE ONE (21:48)
[2017-12-05] MEDS ORDERED: Cefepime 2 GM VIAL ONE (21:48)
[2017-12-05] MEDS ORDERED: Sodium Bicarbonate 2.5 MEQ/5 ML VIAL ONE (21:48)
[2017-12-05] MEDS ORDERED: Calcium Gluc 4.6 MEQ/10 ML (100 MG/ML) ONE (21:50)
[2017-12-05] MEDS ORDERED: Acetaminophen 325 MG TAB PO PRN (23:07)
[2017-12-05 23:46] VITALS: BMI 20.8
[2017-12-06] MEDS ORDERED: Dextrose 5% in Water 1,000 ML IV PRN ×2 (00:36→11:15)
[2017-12-06] MEDS ORDERED: Dextrose 5 %-0.45 % NaCl 1,000 ML IV PRN ×2 (00:36→02:13)
[2017-12-06] MEDS ORDERED: D5 1/2 NS w/20 mEq KCL 1,000 ML IV PRN ×2 (00:36→02:13)
[2017-12-06] MEDS ORDERED: NS 0.9% w/ 20 MEQ KCL 1,000 ML/1,000 ML BAG IV PRN ×2 (00:36)
[2017-12-06] MEDS ORDERED: Sodium Chloride 0.9% 1,000 ML IV PRN ×8 (00:36→02:13)
[2017-12-06 00:37] LABS: Troponin I 0.062 ng/mL (< 0.028)
[2017-12-06] MEDS ORDERED: Dextrose 50% Abboject 50 ML SYRINGE SLOW IVP PRN (00:37)
[2017-12-06] MEDS ORDERED: Potassium Chloride 40 MEQ in Sodium Chloride 0.9% 250 ML 250 ML IVPB PRN (00:38)
[2017-12-06] MEDS ORDERED: CCU ELECTROLYTE REPLACEMENT PROTOCOL FS PRN (00:38)
[2017-12-06] MEDS ORDERED: Magnesium Oxide 400 MG TAB PO PRN ×2 (00:38)
[2017-12-06] MEDS ORDERED: Potassium Phosphate 12 MMOL in Sodium Chloride 0.9% 250 ML 250 ML IV PRN (00:38)
[2017-12-06] MEDS ORDERED: Potassium Phosphate 15 MMOL in Sodium Chloride 0.9% 250 ML 250 ML IV PRN (00:38)
[2017-12-06] MEDS ORDERED: Potassium Phosphate 9 MMOL in Sodium Chloride 0.9% 100 ML IVPB PRN (00:38)
[2017-12-06] MEDS ORDERED: Potassium Chloride 20 MEQ TAB PO PRN (00:38)
[2017-12-06] MEDS ORDERED: Magnesium 2 GM/NS 0.9% 100 ML 2 GM in Premix Bag 1 BAG IVPB PRN (00:38)
[2017-12-06] MEDS ORDERED: Potassium Chloride 40 MEQ in Premix Bag 1 BAG IVPB PRN (00:38)
[2017-12-06] MEDS ORDERED: ADD ELECTROLYTE REPLACEMENT SET TO PROFILE FS SCH (00:45)
[2017-12-06 01:05] LABS: Anion Gap 28 mmol/L (10-20); BUN (Urea Nitrogen) 38 mg/dL (8.9-20.6); Calc. Creatinine Clearance 49 mL/min (70-130); Calcium 9.5 mg/dL (7.8-10.44); Chloride 111 mmol/L (98-107); Estimated GFR-MDRD 34; Potassium 4.5 mmol/L (3.5-5.1); Sodium 142 mmol/L (136-145)
[2017-12-06 01:18] LABS: Carbon Dioxide 8 mmol/L (22-29); Glucose 728 mg/dL (70-105)
--- NOTE | 2017-12-06 01:58 | HP ---
DATE OF ADMISSION: 12/05/2017 PRIMARY CARE PHYSICIAN: Dr. Hiro Torres. CHIEF COMPLAINT: "Feeling like crap." HISTORY OF PRESENT ILLNESS: This is a 27-year-old male who presents to [facility] Emergency Department complaining of generalized weakness, nausea, and vomiting. Patient apparently began feeling ill in the last 2 to 3 days and was evaluated by the emergency department in the database designer hours on 12/05/2017, receiving IV fluids and insulin therapy, antiemetics and was released ho ok. Patient with significant history of diabetes mellitus type 1 with multiple admissions to [facility] for diabetic ketoacidosis, most recently in 10/2017. Patient states he has been taking his regular long-acting insulin at home and denies missing any doses. Patient denied any specific fe keyon, chills, or exposure history. Patient does admit to some pain in his back, abdomen, and both low er extremities. Patient denies any specific hemoptysis, change to his bowel habits, but has noted so me decreased urination. In the emergency room, patient was noted with diabetic ketoacidosis with a p H of 7.01. Tachycardic tachypneic with potassium level of 7.6. Patient was also noted with beta hyd roxybutyrate level of 11.26. Patient was initiated on DKA protocol including bolus of insulin in the emergency room and placed on insulin infusion. Patient was also noted with tachycardia with heart r ates in the 140s. Patient received oxygen therapy as well as aggressive IV fluid hydration. PAST MEDICAL HISTORY: 1. Recurrent admissions for diabetic ketoacidosis recently in 10/2017. 2. Diabetes mellitus, type 1. 3. Recurrent metabolic acidosis secondary to diabetic ketoacidosis. 4. History of gastroparesis. 5. Questionable history of atrial fibrillation. PAST SURGICAL HISTORY: Reviewed and negative. CURRENT MEDICATIONS: 1. Novolin 70/30 of 20 units subcutaneously t.i.d. with meals. 2. Regular insulin sliding scale. 3. Reglan 10 mg p.o. q.i.d. p.r.n. ALLERGIES: No known drug allergies. FAMILY HISTORY: Mother and father with diabetes mellitus. SOCIAL HISTORY: Patient currently uses tobacco, smoking up to a pack of cigarettes daily. Occasiona l marijuana use. Occasional alcohol use. REVIEW OF SYSTEMS: The following complete review of systems was otherwise negative, except as stated per HPI: Constitutional: Weight loss or gain, ability to conduct usual activities. Skin: Rash, i tching. Eyes: Double vision, pain. ENT/Mouth: Nose bleeding, neck stiffness, pain, tenderness. C ardiovascular: Palpitations, dyspnea on exertion, orthopnea. Respiratory: Shortness of breath, whe ezing, cough, hemoptysis, fever, or night sweats. Gastrointestinal: Poor appetite, abdominal pain, heartburn, nausea, vomiting, constipation, or diarrhea. Genitourinary: Urgency, frequency, dysuria, nocturia. Musculoskeletal: Pain, swelling. Neurologic/Psychiatric: Anxiety, depression. Allergy /Immunologic: Skin rash, bleeding tendency. PHYSICAL EXAMINATION: VITAL SIGNS: Currently, blood pressure 124/64, pulse 145, respiratory rate 32, temperature 97.8 degr ees Fahrenheit, O2 saturation 100% on room air. GENERAL APPEARANCE: This is a 27-year-old male, lethargic, answers questions when directly engaged in moderate distress. HEENT: Pupils are equal, round, and reactive to light and accommodation. Extraocular muscles are in tact. No scleral icterus, no conjunctival injection. Nares patent. OP is clear. Oral mucosa dry. NECK: Supple, no cervical adenopathy, no thyromegaly, no carotid bruits, no JVD appreciated. Cervic al spine with full active and passive range of motion. No meningeal signs noted. CHEST: Lungs are clear to auscultation bilaterally. Positive tachypnea. CARDIOVASCULAR: S1, S2 with tachycardia. No murmur, rub, or gallop noted. ABDOMEN: Flat with mild tenderness to palpation in the midepigastric region. No rebound or guarding noted. No palpable mass. Bowel sounds are positive. EXTREMITIES: Warm and dry with poor skin turgor. Pulses palpable distally at the dorsalis pedis, po sterior tibial, and popliteal arteries bilaterally. Capillary refill less than 2 seconds. SKIN: Shows multiple tattoos. NEUROLOGIC: Lethargic, but answers questions appropriately when directly engaged. Not observed ambu latory during this exam. Does follow commands. Cranial nerves II through XII are grossly intact. PERTINENT LABORATORY AND X-RAY FINDINGS: Sodium 135, potassium 7.6, chloride 99, CO2 of 8, BUN 37, c reatinine 2.72, estimated GFR of 28, glucose 971, calcium 9.0, phosphorus 7.1, magnesium 2.5. LFTs w ithin normal limits. Troponin I 0.010. Albumin 4.6, lipase 11. CBC showed a white blood cell count of 39.7, hemoglobin 14.5, hematocrit 51, platelet count 254 with 68% neutrophils. Urinalysis showed greater than 1000 glucose, positive ketones, trace blood. Beta hydroxybutyrate level 11.26. Portab le chest x-ray dated on 12/05/2017 showed no acute cardiopulmonary process by my review. EKG reviewe d on 12/05/2017 showed sinus tachycardia with heart rates in the 140s. Peak T waves noted. Right ax is deviation noted. ASSESSMENT AND PLAN: 1. Diabetic ketoacidosis. Patient will be admitted to the critical care unit. We will place on fabián betic ketoacidosis protocol. We will continue aggressive IV fluid hydration. Serial metabolic scree checo. No current evidence to suggest an obvious infectious process. 2. Hyperkalemia 3. Severe secondary to #1. We will continue insulin infusion. Serial potassium monitoring. Antici woodall correction with correction of acidosis. 4. Acute kidney injury. Suspect secondarily to severe volume depletion and dehydration. We will co ntinue aggressive IV fluid hydration. Avoid nephrotoxic agents and limit contrast exposure. Repeat creatinine in the a.m. 5. Leukocytosis with bandemia. No obvious focal infectious process currently suspect secondary to # 1. We will repeat CBC in the a.m. Continue to monitor for evidence of infectious process. We will hold empiric antibiotic coverage. 6. Sinus tachycardia. Suspect secondarily to #1. We will continue management as outlined in #1. C ontinue telemetry monitoring. Anticipate improvement with correction of underlying acidosis. 7. Prophylaxis. Sequential compression devices while in bed. Pepcid 20 mg IV q.12 hours. Dietitia n consult when patient clinically stabilizes. 8. Code status is FULL. Surrogate medical decision maker is patient's spouse. Total critical care time is 50 minutes.
[2017-12-06] MEDS ORDERED: Ondansetron PF 4 MG/2 ML Vial IVP PRN (02:13)
[2017-12-06] MEDS ORDERED: Acetaminophen 500 MG TAB PO PRN (02:13)
[2017-12-06] MEDS ORDERED: Ondansetron ODT 4 MG TAB PO PRN (02:13)
[2017-12-06] MEDS ORDERED: NS 0.9% w/ 20 MEQ KCL 1,000 ML IV PRN ×2 (02:13)
[2017-12-06] MEDS ORDERED: CCU Electrolyte Replacement 1 EACH IVPB ONE (02:13)
[2017-12-06] MEDS ORDERED: cloNIDine 0.1 MG TAB PO PRN (02:13)
[2017-12-06 04:21] LABS: Troponin I 0.104 ng/mL (< 0.028)
[2017-12-06 04:22] LABS: Osmolality, Serum 340 mOsm/kg (280-295)
[2017-12-06 04:24] LABS: Anion Gap 17 mmol/L (10-20); BUN (Urea Nitrogen) 34 mg/dL (8.9-20.6); Calc. Creatinine Clearance 62 mL/min (70-130); Calcium 9.5 mg/dL (7.8-10.44); Carbon Dioxide 16 mmol/L (22-29); Chloride 116 mmol/L (98-107); Estimated GFR-MDRD 44; Glucose 378 mg/dL (70-105); Magnesium 2.3 mg/dL (1.6-2.6); Phosphorus Less than 1.0 mg/dL (2.3-4.7); Sodium 145 mmol/L (136-145)
[2017-12-06 04:36] LABS: Hemoglobin 12.5 g/dL (14.0-18.0); Mean Corpuscular HGB CONC 32.9 g/dL (32.0-36.0); Mean Corpuscular Hemoglobin 29.9 pg (27.0-31.0); Mean Corpuscular Volume 90.9 fL (78.0-98.0); Mean Platelet Volume 8.6 fL (7.4-10.4); Platelet Count 193 thou/uL (130-400); RBC Distribution Width 11.8 % (11.5-14.5); Red Blood Cell (RBC) Count 4.19 mill/uL (4.70-6.10); White Blood Cell (WBC) Count 27.9 thou/uL (4.8-10.8)
[2017-12-06] MEDS ORDERED: Adenosine 6 MG/2 ML VIAL ONE (06:03)
--- NOTE | 2017-12-06 06:18 | PDOC.EVN ---
Event Note - Event Note Event Note: Called by nursing regarding pt in SVT with HR's in 180's. Pt c/o dyspnea, CP and dizziness. EKG confirming SVT at 176bpm. O2 sat in 94% on 3L/min NC. Tx with Adenosine 6mg IVP x 1 dose with resolution of SVT and HR's in 110's. Pt symptomatically improved with stable vital signs and O2 sats 100% on 2L/min NC. Review of metabolic panel show normal electrolytes except PO3 1.0. Continue aggressive IVF's per DKA protocol with serial metabolic monitoring. Continue Insulin gtt. Total critical care time 31min.
[2017-12-06] MEDS ORDERED: Adenosine 6 MG/2 ML VIAL IVP SCH (06:30)
[2017-12-06 06:33] LABS: Anion Gap 11 mmol/L (10-20); BUN (Urea Nitrogen) 29 mg/dL (8.9-20.6); Calc. Creatinine Clearance 72 mL/min (70-130); Calcium 9.3 mg/dL (7.8-10.44); Carbon Dioxide 20 mmol/L (22-29); Chloride 115 mmol/L (98-107); Estimated GFR-MDRD 52; Glucose 253 mg/dL (70-105); Sodium 142 mmol/L (136-145)
--- NOTE | 2017-12-06 07:37 | CON ---
DATE OF CONSULTATION: 12/06/2017 REASON FOR CONSULTATION: Diabetic ketoacidosis. CONSULTING PHYSICIAN: Dr. Baron. HISTORY OF PRESENT ILLNESS: The patient is a 27-year-old male with a history of repeated admissions for DKA, came in last night, extremely acidotic. He tells me this happens time to time. He states h e had not stopped taking his insulin, although he does not appear to be the most reliable historians. PAST MEDICAL HISTORY: 1. Type 1 diabetes mellitus. 2. Gastroparesis. 3. Paroxysmal atrial fibrillation. PAST SURGICAL HISTORY: Negative. MEDICATIONS PRIOR TO ADMISSION: 1. Novolin 70/30, 20 units subcu t.i.d. with meals. 2. Regular insulin sliding scale. 3. Reglan 10 mg q.i.d. as needed. ALLERGIES: None. SOCIAL HISTORY: He smokes cigarettes, occasionally uses marijuana. FAMILY MEDICAL HISTORY: Remarkable for diabetes. REVIEW OF SYSTEMS: Otherwise, negative. PHYSICAL EXAMINATION: VITAL SIGNS: Pulse 107, blood pressure 98/40, O2 sat 99%, respiratory rate 17, temperature 99.2. GENERAL: He is awake, alert, able to converse. HEENT: Unremarkable. NECK: No adenopathy, JVD, or bruits. LUNGS: Clear. CARDIOVASCULAR: S1, S2, slightly tachycardic. ABDOMEN: Soft, nontender. EXTREMITIES: No clubbing, cyanosis, or edema. SKIN: Multiple tattoos throughout. LABORATORY DATA: White blood cell count 27.9, hematocrit 38.1, platelet count 193. Sodium 142, pota ssium 4.0, chloride 115, CO2 20, BUN 29, creatinine 1.5, glucose 253. His anion gap is 7. Beta hydr oxybutyrate 1.35. X-RAY FINDINGS: Chest x-ray shows no mass, effusion or infiltrate. ASSESSMENT: 1. Diabetic ketoacidosis. 2. Severe volume depletion. PLAN: The patient is correcting nicely with the IV fluid administration and the IV insulin drip. Hi s gap is just about closed. I anticipate him coming off the drip later today. Pulmonary or Critical Care has nothing to add to the excellent management in this patient.
[2017-12-06] MEDS ORDERED: Famotidine/PF 20 mg/2ml Vial SLOW IVP SCH (09:00)
[2017-12-06] MEDS ORDERED: Insulin Regular 300 UNITS/3 ML VIAL SC PRN (11:15)
[2017-12-06 11:21] LABS: Anion Gap 11 mmol/L (10-20); BUN (Urea Nitrogen) 23 mg/dL (8.9-20.6); Calc. Creatinine Clearance 92 mL/min (70-130); Calcium 8.9 mg/dL (7.8-10.44); Carbon Dioxide 21 mmol/L (22-29); Chloride 116 mmol/L (98-107); Estimated GFR-MDRD 70; Glucose 175 mg/dL (70-105); Potassium 3.9 mmol/L (3.5-5.1); Sodium 144 mmol/L (136-145)
[2017-12-06] MEDS ORDERED: NPH, Human Insulin Isophane 300 UNIT/3 ML VIAL SC SCH ×2 (11:30→21:00)
[2017-12-06] MEDS: ALPRAZolam 0.25 MG TAB PO PRN (11:42)
[2017-12-06] MEDS: 1/2 NS w/KCL 20 mEq 1,000 ML IV SCH ×2 (11:55→21:35)
[2017-12-06] MEDS ORDERED: Potassium Phosphate 15 MMOL in Sodium Chloride 0.9% 250 ML 250 ML IVPB SCH (12:15)
--- NOTE | 2017-12-06 16:12 | PDOC.PN ---
- Subjective Encounter Start Date: 12/06/17 Encounter Start Time: 11:00 Patient seen and examined for DKA. No new complaints. Feels better. No overnight events - Objective Resuscitation Status: Resuscitation Status FULL:Full Resuscitation MAR Reviewed: Yes Vital Signs & Weight: Vital Signs (12 hours) Temp Pulse Ox 12/06/17 16:02 99 12/06/17 12:00 98.3 F 12/06/17 07:07 99 12/06/17 07:00 99.2 F Weight Weight 162 lb 4.163 oz Most Recent Monitor Data Heart Rate from ECG 105 NIBP 113/63 NIBP BP-Mean 79 Respiration from ECG 21 SpO2 96 I&O: 12/05/17 12/06/17 12/07/17 06:59 06:59 06:59 Intake Total 2068 1360 Output Total 2850 400 Balance -782 960 Result Diagrams: 12/06/17 03:30 12/06/17 10:41 Additional Labs: Accuchecks 12/06/17 12/06/17 12/06/17 09:59 07:54 06:43 POC Glucose 166 H 194 H 208 H 12/06/17 12/06/17 12/06/17 05:22 04:19 03:04 POC Glucose 250 H 274 H 344 H 12/06/17 02:00 POC Glucose 410 H Radiology Reviewed by me: Yes (CXR - neg) EKG Reviewed by me: Yes (Tele SR/ST) Phys Exam - Physical Examination Constitutional: NAD Respiratory: no wheezing, no rales, no rhonchi, clear to auscultation bilateral Cardiovascular: RRR, no significant murmur, no rub no heaves/pulsations Gastrointestinal: soft, non-tender, no distention, positive bowel sounds Musculoskeletal: no edema Neurological: non-focal, normal sensation, moves all 4 limbs Psychiatric: normal affect, A&O x 3 Dx/Plan - Plan DVT proph w/SCDs 1. DKA - type 1 Anion gap closed Change to NPH with sliding scale DC Insulin drip AM labs, Transfer to tele 2. SVT due to Severe hyperkalemia - improved 3. Metabolic acidosis due to #1 4. Leucocytosis/SIRS due to # 1 5. Abn troponin due to SVT 6. Electrolyte abn - Hyperkalemia/Hypophosphatemia 7. Med noncompliance Laboratory Tests 12/06/17 12/06/17 03:30 06:03 B-Hydroxybutyrate 3.98 H 1.35 H Review of Systems - Review of Systems Constitutional: negative: fever, chills, sweats, weakness, malaise, other Respiratory: negative: Cough, Dry, Shortness of Breath, Hemoptysis, SOB with Excertion, Pleuritic Pain, Sputum, Wheezing Cardiovascular: negative: chest pain, palpitations, orthopnea, paroxysmal nocturnal dyspnea, edema, light headedness, other Gastrointestinal: negative: Nausea, Vomiting, Abdominal Pain, Diarrhea, Constipation, Melena, Hematochezia, Other Genitourinary: negative: Dysuria, Frequency, Incontinence, Hematuria, Retention , Other - Medications/Allergies Allergies/Adverse Reactions: Allergies Allergy/AdvReac Type Severity Reaction Status Date / Time No Known Allergies Allergy Verified 12/06/17 07:02 Medications: Current Medications Acetaminophen (Tylenol) 1,000 mg PO Q6H PRN PRN Reason: Mild Pain (1-3) Alprazolam (Xanax) 0.25 mg PO BID PRN PRN Reason: Anxiety Last Admin: 12/06/17 11:42 Dose: 0.25 mg Clonidine (Catapres) 0.1 mg PO Q4H PRN PRN Reason: SBP Greater Than 180 Dextrose/Water (Dextrose 50%) 25 gm SLOW IVP PRN PRN PRN Reason: HYPOGLYCEMIA PROTOCOL Famotidine (Pepcid) 20 mg PO BID CARLEE Glucagon (Glucagon) 1 mg IM PRN PRN PRN Reason: HYPOGLYCEMIA PROTOCOL Dextrose/Water (D5w) 1,000 mls @ 0 mls/hr IV INF PRN PRN Reason: HYPOGLYCEMIA PROTOCOL Dextrose/Water (D5w) 1,000 mls @ 0 mls/hr IV .Q0M PRN PRN Reason: Hypoglycemia Potassium Chloride/Sodium Chloride (1/2 Ns W/Kcl 20 Meq) 1,000 mls @ 100 mls/ hr IV .Q10H CARLEE Last Admin: 12/06/17 11:55 Dose: 1,000 mls Potassium Phosphate 15 mmol/ (Sodium Chloride) 255 mls @ 62.5 mls/hr IVPB NOW CARLEE Stop: 12/06/17 17:00 Last Admin: 12/06/17 12:53 Dose: 255 mls Insulin Human NPH (Humulin N) 10 unit SC BID CARLEE Insulin Human Regular (Humulin R) 0 units SC .BEDTIME SLIDING SC PRN PRN Reason: Bedtime Correctional Scale Insulin Human Regular (Humulin R) 0 units SC .MODERATE SLIDING SC PRN PRN Reason: Moderate Correctional Scale Ccu Electrolyte (Replacement Protocol) 0 each FS PRN PRN PRN Reason: FOR ELECTROLYTE REPLACEMENT Ondansetron HCl (Zofran Odt) 4 mg PO Q6H PRN PRN Reason: Nausea/Vomiting Ondansetron HCl (Zofran) 4 mg IVP Q6H PRN PRN Reason: Nausea/Vomiting Last Admin: 12/06/17 11:59 Dose: 4 mg Phosphorus (Kphos Neutral) 500 mg PO TID-WM CARLEE Sodium Chloride (Flush - Normal Saline) 10 ml IVF PRN PRN PRN Reason: Saline Flush
[2017-12-06] MEDS: K-Phos Neutral 250 MG TAB PO SCH (18:16)
[2017-12-06] MEDS: Famotidine 20 MG TAB PO SCH (20:45)
[2017-12-07 05:44] LABS: #Lymphocytes 1.8 thou/uL (1.20-3.40); #Neutrophils 12.7 thou/uL (1.40-6.50); %Eosinophils 0.1 % (0.0-10.0); %Lymphocytes 11.4 % (21.0-51.0); %Monocytes 6.7 % (0.0-10.0); %Neutrophils 81.7 % (42.0-75.0); Hemoglobin 12.4 g/dL (14.0-18.0); Mean Corpuscular HGB CONC 32.1 g/dL (32.0-36.0); Mean Corpuscular Hemoglobin 29.2 pg (27.0-31.0); Mean Platelet Volume 8.8 fL (7.4-10.4); Platelet Count 141 thou/uL (130-400); RBC Distribution Width 11.9 % (11.5-14.5); Red Blood Cell (RBC) Count 4.26 mill/uL (4.70-6.10); White Blood Cell (WBC) Count 15.5 thou/uL (4.8-10.8)
[2017-12-07 06:08] LABS: Anion Gap 9 mmol/L (10-20); BUN (Urea Nitrogen) 14 mg/dL (8.9-20.6); Calc. Creatinine Clearance 109 mL/min (70-130); Calcium 8.8 mg/dL (7.8-10.44); Carbon Dioxide 26 mmol/L (22-29); Chloride 106 mmol/L (98-107); Estimated GFR-MDRD 83; Glucose 268 mg/dL (70-105); Magnesium 1.5 mg/dL (1.6-2.6); Phosphorus 1.9 mg/dL (2.3-4.7); Potassium 3.7 mmol/L (3.5-5.1); Sodium 137 mmol/L (136-145)
[2017-12-07] MEDS ORDERED: traMADol HCl 50 MG TAB PO PRN (06:32)
[2017-12-07] MEDS ORDERED: Magnesium 2 GM/50 ML 2 GM in Premix Bag 1 BAG IVPB SCH (08:00)
[2017-12-07] MEDS: K-Phos Neutral 250 MG TAB PO SCH ×3 (08:29→16:41)
[2017-12-07] MEDS: 1/2 NS w/KCL 20 mEq 1,000 ML IV SCH ×2 (08:29→20:35)
[2017-12-07] MEDS: Famotidine 20 MG TAB PO SCH ×2 (08:30→20:34)
[2017-12-07] MEDS: NPH, Human Insulin Isophane 300 UNIT/3 ML VIAL SC SCH ×2 (08:45→21:47)
[2017-12-07] MEDS ORDERED: Acetaminophen/Codeine 30-300mg Tablet PO PRN (09:13)
[2017-12-07] MEDS ORDERED: Cyclobenzaprine 10 MG TAB PO SCH (09:30)
[2017-12-07] MEDS: Ketorolac Tromethamine 30 MG/ML VIAL IVP SCH ×3 (09:43→21:47)
[2017-12-07] MEDS ORDERED: Morphine 2 MG/ML SYRINGE SLOW IVP SCH (10:15)
[2017-12-07] MEDS ORDERED: ISOVUE-370 76%-LOCM 1 ML ONE (10:59)
--- NOTE | 2017-12-07 11:27 | CT ---
CT LUMBAR SPINE: Date: 12/07/17 PROVIDED CLINICAL HISTORY: Low back pain without injury. FINDINGS: Lumbar alignment appears normal. Vertebral body heights are preserved. No lytic or blastic lesions ar e seen. No paravertebral inflammatory changes are evident. There is no significant central canal or f oraminal narrowing apparent by CT. There is partially visualized retroperitoneal fluid density and ap parent periportal edema involving the partially visualized liver. These changes are incompletely richard acterized. Free pelvic fluid may also be present. Scattered vascular calcifications are seen. IMPRESSION: 1. No evidence for an acute osseous abnormality involving the lumbar spine. 2. Partially visualized retroperitoneal and possibly intraperitoneal fluid density. Correlation with CT of the abdomen and pelvis utilizing IV and enteric contrast recommended. CODE T. POS: COSME
[2017-12-07] MEDS ORDERED: Morphine 2 MG/ML SYRINGE SLOW IVP PRN (12:13)
[2017-12-07] MEDS: Insulin Regular 300 UNITS/3 ML VIAL SC PRN ×2 (12:18→18:00)
--- NOTE | 2017-12-07 15:28 | PDOC.PN ---
- Subjective Encounter Start Date: 12/07/17 Encounter Start Time: 09:45 Patient seen and examined for DKA. 11/19 pain in B/L Leg and back x 1 week. Patient states that this is why he came to ER. Unable to get out of bed due to pain. No tingling/numbness in LE. No other complaints. No overnight events - Objective Resuscitation Status: Resuscitation Status FULL:Full Resuscitation MAR Reviewed: Yes Vital Signs & Weight: Vital Signs (12 hours) Temp Pulse Resp BP Pulse Ox 12/07/17 11:19 97.7 F 67 16 113/74 99 12/07/17 08:23 98.6 F 94 16 116/73 96 12/07/17 04:00 98.9 F 87 14 112/68 98 Weight Weight 165 lb 9.012 oz Most Recent Monitor Data Heart Rate from ECG 93 NIBP 116/74 NIBP BP-Mean 88 Respiration from ECG 14 SpO2 96 I&O: 12/06/17 12/07/17 12/08/17 06:59 06:59 06:59 Intake Total 2068 3678 Output Total 2850 2050 Balance -782 1628 Result Diagrams: 12/07/17 05:00 12/07/17 05:00 Additional Labs: Accuchecks 12/07/17 12/07/17 12/07/17 10:45 06:10 01:04 POC Glucose 278 H 289 H 160 H 12/06/17 12/06/17 20:44 16:04 POC Glucose 111 H 74 EKG Reviewed by me: Yes (Tele SR) Phys Exam - Physical Examination In distress due to significant pain Neck: no JVD Respiratory: no wheezing, no rales, no rhonchi, clear to auscultation bilateral Cardiovascular: RRR, no rub no heaves/pulsations Gastrointestinal: soft, non-tender, no distention, positive bowel sounds Musculoskeletal: no edema, pulses present Neurological: non-focal, normal sensation, moves all 4 limbs unable to move leg due to back pain Psychiatric: normal affect, A&O x 3 Dx/Plan - Plan DVT proph w/lovenox, DVT proph w/SCDs 1. DKA - type 1 Increase NPH dose to 15 BID Cont sliding scale AM labs 2. Intractable back pain CT Lumbar spine Pain control Check CK to r/o rhabdomyolysis 3. Metabolic acidosis due to #1 4. Leucocytosis/SIRS due to # 1 5. Abn troponin due to SVT 6. Electrolyte abn - Hyperkalemia/Hypophosphatemia 7. SVT due to Severe hyperkalemia - no new episode Med noncompliance Review of Systems - Review of Systems Respiratory: negative: Cough, Dry, Shortness of Breath, Hemoptysis, SOB with Excertion, Pleuritic Pain, Sputum, Wheezing Cardiovascular: negative: chest pain, palpitations, orthopnea, paroxysmal nocturnal dyspnea, edema, light headedness, other Gastrointestinal: negative: Nausea, Vomiting, Abdominal Pain, Diarrhea, Constipation, Melena, Hematochezia, Other Musculoskeletal: Back Pain, Leg Pain. negative: Neck Pain, Shoulder Pain, Arm Pain, Hand Pain, Foot Pain, Other - Medications/Allergies Allergies/Adverse Reactions: Allergies Allergy/AdvReac Type Severity Reaction Status Date / Time No Known Allergies Allergy Verified 12/06/17 07:02 Medications: Current Medications Acetaminophen (Tylenol) 1,000 mg PO Q6H PRN PRN Reason: Mild Pain (1-3) Acetaminophen/Codeine Phosphate (Tylenol #3) 1 tab PO Q4H PRN PRN Reason: Moderate Pain (4-6) Alprazolam (Xanax) 0.25 mg PO BID PRN PRN Reason: Anxiety Last Admin: 12/06/17 11:42 Dose: 0.25 mg Clonidine (Catapres) 0.1 mg PO Q4H PRN PRN Reason: SBP Greater Than 180 Cyclobenzaprine HCl (Flexeril) 10 mg PO TID [facility] Stop: 12/08/17 15:01 Dextrose/Water (Dextrose 50%) 25 gm SLOW IVP PRN PRN PRN Reason: HYPOGLYCEMIA PROTOCOL Enoxaparin Sodium (Lovenox) 30 mg SC 2100 [facility] Famotidine (Pepcid) 20 mg PO BID [facility] Last Admin: 12/07/17 08:30 Dose: 20 mg Glucagon (Glucagon) 1 mg IM PRN PRN PRN Reason: HYPOGLYCEMIA PROTOCOL Dextrose/Water (D5w) 1,000 mls @ 0 mls/hr IV .Q0M PRN PRN Reason: Hypoglycemia Potassium Chloride/Sodium Chloride (1/2 Ns W/Kcl 20 Meq) 1,000 mls @ 100 mls/ hr IV .Q10H [facility] Last Admin: 12/07/17 08:29 Dose: 1,000 mls Insulin Human NPH (Humulin N) 15 unit SC BID [facility] Last Admin: 12/07/17 08:45 Dose: 15 unit Insulin Human Regular (Humulin R) 0 units SC .BEDTIME SLIDING SC PRN PRN Reason: Bedtime Correctional Scale Insulin Human Regular (Humulin R) 0 units SC .MODERATE SLIDING SC PRN PRN Reason: Moderate Correctional Scale Last Admin: 12/07/17 12:18 Dose: 6 unit Ketorolac Tromethamine (Toradol) 15 mg IVP 0300,0900,1500,2100 [facility] Stop: 12/12/17 09:01 Last Admin: 12/07/17 09:43 Dose: 15 mg Morphine Sulfate (Morphine) 2 mg SLOW IVP Q4H PRN PRN Reason: Severe Pain (7-10) Stop: 12/08/17 12:14 Ccu Electrolyte (Replacement Protocol) 0 each FS PRN PRN PRN Reason: FOR ELECTROLYTE REPLACEMENT Ondansetron HCl (Zofran Odt) 4 mg PO Q6H PRN PRN Reason: Nausea/Vomiting Ondansetron HCl (Zofran) 4 mg IVP Q6H PRN PRN Reason: Nausea/Vomiting Last Admin: 12/06/17 11:59 Dose: 4 mg Phosphorus (Kphos Neutral) 500 mg PO TID-[facility] Last Admin: 12/07/17 11:22 Dose: 500 mg Sodium Chloride (Flush - Normal Saline) 10 ml IVF PRN PRN PRN Reason: Saline Flush Tramadol HCl (Ultram) 50 mg PO Q6H PRN PRN Reason: Pain 4-6 Last Admin: 12/07/17 06:37 Dose: 50 mg
[2017-12-07] MEDS: Cyclobenzaprine 10 MG TAB PO SCH ×2 (15:32→20:34)
[2017-12-07] MEDS ORDERED: Eucerin (Mineral Oil/Petrolatum,White) 30 gm Jar TOP PRN (15:42)
--- NOTE | 2017-12-07 15:53 | CT ---
CT ABDOMEN AND PELVIS WITH CONTRAST: Date: 12/07/17 Multiple axial tomograms are obtained through the abdomen and pelvis with IV enhancement. Oral contra st was given. INDICATION: Question periportal fluid density seen on soft tissues from CT lumbar spine earlier today. FINDINGS: Lung bases show mild bibasilar atelectasis. Liver and spleen are unremarkable. Pancreas unremarkable. There is abnormal fluid density surrounding the gallbladder, corresponding to the area of fluid densi ty seen on CT. There is no evidence of biliary ductal dilatation. Mild pericholecystic edema nay be p resent. There is evidence of intestinal malrotation. The colon is located to the left of midline. Small bowel loops are seen in the mid and right abdomen. Prominent stool is seen throughout the colon and rectum suggesting constipation. Kidneys are unremarkable and show equal function. There is a small cyst from the inferior pole of the left kidney measuring approximately 1.5 cm. IMPRESSION: 1. Evidence of pericholecystic edema or fluid. Gallstones may not be apparent on CT. Suggestion smith elation with gallbladder ultrasound. 2. Evidence of intestinal malrotation. POS: COSME
[2017-12-07] MEDS: Piperacillin/Tazobactam 3.375 GM in Sodium Chloride 0.9% 100 ML IVPB SCH ×2 (16:36→21:47)
[2017-12-07] MEDS: ALPRAZolam 0.25 MG TAB PO PRN (20:33)
[2017-12-07] MEDS: Senokot S 8.6-50 MG TAB PO SCH (20:33)
[2017-12-07] MEDS ORDERED: Enoxaparin Sodium 30 MG/0.3 ML SYRINGE SC SCH (21:00)
[2017-12-08] MEDS: Ketorolac Tromethamine 30 MG/ML VIAL IVP SCH ×3 (03:35→15:30)
[2017-12-08] MEDS: Piperacillin/Tazobactam 3.375 GM in Sodium Chloride 0.9% 100 ML IVPB SCH ×3 (04:34→15:32)
[2017-12-08 05:27] LABS: #Lymphocytes 2.1 thou/uL (1.20-3.40); #Monocytes 0.6 thou/uL (0.11-0.59); %Basophils 0.1 % (0.0-1.0); %Eosinophils 0.5 % (0.0-10.0); %Lymphocytes 27.1 % (21.0-51.0); %Monocytes 7.2 % (0.0-10.0); %Neutrophils 65.1 % (42.0-75.0); Mean Corpuscular Hemoglobin 29.4 pg (27.0-31.0); Mean Corpuscular Volume 91.9 fL (78.0-98.0); Mean Platelet Volume 8.8 fL (7.4-10.4); Platelet Count 121 thou/uL (130-400); Red Blood Cell (RBC) Count 4.42 mill/uL (4.70-6.10); White Blood Cell (WBC) Count 7.7 thou/uL (4.8-10.8)
[2017-12-08 05:54] LABS: Anion Gap 8 mmol/L (10-20); BUN (Urea Nitrogen) 18 mg/dL (8.9-20.6); Calc. Creatinine Clearance 117 mL/min (70-130); Calcium 8.6 mg/dL (7.8-10.44); Carbon Dioxide 26 mmol/L (22-29); Chloride 107 mmol/L (98-107); Estimated GFR-MDRD 84; Glucose 375 mg/dL (70-105); Phosphorus 2.8 mg/dL (2.3-4.7); Potassium 4.2 mmol/L (3.5-5.1); Sodium 137 mmol/L (136-145)
[2017-12-08] MEDS: Insulin Regular 300 UNITS/3 ML VIAL SC PRN (06:15)
[2017-12-08 08:34] LABS: Base Excess-Venous -24.7 mmol/L (0 (+/- 2.5)); Bicarbonate (HCO3v) 3.8 mmol/L (1.0-85.0); CO2 Tension (PvCO2) 13.8 mmHg (41.0-51.0); Calcium, Ionized 1.13 mmol/L (1.12-1.32); Hemoglobin - Calc 16.1 g/dL (12.0-18.0); O2 Tension (PvO2) 88.6 mmHg (35.0-45.0); Potassium 7.1 mmol/L (3.4-4.7); T. Carbon Dioxide Less than 5.0 mmol/L (1.0-85.0); pH (Venous) 7.047 (7.35-7.45); vO2 Saturation-calc 92.1 % (94-98)
[2017-12-08] MEDS ORDERED: Polyethylene Glycol 3350 17 GM Packet PO SCH (09:00)
[2017-12-08] MEDS ORDERED: Insulin Regular 300 UNITS/3 ML VIAL SC PRN (09:07)
--- NOTE | 2017-12-08 09:29 | ULT ---
RIGHT UPPER QUADRANT ULTRASOUND: Comparison: None. History: Abnormal gallbladder seen on CT. Technique: Multiplanar grayscale and color doppler images were obtained in a right upper quadrant abd ominal ultrasound. FINDINGS: The gallbladder shows no evidence of stones or sludge. There is gallbladder wall thickening and a sma ll amount of pericholecystic fluid. The common bile duct is normal measuring 2 mm. The liver is normal in echogenicity without focal lesions or intrahepatic duct dilatation. The visual ized portions of the pancreas are unremarkable. The right kidney is normal in echogenicity without hy dronephrosis or calculus and measures 13.1 cm in length. IMPRESSION: There is a small amount of pericholecystic fluid and gallbladder wall thickening. This is nonspecific and could be secondary to a calculus cholecystitis. Correlate with LFTs. POS: COSME
[2017-12-08] MEDS: 1/2 NS w/KCL 20 mEq 1,000 ML IV SCH (09:49)
[2017-12-08] MEDS: NPH, Human Insulin Isophane 300 UNIT/3 ML VIAL SC SCH (09:50)
[2017-12-08] MEDS: Cyclobenzaprine 10 MG TAB PO SCH ×2 (09:55→15:31)
[2017-12-08] MEDS: K-Phos Neutral 250 MG TAB PO SCH ×2 (09:56→14:46)
[2017-12-08] MEDS: Senokot S 8.6-50 MG TAB PO SCH (09:56)
[2017-12-08] MEDS: ALPRAZolam 0.25 MG TAB PO PRN (09:56)
[2017-12-08] MEDS: Famotidine 20 MG TAB PO SCH (09:57)
--- NOTE | 2017-12-08 15:48 | NM ---
HEPATOBILIARY SCAN: 12/08/17 HISTORY: 27-year-old male with abnormal gallbladder ultrasound. RADIOPHARMACEUTICAL: 5 millicuries technetium 99m-mebrofenin injected intravenously. FINDINGS: There is good tracer extraction by the liver with prompt excretion of the biliary tract and small bow el loops are normal filling the gallbladder. The calculated gallbladder ejection fraction following a n oral fatty meal measures 75%. IMPRESSION: Normal exam. POS: COSME
[2017-12-08 17:10] VITALS: BP 126/85; TEMP 98.1
--- NOTE | 2017-12-08 22:28 | CON ---
DATE OF CONSULTATION: 12/07/2017 REQUESTING PHYSICIAN: Dr. Edis Mckinney. HISTORY OF PRESENT ILLNESS: This is a 27-year-old man with multiple previous hospital admi ssions for diabetic ketoacidosis. The patient presented to the emergency department 3 days previousl y with complaint of generalized weakness, nausea, and vomiting. His symptoms started from 2-3 days p rior to the initial presentation in the Emergency Department. The patient at that time had no fevers or chills. Workup at that time was consistent with acute recurrent diabetic ketoacidosis. Over the last 2 days, patient has been complaining of some vague abdominal pain occasionally radiating to his back. CT scan of the abdomen and pelvis was obtained revealing a small pericholecystic fluid. Gallbladder ultrasound obtained, although devoid of stones. There is a mild gallbladder wall thickening and a sm all amount of pericholecystic fluid present. I was asked to evaluate the patient for possible surgical intervention of what is presumed to be an a calculous cholecystitis. At the time of my evaluation, patient is awake and alert. He reports 4/10 abdominal pain. The patient states this pain has been off and on over the last month and half. He d oes not recall anything makes the pain worse or better. He admits to some loose bowel movements over the last few days. He denies any abdominal bloating, fevers or chills. PAST MEDICAL HISTORY: Significant for type 1 diabetes mellitus, recurrent diabetic ketoacidosis and history of gastroparesis. SURGICAL HISTORY: Only pertinent for upper endoscopy last year which was normal. The upper endoscop y was to evaluate the patient's complaint of hematemesis, although the endoscopic examination did not support that. SOCIAL HISTORY: Patient admits to smoking 1 pack of cigarettes per day. He has done so for over 10 years. He admits to occasional intake of ethanol and smokes marijuana occasionally. FAMILY HISTORY: Notable for both parents with diabetes mellitus. He denies any family history of he art disease or cancer. PREHOSPITALIZATION MEDICATIONS: Includes Novolin insulin 70/30 20 units subcutaneously t.i.d., regul ar insulin sliding scale, Reglan 10 mg p.o. q.i.d. p.r.n. for his history of gastroparesis. ALLERGIES: Patient denies any known drug allergies. REVIEW OF SYSTEMS: Ten point review of systems essentially unremarkable except for as stated in past medical history and chief complaint. PHYSICAL EXAMINATION: GENERAL: This reveals a 27-year-old normally developed man who is otherwise coherent and interactive and appears stated age. The patient is alert and oriented x3. Appears to be in no acute distress a t the time of my evaluation. VITAL SIGNS: Today includes blood pressure 121/79, pulse 68, respiratory rate is 16, temperature is 98 degrees Fahrenheit and oxygen saturation is 98% on room air. HEENT: Reveals normocephalic and atraumatic. He has no sclerae icterus present. HEART: Reveals regular rate and rhythm, no murmurs or gallops auscultated. LUNGS: Clear to auscultation bilaterally. Breathing is regular and unlabored. ABDOMEN: Soft, nontender, nondistended. Liver and spleen are clearly nonpalpable below costal ginger n. EXTREMITIES: Reveals 2+ radial and pedal pulses bilaterally. No ankle edema is present. NEUROLOGIC: Examination reveals no focal deficits present. LABORATORY DATA AND IMAGING DATA: Laboratory findings today includes CBC with a normal white blood c ell count of 7,700. This is in fact contrast to 39,700 on 12/05/2017, 27,900 on 12/06/2017; and 15,5 00 yesterday 12/07/2017. Hemoglobin and hematocrit are stable at 13.0 and 40.6 respectively. Platel et count is 121,000. Metabolic profile; sodium 137, potassium is 4.2, chloride is 107, bicarbonate i s 26, BUN 18, creatinine is 1.05, glucose remains high at 375. Note that LFTs and serum lipase were normal on admission. I have personally reviewed the CT scan of the abdomen and pelvis which is unrem arkable for any significant intraperitoneal pathology except for small pericholecystic fluid. I have also reviewed the abdominal ultrasound, which was obtained this morning revealing mild gallbladder w all thickness at 3.8 mm and a small pericholecystic fluid. No gallstones or biliary sludge was evide nt. Common bile duct size is normal in diameter at less than 3 mm. I have also reviewed the HIDA sc an which was obtained today of my recommendation. Gallbladder is promptly visualized. Ejection frac tion is normal at 75%. IMPRESSION: 1. Vague abdominal pain. I have no clinical and radiographic examination to support an acute biliar y process at this time. 2. I do not think that this patient has acalculous cholecystitis. RECOMMENDATIONS: 1. Continue conservative management. 2. I recommend we will place the patient on proton pump inhibitor and treat for possible gastroesoph ageal reflux disease given the patient's history of gastroparesis. There is no acute surgical indica tion for this patient at this time. General Surgery will sign off on this case and be available to r eevaluate the patient on demand. Thank you again, Dr. Mckinney for allowing me the opportunity to participate in the care of this patient .
[2017-12-09] MEDS ORDERED: Saccharomyces boulardii 250 MG CAP PO SCH (09:00)
--- NOTE | 2017-12-09 11:17 | DIS ---
DATE OF DISCHARGE: 12/08/2017 DISCHARGE DISPOSITION: Home. FOLLOWUP: Follow up with primary care physician at [facility] in 1 week. ALLERGIES: No known drug allergies. The patient was seen and examined on the day of discharge. Denies any new complaints. DISCHARGE MEDICATIONS: 1. Flexeril as needed for 1 week. 2. Tramadol as needed, #20. 3. Protonix 40 mg daily. 4. All other home medications were left unchanged. BRIEF HOSPITAL COURSE: The patient is a 27-year-old male with diabetes mellitus, type 1, presented t o the [facility] with generalized weakness. Please refer to the history and physical for further detai ls. The patient was admitted to the Intensive Care Unit with a diagnosis of diabetic ketoacidosis wi th ketones of 11.6. Blood glucose of 971, bicarbonate less than 8, potassium 7.6. His VBG showed pH of 7.04 with pCO2 of 14 and bicarbonate of 3.8. He was started on diabetic ketoacidosis protocol wi th insulin drip, IV fluids with good improvement. His electrolytes were replaced. He was then trans ferred to the telemetry unit. He also had supraventricular tachycardia on admission, probably second koby to significant hyperkalemia. He did not have any new arrhythmias on the tele monitor. Due to in tractable back pain, he underwent lumbar spine CT that was negative. The lumbar spine CT showed some changes in the retroperitoneum, for which he underwent a CT scan of the abdomen and pelvis with oral and IV contrast that showed possible cholecystitis. He then underwent an abdominal ultrasound that was equivocal for cholecystitis. The patient was seen by General Surgery, Dr. Chu. HIDA scan was done that was normal. He has been started on PPIs per General Surgery. His bicarbonate on the day o f discharge is 26. He was extensively counseled to be compliant with insulin. FINAL DIAGNOSES: 1. Diabetic ketoacidosis. 2. Supraventricular tachycardia, secondary to severe hyperkalemia. 3. Metabolic acidosis, secondary to diabetic ketoacidosis. 4. leukocytosis/systemic inflammatory response syndrome, secondary to diabetic ketoacidosis. No inf ectious etiology identified. 5. Abnormal troponin secondary to supraventricular tachycardia. 6. Significant hyperkalemia with potassium 7.6 on admission. 7. Hypophosphatemia. 8. Hypomagnesemia. 9. Medication noncompliance. 10. Intractable back pain, improving. Plan of care was discussed with the patient in detail. He stated understanding.
--- NOTE | 2017-12-13 22:12 | EKG ---
Test Reason : Blood Pressure : / mmHG Vent. Rate : 150 BPM Atrial Rate : 150 BPM P-R Int : 000 ms QRS Dur : 122 ms QT Int : 340 ms P-R-T Axes : 000 113 052 degrees QTc Int : 537 ms Sinus tachycardia with short AR Right axis deviation Non-specific intra-ventricular conduction delay Marked ST abnormality, possible anterior subendocardial injury Abnormal ECG Confirmed by DUANE JAIMES MD ([id number]), development editor YOEL PARKER ([id number]) on 12/13/2017 10:12:01 PM Referred By: Confirmed By:DUANE JAIMES MD
--- NOTE | 2017-12-13 22:12 | EKG ---
Test Reason : Blood Pressure : / mmHG Vent. Rate : 153 BPM Atrial Rate : 153 BPM P-R Int : 000 ms QRS Dur : 132 ms QT Int : 332 ms P-R-T Axes : 000 120 033 degrees QTc Int : 530 ms Sinus tachycardia with short [place] Right bundle branch block Abnormal ECG Confirmed by DUANE JAIMES MD ([id number]), online editor YOEL PARKER ([id number]) on 12/13/2017 10:12:06 PM Referred By: Confirmed By:DUANE JAIMES MD
== END 2017-12-08 17:44 | disposition home or self-care (01) | DRG 638 ==
LOC: ERS 19:54 → CCU 21:30 → 2NO 12-07 01:04
PROVIDERS: ADMIT Family Medicine; ATTEND Family Medicine
DX: E10.10 Type 1 diabetes mellitus with ketoacidosis without coma (principal); N17.9 Acute kidney failure, unspecified; I47.1 Supraventricular tachycardia; R65.10 Systemic inflammatory response syndrome (SIRS) of non-infectious origin without acute organ dysfunction; Z79.4 Long term (current) use of insulin; Z79.899 Other long term (current) drug therapy; E87.5 Hyperkalemia; E83.39 Other disorders of phosphorus metabolism; E83.42 Hypomagnesemia; Z91.14 Patient's other noncompliance with medication regimen; M54.9 Dorsalgia, unspecified; F17.210 Nicotine dependence, cigarettes, uncomplicated; F12.90 Cannabis use, unspecified, uncomplicated; I48.0 Paroxysmal atrial fibrillation; E86.9 Volume depletion, unspecified
CPT/HCPCS: 36415; 36416; 71045; 72131; 74177; 76705; 78227; 80048; 80053; 81003; 81015; 82010; 82330; 82550; 82553; 82803; 83690; 83735; 83880; 83930; 84100; 84484; 85025; 85027; 87040; 87086; 93005; 93010; 96361; 96365; 96366; 96375; A9537; J0153; J0692; J1650; J1815; J1885; J2270; J2405; J2543; J7050; S0028

== ENCOUNTER 2018-07-12 11:13 | Inpatient (IN) | payer MEDICAID, SELFPAY ==
[2018-07-12 11:50] LABS: #Basophils 0.1 thou/uL (0.0-0.2); #Eosinphils 0.3 thou/uL (0.0-0.7); #Lymphocytes 2.7 thou/uL (1.20-3.40); #Monocytes 0.7 thou/uL (0.11-0.59); #Neutrophils 8.7 thou/uL (1.40-6.50); %Basophils 0.6 % (0.0-1.0); %Eosinophils 2.6 % (0.0-10.0); %Lymphocytes 21.8 % (21.0-51.0); %Monocytes 5.5 % (0.0-10.0); %Neutrophils 69.5 % (42.0-75.0); Hemoglobin 15.6 g/dL (14.0-18.0); Mean Corpuscular HGB CONC 33.9 g/dL (32.0-36.0); Mean Corpuscular Volume 91.5 fL (78.0-98.0); Mean Platelet Volume 8.8 fL (7.4-10.4); Platelet Count 202 thou/uL (130-400); RBC Distribution Width 11.6 % (11.5-14.5); Red Blood Cell (RBC) Count 5.05 mill/uL (4.70-6.10); White Blood Cell (WBC) Count 12.5 thou/uL (4.8-10.8)
[2018-07-12 11:55] LABS: Base Excess-Venous -5.1 mmol/L (-2.0 to 3.0); Bicarbonate (HCO3v) 20.5 mmol/L (22.0-28.0); CO2 Tension (PvCO2) 39.4 mmHg (40.0-50.0); Calcium, Ionized 1.19 mmol/L (See Comments:); Chloride 107 mmol/L (98-107); Hemoglobin - Calc 17.1 g/dL (14.0-18.0); O2 Tension (PvO2) 53.7 mmHg (35.0-45.0); Potassium 4.1 mmol/L (3.5-5.1); Sodium 137 mmol/L (138-145); T. Carbon Dioxide 21.7 mmol/L (22.0-28.0); pH (Venous) 7.325 (7.320-7.430); vO2 Saturation-calc 85.1 % (60.0-85.0)
[2018-07-12] MEDS ORDERED: Ondansetron PF 4 MG/2 ML Vial ONE ×2 (11:56→13:37)
[2018-07-12 12:19] LABS: ALT (SGPT) 22 U/L (8-55); AST (SGOT) 16 U/L (5-34); Albumin 5.2 g/dL (3.5-5.0); Alkaline Phosphatase 64 U/L (40-150); Anion Gap 23 mmol/L (10-20); BUN (Urea Nitrogen) 20 mg/dL (8.9-20.6); Bilirubin, Total 1.4 mg/dL (0.2-1.2); Calc. Creatinine Clearance 0 mL/min (70-130); Calcium 11.2 mg/dL (7.8-10.44); Carbon Dioxide 20 mmol/L (22-29); Chloride 99 mmol/L (98-107); Estimated GFR-MDRD 66; Globulin 2.6 g/dL (2.4-3.5); Glucose 448 mg/dL (70-105); Lipase 11 U/L (8-78); Potassium 4.3 mmol/L (3.5-5.1); Protein, Total 7.8 g/dL (6.0-8.3); Sodium 138 mmol/L (136-145)
[2018-07-12] MEDS ORDERED: Insulin Regular 300 UNITS/3 ML VIAL ONE (12:31)
[2018-07-12 13:20] LABS: Bilirubin Negative (Negative); Blood, Urine Negative (Negative); Clarity CLEAR (Clear); Glucose, Urine (Dipstick) >=1000 mg/dL (Negative); Leukocyte Negative (Negative); Nitrite Negative (Negative); Protein, Urine (Dipstick) Negative (Neg-Trace); Specific Gravity, Urine 1.037 (1.002-1.036); Urobilinogen 0.2 mg/dL (0.2-1.0)
[2018-07-12] MEDS ORDERED: Insulin Regular 100 units/100 ml in NS IVPB SCH (14:00)
[2018-07-12] MEDS ORDERED: Dextrose 50% Abboject 50 ML SYRINGE SLOW IVP PRN (14:58)
[2018-07-12] MEDS ORDERED: Sodium Chloride 0.9% 1,000 ML IV PRN ×8 (14:58→15:31)
[2018-07-12] MEDS ORDERED: NS 0.9% w/ 20 MEQ KCL 1,000 ML/1,000 ML BAG IV PRN ×2 (14:58)
[2018-07-12] MEDS ORDERED: Dextrose 5 %-0.45 % NaCl 1,000 ML IV PRN ×2 (14:58→15:31)
[2018-07-12] MEDS ORDERED: D5 1/2 NS w/20 mEq KCL 1,000 ML IV PRN (14:58)
[2018-07-12] MEDS ORDERED: Dextrose 5% in Water 1,000 ML IV PRN (14:58)
[2018-07-12] MEDS ORDERED: Potassium Chloride 40 MEQ in Premix Bag 1 BAG IVPB PRN ×2 (15:00→15:36)
[2018-07-12] MEDS ORDERED: Magnesium Oxide 400 MG TAB PO PRN ×4 (15:00→15:36)
[2018-07-12] MEDS ORDERED: Potassium Chloride 40 MEQ in Sodium Chloride 0.9% 250 ML 250 ML IVPB PRN ×2 (15:00→15:36)
[2018-07-12] MEDS ORDERED: ADD ELECTROLYTE REPLACEMENT SET TO PROFILE FS SCH (15:00)
[2018-07-12] MEDS ORDERED: Potassium Phosphate 9 MMOL in Sodium Chloride 0.9% 100 ML IVPB PRN ×2 (15:00→15:36)
[2018-07-12] MEDS ORDERED: Potassium Phosphate 12 MMOL in Sodium Chloride 0.9% 250 ML 250 ML IV PRN ×2 (15:00→15:36)
[2018-07-12] MEDS ORDERED: Insulin Regular 300 UNITS/3 ML VIAL IVP SCH (15:00)
[2018-07-12] MEDS ORDERED: HUMULIN R 100 UNITS in Sodium Chloride 0.9% 100 ML IVPB SCH ×2 (15:00→15:31)
[2018-07-12] MEDS ORDERED: Magnesium 2 GM/50 ML 2 GM in Premix Bag 1 BAG IVPB PRN ×2 (15:00→15:36)
[2018-07-12] MEDS ORDERED: CCU ELECTROLYTE REPLACEMENT PROTOCOL FS PRN ×2 (15:00→15:36)
[2018-07-12] MEDS ORDERED: Potassium Chloride 20 MEQ TAB PO PRN ×2 (15:00→15:36)
[2018-07-12] MEDS ORDERED: Potassium Phosphate 15 MMOL in Sodium Chloride 0.9% 250 ML 250 ML IV PRN ×2 (15:00→15:36)
[2018-07-12] MEDS ORDERED: PHOS-NAK 1 PKT PACK PO PRN ×4 (15:00→15:36)
[2018-07-12 15:25] VITALS: BMI 21.7
[2018-07-12] MEDS ORDERED: Bisacodyl 10 MG SUPP PR PRN (15:31)
[2018-07-12] MEDS ORDERED: NS 0.9% w/ 20 MEQ KCL 1,000 ML IV PRN ×2 (15:31)
[2018-07-12] MEDS ORDERED: Acetaminophen 325 MG TAB PO PRN (15:31)
[2018-07-12] MEDS ORDERED: Guaifenesin DM 100-10/5 ML UDCUP PO PRN (15:31)
[2018-07-12] MEDS ORDERED: CCU Electrolyte Replacement 1 EACH IVPB ONE (15:31)
[2018-07-12] MEDS ORDERED: Promethazine HCl 25 MG/ML VIAL IM/IV PRN (15:31)
[2018-07-12] MEDS ORDERED: Ondansetron PF 4 MG/2 ML Vial IVP PRN (15:31)
[2018-07-12] MEDS ORDERED: Senokot S 8.6-50 MG TAB PO PRN (15:31)
--- NOTE | 2018-07-12 15:52 | HP ---
REASON FOR ADMISSION: DKA. HISTORY OF PRESENTING ILLNESS: The patient gives history of running out of his usual insulin from yesterday. He says he was too sick to go to [facility] to get it filled. The patient states he does not see a doctor, but usually gets his Novolin medications without prescription at [facility]. He started having severe nausea, vomiting, and retching. It cause retrosternal burning sensation and knew his sugar was high. Managed to stay till this morning at home, finally made it to the emergency room. No complaints of urinary frequency, burning, or urgency. No complaints of cough or expectoration. PAST MEDICAL/SURGICAL HISTORY: History of diabetes mellitus type 1, gastroparesis, and history of AFib. CURRENT MEDICATIONS: The patient has run out of all this insulins at home. He states he takes Novolin N 20 units in the morning, 30 units in the afternoon and another dose at night depending on the sugars. He says it is a combination of long and short-acting insulin. ALLERGIES: NO KNOWN DRUG ALLERGIES. PERSONAL HISTORY: Smokes 1 pack a day. Uses marijuana occasionally. Does not abuse other drugs. Does not use alcohol. Lives with his and children. FAMILY HISTORY: Mother is living, but she is getting tested for multiple diseases at present. Father at the age of 46. He has had severe emphysema. CODE STATUS: Full. Power of collections attorney is his . REVIEW OF SYSTEMS: CONSTITUTIONAL: Negative for weight loss or gain, ability to conduct usual activities. SKIN: Negative for rash, itching. EYES: Negative for double vision, pain. ENT/MOUTH: Negative for nose bleeding, neck stiffness, pain, tenderness. CARDIOVASCULAR: Negative for palpitations, dyspnea on exertion, orthopnea. RESPIRATORY: Negative for shortness of breath, wheezing, cough, hemoptysis, fever or night sweats. GASTROINTESTINAL: Negative for poor appetite, abdominal pain, heartburn, nausea, vomiting, constipation, or diarrhea. GENITOURINARY: Negative for urgency, frequency, dysuria, nocturia. MUSCULOSKELETAL: Negative for pain, swelling. NEUROLOGIC/PSYCHIATRIC: Negative for anxiety, depression. ALLERGY/IMMUNOLOGIC: Negative for skin rash, bleeding tendency. PHYSICAL EXAMINATION: GENERAL: The patient is a 27-year-old male, who is currently in mild distress from nausea. VITAL SIGNS: Blood pressure 150/86, pulse 110 per minute, respiratory rate 20 per minute, temperature 98.6 degrees Fahrenheit, and saturating 98% on room air. NECK: Supple. No elevated JVD. HEENT: Eyes; extraocular muscles intact. Pupils reacting to light. Oral cavity, mucous membranes are dry. No exudates or congestion. CARDIOVASCULAR SYSTEM: S1 and S2 heard. Regular rhythm. RESPIRATORY SYSTEM: Air entry 1+ bilateral. Scattered rhonchi plus no rales or wheezes. ABDOMEN: Soft. Bowel sounds heard. Mild tenderness in the epigastric area. No rigidity or guarding. EXTREMITIES: No peripheral edema or calf tenderness. VASCULAR SYSTEM: Peripheral pulses 1+ bilateral. No ischemic ulcerations or gangrene. CENTRAL NERVOUS SYSTEM: No gross focal deficits noted. The patient is alert, awake, and oriented well. PSYCHIATRIC SYSTEM: The patient's mood is euthymic. No hallucinations or delusions. LABORATORY DATA: White count of 12, H and H of 15 and 46, platelet count 202, and MCV is 91 with 69% neutrophils. Serum bicarb is 20, BUN 20, creatinine 1.29, serum glucose 448, and albumin is 5.2. Beta-hydroxybutyrate 3.38. CLINICAL IMPRESSION AND PLAN: The patient will be admitted to [facility] for diabetic ketoacidosis due to noncompliance with medication. We will follow diabetic ketoacidosis evidence based protocol. The patient is severely dehydrated at present. He is also requesting Phenergan for intractable nausea and vomiting. We will also place him on Protonix 40 mg IV q.12 hourly. If needed, Reglan will be added depending on the patient's progress. Currently, he will be n.p.o. except for ice chips due to diabetic ketoacidosis protocol. We will continue to closely monitor him in [facility]. He is currently in sinus rhythm. There is no evidence of atrial fibrillation at present. Job ID: [id number]
[2018-07-12 15:59] LABS: Anion Gap 18 mmol/L (10-20); BUN (Urea Nitrogen) 19 mg/dL (8.9-20.6); Calc. Creatinine Clearance 121 mL/min (70-130); Calcium 9.9 mg/dL (7.8-10.44); Carbon Dioxide 21 mmol/L (22-29); Chloride 107 mmol/L (98-107); Estimated GFR-MDRD 90; Glucose 242 mg/dL (70-105); Potassium 4.1 mmol/L (3.5-5.1); Sodium 142 mmol/L (136-145)
[2018-07-12] MEDS: D5 1/2 NS w/20 mEq KCL 1,000 ML IV PRN ×2 (19:01→22:43)
[2018-07-12] MEDS: Pantoprazole 40 MG VIAL IVP SCH (21:00)
[2018-07-13] MEDS: D5 1/2 NS w/20 mEq KCL 1,000 ML IV PRN (03:15)
[2018-07-13 04:42] LABS: Anion Gap 9 mmol/L (10-20); BUN (Urea Nitrogen) 14 mg/dL (8.9-20.6); Calc. Creatinine Clearance 122 mL/min (70-130); Calcium 9.6 mg/dL (7.8-10.44); Carbon Dioxide 28 mmol/L (22-29); Chloride 107 mmol/L (98-107); Estimated GFR-MDRD Greater than 90; Glucose 141 mg/dL (70-105); Potassium 3.8 mmol/L (3.5-5.1); Sodium 140 mmol/L (136-145)
[2018-07-13] MEDS: Enoxaparin Sodium 40 MG/0.4 ML SYRINGE SC SCH (09:15)
[2018-07-13] MEDS: Pantoprazole 40 MG VIAL IVP SCH (09:15)
[2018-07-13] MEDS ORDERED: Insulin Glargine 20 UNITS in Pre-Filled Syringe 1 EACH SC STA (10:56)
[2018-07-13] MEDS ORDERED: Dextrose 50% Abboject 50 ML SYRINGE SLOW IVP PRN (13:07)
[2018-07-13] MEDS ORDERED: Dextrose 5% in Water 1,000 ML IV PRN (13:07)
[2018-07-13] MEDS ORDERED: HumaLOG 300 UNITS/3 ML VIAL SC PRN ×2 (13:07)
[2018-07-13] MEDS ORDERED: Insulin Glargine 20 UNITS in Pre-Filled Syringe 1 EACH SC SCH ×2 (13:30→21:00)
--- NOTE | 2018-07-13 15:24 | PDOC.PN ---
- Subjective Encounter Start Date: 07/13/18 Encounter Start Time: 14:00 Subjective: feels better, no nausea, wants solid food -: no abd pain or headache - Objective Resuscitation Status - Order Detail: 07/12/18 15:23 Resuscitation Status Routine Resuscitation Status: FULL: Full Resuscitation MAR Reviewed: Yes Vital Signs & Weight: Vital Signs (12 hours) Temp Pulse Ox 07/13/18 15:15 98.7 F 07/13/18 11:16 98.8 F 07/13/18 08:00 98 07/13/18 07:32 99.0 F 07/13/18 04:00 98.4 F Weight Weight 169 lb 6.4 oz Most Recent Monitor Data Heart Rate from ECG 83 NIBP 123/66 NIBP BP-Mean 85 Respiration from ECG 16 SpO2 100 I&O: 07/12/18 07/13/18 07/14/18 06:59 06:59 06:59 Intake Total 4200 Output Total 1540 800 Balance 2660 -800 Result Diagrams: 07/12/18 11:35 07/13/18 03:59 Additional Labs: Accuchecks 07/13/18 07/13/18 07/13/18 13:05 12:03 11:07 POC Glucose 170 H 230 H 229 H 07/13/18 07/13/18 07/13/18 10:10 09:04 08:09 POC Glucose 217 H 244 H 199 H 07/13/18 07/13/18 07/13/18 07:00 05:57 05:07 POC Glucose 152 H 152 H 132 H 07/13/18 07/13/18 07/13/18 04:00 03:02 02:09 POC Glucose 136 H 181 H 169 H 07/13/18 07/13/18 07/12/18 01:16 00:03 23:03 POC Glucose 214 H 247 H 247 H 07/12/18 07/12/18 07/12/18 22:09 21:05 20:07 POC Glucose 267 H 238 H 169 H 07/12/18 07/12/18 07/12/18 18:54 18:02 17:06 POC Glucose 122 H 134 H 164 H 07/12/18 16:07 POC Glucose 209 H Phys Exam - Physical Examination HEENT: PERRLA, moist MMs Neck: no JVD, supple Respiratory: no wheezing, no rales Cardiovascular: RRR, no significant murmur Gastrointestinal: soft, non-tender, positive bowel sounds Musculoskeletal: no edema, pulses present Neurological: non-focal, moves all 4 limbs Psychiatric: normal affect, A&O x 3 Dx/Plan (1) DKA (diabetic ketoacidosis) Code(s): E13.10 - OTH DIABETES MELLITUS WITH KETOACIDOSIS WITHOUT COMA Status : Resolved Qualifiers: Diabetes mellitus type: type 1 Diabetes mellitus complication detail: without coma Qualified Code(s): E10.10 - Type 1 diabetes mellitus with ketoacidosis without coma (2) Epigastric abdominal pain Code(s): R10.13 - EPIGASTRIC PAIN Status: Resolved (3) Nausea & vomiting Code(s): R11.2 - NAUSEA WITH VOMITING, UNSPECIFIED Status: Resolved Qualifiers: Vomiting Intractability: intractable (4) Severe dehydration Code(s): E86.0 - DEHYDRATION Status: Resolved (5) Cannabis abuse Code(s): F12.10 - CANNABIS ABUSE, UNCOMPLICATED Status: Chronic (6) DM gastroparesis Code(s): E11.43 - TYPE 2 DIABETES W DIABETIC AUTONOMIC (POLY)NEUROPATHY; K31.84 - GASTROPARESIS Status: Chronic - Plan hemostable -: gap has closed -: start home dose insulins -: outpt meds were faxed to [facility] for medassist -: dc plan in am, tx to med floor * . Review of Systems - Medications/Allergies Allergies/Adverse Reactions: Allergies Allergy/AdvReac Type Severity Reaction Status Date / Time No Known Allergies Allergy Verified 07/12/18 18:19 Medications: Current Medications Acetaminophen (Tylenol) 650 mg PO Q4H PRN PRN Reason: Headache/Fever/Mild Pain (1-3) Last Admin: 07/12/18 15:49 Dose: 650 mg Bisacodyl (Dulcolax) 10 mg [place] DAILYPRN PRN PRN Reason: Constipation Dextrose/Water (Dextrose 50%) 25 gm SLOW IVP PRN PRN PRN Reason: Hypoglycemia Enoxaparin Sodium (Lovenox) 40 mg SC 0900 CARLEE Last Admin: 07/13/18 09:15 Dose: Not Given Glucagon (Glucagon) 1 mg IM PRN PRN PRN Reason: Hypoglycemia Guaifenesin/Dextromethorphan (Robitussin Dm) 15 ml PO Q4H PRN PRN Reason: Cough Dextrose/Water (D5w) 1,000 mls @ 0 mls/hr IV .Q0M PRN PRN Reason: Hypoglycemia Insulin Glargine 20 units/ (Miscellaneous Medication) 0.2 mls @ 0 mls/hr SC HS CARLEE Insulin Human Lispro (Humalog) 0 units SC .MODERATE SLIDING SC PRN PRN Reason: Moderate Correctional Scale Insulin Human Lispro (Humalog) 0 units SC .BEDTIME SLIDING SC PRN PRN Reason: Bedtime Correctional Scale Insulin Human NPH (Humulin N) 15 unit SC BID CARLEE Ondansetron HCl (Zofran) 4 mg IVP Q6H PRN PRN Reason: Nausea/Vomiting Promethazine HCl (Phenergan) 25 mg IM/IV Q6H PRN PRN Reason: Nausea/Vomiting Last Admin: 07/12/18 15:47 Dose: 25 mg Senna/Docusate Sodium (Senokot S) 2 tab PO BIDPRN PRN PRN Reason: Constipation Sodium Chloride (Flush - Normal Saline) 10 ml IVF Q12HR CARLEE Sodium Chloride (Flush - Normal Saline) 10 ml IVF PRN PRN PRN Reason: Saline Flush
[2018-07-13] MEDS: Lorazepam 1 MG TAB PO PRN ×2 (19:55→23:54)
[2018-07-13] MEDS: NPH, Human Insulin Isophane 300 UNIT/3 ML VIAL SC SCH (20:53)
[2018-07-14 07:02] LABS: Anion Gap 10 mmol/L (10-20); BUN (Urea Nitrogen) 12 mg/dL (8.9-20.6); Calc. Creatinine Clearance 152 mL/min (70-130); Calcium 9.5 mg/dL (7.8-10.44); Carbon Dioxide 27 mmol/L (22-29); Chloride 108 mmol/L (98-107); Estimated GFR-MDRD Greater than 90; Glucose 70 mg/dL (70-105); Potassium 3.5 mmol/L (3.5-5.1); Sodium 141 mmol/L (136-145)
[2018-07-14 07:18] VITALS: BP 119/71; TEMP 98
[2018-07-14] MEDS: Enoxaparin Sodium 40 MG/0.4 ML SYRINGE SC SCH (08:11)
[2018-07-14] MEDS: Lorazepam 1 MG TAB PO PRN (08:12)
[2018-07-14] MEDS: NPH, Human Insulin Isophane 300 UNIT/3 ML VIAL SC SCH (09:05)
--- NOTE | 2018-07-14 12:44 | PDOC.PN ---
- Subjective Encounter Start Date: 07/14/18 Encounter Start Time: 09:45 Subjective: is amb in hallway -: is ready to go home, no distress - Objective Resuscitation Status - Order Detail: 07/12/18 15:23 Resuscitation Status Routine Resuscitation Status: FULL: Full Resuscitation MAR Reviewed: Yes Vital Signs & Weight: Vital Signs (12 hours) Temp Pulse Resp BP Pulse Ox 07/14/18 08:00 100 07/14/18 07:16 98 F 87 17 119/71 97 07/14/18 04:00 98.4 F 81 16 133/75 100 Weight Weight 169 lb 6.4 oz Most Recent Monitor Data Heart Rate from ECG 83 NIBP 123/66 NIBP BP-Mean 85 Respiration from ECG 16 SpO2 100 I&O: 07/13/18 07/14/18 07/15/18 06:59 06:59 06:59 Intake Total 4200 400 Output Total 1540 1100 Balance 2660 -700 Result Diagrams: 07/12/18 11:35 07/14/18 06:22 Additional Labs: Accuchecks 07/14/18 07/13/18 07/13/18 04:58 19:59 16:49 POC Glucose 87 236 H 129 H 07/13/18 07/13/18 15:23 13:05 POC Glucose 103 170 H Phys Exam - Physical Examination HEENT: PERRLA, moist MMs Neck: no JVD, supple Respiratory: no wheezing, no rales Cardiovascular: RRR, no significant murmur Gastrointestinal: soft, non-tender, positive bowel sounds Musculoskeletal: no edema, pulses present Neurological: non-focal, moves all 4 limbs Psychiatric: normal affect, A&O x 3 Dx/Plan (1) DKA (diabetic ketoacidosis) Code(s): E13.10 - OTH DIABETES MELLITUS WITH KETOACIDOSIS WITHOUT COMA Status : Resolved Qualifiers: Diabetes mellitus type: type 1 Diabetes mellitus complication detail: without coma Qualified Code(s): E10.10 - Type 1 diabetes mellitus with ketoacidosis without coma (2) Epigastric abdominal pain Code(s): R10.13 - EPIGASTRIC PAIN Status: Resolved (3) Nausea & vomiting Code(s): R11.2 - NAUSEA WITH VOMITING, UNSPECIFIED Status: Resolved Qualifiers: Vomiting Intractability: intractable (4) Severe dehydration Code(s): E86.0 - DEHYDRATION Status: Resolved (5) Cannabis abuse Code(s): F12.10 - CANNABIS ABUSE, UNCOMPLICATED Status: Chronic (6) DM gastroparesis Code(s): E11.43 - TYPE 2 DIABETES W DIABETIC AUTONOMIC (POLY)NEUROPATHY; K31.84 - GASTROPARESIS Status: Chronic - Plan hemostable -: electrolytes are stable -: dc pt home -: counselled reg med and dietary compliance * .
--- NOTE | 2018-07-14 18:41 | DIS ---
DATE OF ADMISSION: 07/12/2018 DATE OF DISCHARGE: 07/14/2018 DISCHARGE DISPOSITION: Home. PRIMARY DISCHARGE DIAGNOSES: 1. Diabetic ketoacidosis with diabetes mellitus type 1 due to noncompliance. 2. Nausea, vomiting, abdominal pain, and severe dehydration, all of which resolved. 3. Chronic marijuana usage. 4. Diabetic gastroparesis, stable at present. PROCEDURES DONE DURING HOSPITALIZATION: H and H 15 and 46, platelet count 202. Beta-hydroxybutyrate was 3.38. Discharge serum bicarb is 27, BUN 12, creatinine 0.7. Admitting serum glucose was 448 with serum bicarb of 20. Venous blood gas done in the ER on arrival showed a pH of 7.32 with bicarb of 20. DISCHARGE MEDICATIONS: 1. Levemir 29 units subcu at bedtime. 2. NovoLog sliding scale before meals and at bedtime. ALLERGIES: NO KNOWN DRUG ALLERGIES. DISCHARGE PLAN: The patient to follow up with primary care physician in 1 week. He also needs to check his fingerstick glucose 3 times daily and record to follow up with primary care physician in 1 week. BRIEF COURSE DURING HOSPITALIZATION: The patient initially came to ER on 07/12/2018 with complaints of severe nausea, vomiting, and abdominal pain. He had also run out of his insulins. The patient was essentially admitted to IMCU for DKA due to noncompliance. He was placed on DKA protocol. The patient has responded well. There is no other inciting event for his DKA. This morning, he is ambulating and eating well, eating solid food. Initial nausea, vomiting, and abdominal pain have completely resolved. Case Management consultation was requested for help with medications. Please see a [id number] documentation for the day of discharge on [facility]. Job ID: [id number]
== END 2018-07-14 11:35 | disposition home or self-care (01) | DRG 639 ==
LOC: ERS 11:13 → IMCU/EMU 13:10 → T4-B 07-13 18:31
PROVIDERS: ADMIT Internal Medicine; ATTEND Internal Medicine
DX: E10.10 Type 1 diabetes mellitus with ketoacidosis without coma (principal); I48.91 Unspecified atrial fibrillation; F17.210 Nicotine dependence, cigarettes, uncomplicated; F32.9 Major depressive disorder, single episode, unspecified; E86.0 Dehydration; F12.10 Cannabis abuse, uncomplicated; E10.43 Type 1 diabetes mellitus with diabetic autonomic (poly)neuropathy; Z91.14 Patient's other noncompliance with medication regimen; K31.84 Gastroparesis; Z79.4 Long term (current) use of insulin
CPT/HCPCS: 36415; 36416; 80048; 80053; 81003; 82010; 82330; 82803; 83690; 84484; 85025; 93005; 96361; 96372; 96374; 96375; 96376; C9113; J0500; J1650; J1815; J1825; J2405; J2550; J3480; J3490